=== PATIENT | male | born 1945 | race Hispanic/Latino ===

== ENCOUNTER 2022-02-17 23:36 | Emergency (ER) | payer OTHER ==
--- OUTSIDE RECORDS SUMMARY | 2022-02-17 23:51 | XMS REPORT | Continuity of Care Document ---
:1945 Author Organization [facility] t Address [address] [place] [address] Dr. Pickard [address] [place] [id number] Care Team Providers Name Role Phone Unknown, Physician Primary Care Physician Unavailable SUNNY COLÓN Attending Clinician Unavailable DOROTA LIM Attending Clinician Unavailable Dorota Lim MD Attending Clinician Abeba Mcgarry MD Attending Clinician [phone] Vivian Betancourt MA Attending Clinician Unavailable Tricia Gunderson MA Attending Clinician Unavailable Dez Oliva MD Attending Clinician Yamilex Morocho RN Attending Clinician Unavailable Mony Perez RN Attending Clinician Unavailable Kenya Lieberman MA Attending Clinician Unavailable DANIELA ELKINS Attending Clinician Unavailable April Gomez LVN Attending Clinician Unavailable SUNNY COLÓN M.D. Attending Clinician Unavailable Faviola Attending Clinician Unavailable Gomez Hernandez Attending Clinician [phone] BILLIE CAMPBELL Attending Clinician Unavailable Sunny Colón Attending Clinician DOROTA LIM Admitting Clinician Unavailable ABEBA MCGARRY Admitting Clinician Unavailable Faviola Admitting Clinician Unavailable Jami Vera Admitting Clinician Payers Payer Name Policy Type Policy Number Effective Date Expiration Date S [facility] [place] A AND [id number] 2011 B 00:00:00 MEDICARE [place]: [id number] 2011 ROXIMITY 00:00:00 [employer] [id number] 2011 00:00:00 Problems Condition Condition Condition Status Onset Resolution Last Treating Co mments Source Name Details Category Date Date Treatment Clinician Date Carpal Carpal Disease Active 2020-06 Overview: Method i tunnel tunnel 0-[address] syndrome syndrome 00:00: g of this Hos jace of right of right 00 note l wrist wrist might be different from the original. Added automatic ally from request for surgery [id number] Vitiligo Vitiligo Disease Active Metho di 12-20 st 00:00: Hospita 00 l Heart Heart Disease Active Overview: Method i murmur murmur 10-[address] 00:00: g of this Hospita 00 note l might be different from the original. 10/[address] Felder mild AVS, mod to severe LAE, tr MR Recurrent Recurrent Disease Active Met [facility]odi [place] 08-04 st 00:00: Hospita 00 l Thrombocyt Thrombocyt Disease Active M ethodi openia openia 06-11 st 00:00: Hospita 00 l Anemia due Anemia due Disease Active Overview : Methodi to stage 3 to stage 3 06-[address] chronic chronic 00:00: g of this Hospi ta kidney kidney 00 note l disease disease might be different from the original. Dr Sunny Colón fax [phone] and appts [phone] Assessmen t & Plan: Formattin g of this note might be different from the original. Diabetic Diabetic Disease Active 2016-06 Overview: Tx thodi eye exam eye exam 08-[address] 00:00: g of this Hospita 00 note l might be different from the original. 05/2017 Dr Purnima Menjivar3/2 018 with DPR both eyes for 3 month fu11/2017 Dr Menjivar with macular edema abnormal exam04/[address] Menjivar5/[address] Menjivar with macular edema to keep blood sugar hgba1c <7%01/2019 / 2021 Dr Menjivar with OD injection ACUTE ACUTE Diagnosis Active 2017-04-08 Mem oria RENAL RENAL 03-01 21:56:00 l FAILURE FAILURE 00:00: [place] Active 00 03/01/2017 [facility] Encounter Encounter Disease Active Overview: [facility] Hospita 00 note l might be different from the original. 01/2017 Dr Purnima Menjivar8/2 019 has prolif retinopat hy Dr Purnima Menjivar6/2 020 did have fu DM retinopat hy for left eye avastin injection 09/[address] Menjivar6/[address] Menjivar has PDR both eyes left no macular edema for avastin injection 01/2021 did have fu and injection 08/2021 Dr Menjivar has PDR OU OD macular edema and no macular edema 12/2021 had fu PDR out for avastin injection s Dr Menjivar Anemia due Anemia due Disease Active Overview : Methodi to chronic to chronic 01-[address] kidney kidney 00:00: g of this Hospita disease disease 00 note l might be different from the original. Will see Dr Katie khoury Chronic Chronic Disease Active 2015-06 Overview: Meth solo kidney kidney 06-[address] disease, disease, 00:00: g of this Hos jace stage III stage III 00 note l (moderate) (moderate) might be different from the original. Dr Weir 06/2016 cr 2.505/[address] Matthew Colón is the new Doctor fax [phone] and phone is [phone] with [place] Physician Radha CERVANTES from [employer] ast Assessmen t & Plan: Formattin g of this note might be different from the original. Type 2 Type 2 Disease Active 2015-06 Methodi diabetes diabetes - st mellitus mellitus 00:00: Hospit a with renal with renal 00 l complicati complicati on on Aortic Aortic Disease Active Overview: Method i valve valve 01-[address] stenosis stenosis 00:00: g of this Hos jace 00 note l might be different from the original. 12/2014 was mild stenosis2 013 echo and nuclear stress (wnl) CXR10/201 7 severe LAE, mild and mild TR and severe pulmonary HTNPleura l eff 11/03/2020 echo LVH mild to mod, EF 60-65%, AV stenosis mild Dr Felder Hematuria Hematuria Disease Active 2010-06 Met hodi 2-14 st 00:00: Hospita 00 l Proteinuri Proteinuri Disease Active 2010-06 Overview : Methodi a a 07-[address] 00:00: g of this Hospita 00 note l might be different from the original. Overview: Proteinur ia-12/201 2-3000 mg. Vitamin D Vitamin D Disease Active 2010-06 Met hodi deficiency deficiency 07-10 00:00: Hospita 00 l Hypertrigl Hypertrigl Disease Active 2007-06 M ethodi yceridemia yceridemia 00:00: Hospita 00 l Hypertensi Hypertensi Disease Active 2007-06 M ethodi on on 00:00: Hospita 00 l Cerebrovas Cerebrovas Disease Active 2004-06 Overview : Methodi cular cular [address] accident accident 00:00: g of this Hos jace (CVA) (CVA) 00 note l might be different from the original. Overview: hemorrhag ic 2006 Acute Acute Problem Active [facility] renal renal Physici failure failure ans superimpos superimpos ed on ed on stage 3 stage 3 chronic chronic kidney kidney disease disease Malnutriti Malnutriti Problem Active U T on on Physici ans Obstructiv Obstructi Problem Resolve 2017-04-04 Memoria e sleep ve sleep d 00:34:24 l apnea apnea [place] syndrome syndrome (disorder) (disorder) Resolved Problem 04/04/2017 [facility] Diabetes Diabetes Problem Resolve 2017-04-04 Memoria mellitus mellitus d 00:34:24 l (disorder) (disorder) He rmann Resolved Problem 04/04/2017 [facility] Hyperlipid Hyperlipi Problem Resolve 2017-04-04 Memoria emia demia d 00:34:24 l (disorder) (disorder) He rmann Resolved Problem 04/04/2017 [facility] Allergies, Adverse Reactions, Alerts Allergy Allergy Status Severity Reaction(s) Onset Inactive Treating Comm ents Source Name Type Date Date Clinician Cefepime Propensi Active Other (See 2018-06 ATN/AIN M ethodi ty to Comments) adverse 00:00: Hospita reaction 00 l s to drug Matt Propensi Active 2016-06 angioedem Metho di Inhibito ty to 06-19 st rs adverse 00:00: Hospita reaction 00 l s to drug MATT Allergy Active [facility] Inhibito to drug Physici rs (finding ans ) MATT MATT Active Severe Memoria Inhibito Inhibito l rs<sup>1 rs<sup>1 Alli n </sup> </sup> cefepime cefepime Active Memori a <sup>2</ <sup>2</ l sup> sup> [place] Family History Family Member Diagnosis Comments Start Date Stop Date Source Natural father Diabetes [facility] Natural father Hypertension [facility] Natural father Stroke [facility] mother Diabetes [facility] mother Hypertension [facility] mother Stroke [facility] Social History Social Habit Start Date Stop Date Quantity Comments Source Exposure to Not sure [facility] SARS-CoV-2 (event) History SDOH [facility] History SDOH [facility] Drinks History SDOH [facility] Alcohol Binge Medical [facility] ter Alcohol intake 2021-12-12 2021-12-12 Current drinker of [facility]ist 00:00:00 00:00:00 alcohol (finding) Hospita l Alcohol Comment 2021-12-12 2021-12-[address] 00:00:00 00:00:00 glasses of wine Hospital 1-2 x per month Tobacco use and 2021-03-29 2021-03-29 Smokeless tobacco [facility] exposure 00:00:00 00:00:00 non-user Hospital Sex Assigned At [address] [facility] 00:[facility]00 [facility]00 [facility] Smoking Status Start Date Stop Date Source Tobacco smoking consumption unknown [facility] Medications Ordered Filled Start Stop Current Ordering Indication Dosage Frequency Signature Comments Components Source Medication Medication Date Date Medication? Clinician (SIG) Name Name potassium Yes TAKE ONE Meth solo chloride 9-[address] (K-DUR) 10 00:00: MOUTH Hospit a MEQ CR 00 DAILY l tablet carvediloL Yes TAKE THREE M ethodi (COREG) 8-[address] 12.5 MG 00:00: MOUTH Hospita tablet 00 TWICE A l DAY WITH A MEAL BUMETanide Yes TAKE TWO Met hodi (BUMEX) 1 8-[address] MG tablet 00:00: MOUTH Hospita 00 EVERY l MORNING AND 1 TABLET IN EVENING allopurinoL Yes 300mg QD Take 1 Met hodi (ZYLOPRIM) 8-[address] 300 MG 00:00: (300 mg Hospita tablet 00 total) by l mouth daily. allopurinoL 2021- No TAKE ONE M ethodi (ZYLOPRIM) - 08-[address] 300 MG 00:00: 00:00 MOUTH Hospita tablet 00 :00 DAILY l hydrALAZINE Yes TAKE ONE Me thodi (APRESOLINE 7-[address] ) 25 MG 00:00: MOUTH Hospita tablet 00 THREE l TIMES A DAY GUAIFENESIN Yes Take by Met hodi /DEXTROMETH 7-[address] ORPHAN 10:22: Hospita (CORICIDIN 18 l HBP ORAL) cholecalcif Yes 2000U QD Take 2,000 Methodi jacobo, 7-[address] vitamin D3, 10:22: mouth Hospi ta (VITAMIN 18 daily. l D3) 1,000 unit tablet pseudoepHED Yes 1{tbl} Q12H Take 1 Me thodi rine-guaife 7- tablet by st nesin 10:22: mouth Hospita (MUCINEX D) 18 every 12 l 60-600 mg (twelve) per 12 hr hours as tablet needed for allergies. glimepiride Yes [id number] TAKE ONE Methodi (AMARYL) 1 -[address] MG tablet 00:00: MOUTH Hospita 00 DAILY l BEFORE BREAKFAST BUMETanide 2021- No TAKE TWO Me thodi (BUMEX) 1 6-27 08- TABLETS BY st MG tablet 00:00: 00:00 MOUTH Hospit a 00 :00 EVERY l MORNING AND ONE TABLET IN THE EVENING clotrimazol Yes [id number] APPLY TO Methodi e-betametha -[address] sone 00:00: AREA(S) Hospita (LOTRISONE) 00 TWO TIMES l 1-0.05 % A DAY cream carvediloL 2021- No TAKE THREE Methodi (COREG) 4-29 08-[address] 12.5 MG 00:00: 00:00 MOUTH Hospita tablet 00 :00 TWICE A l DAY WITH A MEAL BUMETanide 2021- No TAKE TWO Me thodi (BUMEX) 1 -29 06-[address] MG tablet 00:00: 00:00 MOUTH Hospit a 00 :00 EVERY l MORNING AND TAKE ONE TABLET BY MOUTH EVERY EVENING Accu-Chek Yes [id number] USE ONE M ethodi Softclix 4-[address] Lancets 00:00: TEST DAILY Hosp molina lancets 00 l hydrALAZINE 2021- No 25mg Q.[id number] Take 1 Methodi (APRESOLINE 4- 07-10 [id number] tablet (25 st ) 25 MG 00:00: 00:00 3D mg total) Hosp molina tablet 00 :00 by mouth 3 l (three) times a day. Accu-Chek Yes [id number] USE ONE M ethodi Alison Plus 3-[address] test strp 00:00: TEST DAILY Ho spita strip test 00 l strips potassium 2021- No 10meq QD Take 1 Meth solo chloride 3- 09-02 tablet (10 st (K-DUR) 10 00:00: 00:00 mEq total) Hospita MEQ CR 00 :00 by mouth l tablet daily. BUMETanide 2021- No TAKE TWO Me thodi (BUMEX) 1 08-05-[address] MG tablet 00:00: 00:00 MOUTH Hospit a 00 :00 EVERY l MORNING AND TAKE ONE TABLET BY MOUTH EVERY EVENING Accu-Chek 2021- No [id number] USE ONE Methodi Softclix 2-01 10-[address] Lancets 00:00: 00:00 TEST DAILY Hos jace lancets 00 :00 l hydrALAZINE 2021- No TAKE ONE M ethodi (APRESOLINE 1- 04-[address] ) 25 MG 00:00: 00:00 MOUTH Hospita tablet 00 :00 THREE l TIMES A DAY carvediloL 2020-06- No TAKE 3 Meth solo (COREG) 2-28 04-[address] 12.5 MG 00:00: 00:00 MOUTH TWO Hosp molina tablet 00 :00 TIMES A l DAY WITH A MEAL BUMETanide 2020-06 No TAKE TWO Me thodi (BUMEX) 1 2-28 02-[address] MG tablet 00:00: 00:00 MOUTH Hospit a 00 :00 EVERY l MORNING AND TAKE ONE TABLET BY MOUTH EVERY EVENING acetaminoph 2020-06 [place] [id number] 1{tbl} Q4H Take 1-2 Methodi en-codeine 2-10 12-[address] (TYLENOL 00:00: 05:59 mouth Hospita WITH 00 :00 every 4 l CODEINE #3) (four) 300-30 mg hours as per tablet needed for moderate pain for up to 3 days .acute pain. NIFEdipine 2020-06 No 30mg QD Take 1 Meth solo ER 07-10 tablet (30 st (PROCARDIA- 00:00: 05:59 mg total) Hospita XL) 30 MG 00 :00 by mouth l 24 hr daily. tablet clotrimazol 2020-06 No [id number] APPLY TO Methodi e-betametha 07-[address] sone 00:00: 00:00 AREA(S) Hospita (LOTRISONE) 00 :00 TWO TIMES l 1-0.05 % A DAY cream tamsulosin 2020-06 Yes TAKE ONE Met hodi (FLOMAX) 0-[address] 0.4 mg 00:00: MOUTH Hospita capsule 00 DAILY l BUMETanide 2020-06- No TAKE TWO Me thodi (BUMEX) 1 0-29 12-[address] MG tablet 00:00: 00:00 MOUTH Hospit a 00 :00 EVERY l MORNING AND 1 TABLET IN EVENING doxycycline 2020-06 Yes 100mg Q.5D Take 100 U T (Vibramycin 0-28 mg by Health ) 100 MG 13:39: mouth 2 capsule 10 (two) times a day. Take with at least 8 ounces (large glass) of water, do not lie down for 30 minutes after glimepiride 2020-06 Yes 1mg Take 1 mg U T (Amaryl) 1 0-28 by mouth 1 Hea lth MG tablet 13:39: (one) time 10 each day before breakfast. hydrALAZINE 2020-06 Yes 25mg Q.[id number] Take 25 mg UT (Apresoline 0-28 [id number] by mouth 3 Health ) 25 MG 13:39: 3D (three) tablet 10 times a day. NIFEdipine 2020-06 Yes 30mg Take 30 mg U T CC (Adalat 0-28 by mouth 1 Hea lth CC) 30 MG 13:39: (one) time 24 hr 10 each day tablet before breakfast. Do not crush, chew, or split. predniSONE 2020-06 Yes 10mg QD Take 10 mg U T (Deltasone) 0-28 by mouth 1 He alth 10 MG 13:39: (one) time tablet 10 each day. atorvastati 2020-06 Yes 20mg QD Take 20 mg UT n (Lipitor) 0-28 by mouth 1 He alth 20 MG 13:39: (one) time tablet 10 each day. bumetanide 2020-06 Yes 1mg Q.5D Take 1 mg UT (Bumex) 0.5 0-28 by mouth 2 He alth MG tablet 13:39: (two) 10 times a day. carvedilol 2020-06 Yes 37mg Take 37 mg U T (Coreg) 0-28 by mouth 2 Health 12.5 MG 13:39: (two) tablet 10 times a day with meals. ergocalcife 2020-06 Yes [id number] Take UT rol 0-28 50,000 Health (Vitamin 13:39: Units by D-2) 1.25 10 mouth 1 MG ([id number] (one) time UT) capsule per week. allopurinol 2020-06 Yes 300mg QD Take 300 U T (Zyloprim) 0-28 mg by Health 300 MG 13:39: mouth 1 tablet 08 (one) time each day. doxycycline 2020-06- No [id number] 100mg Q.5D Take 1 Methodi (VIBRAMYCIN 0-26 11-[address] ) 100 MG 00:00: 04:59 (100 mg Hospi ta capsule 00 :00 total) by l mouth 2 (two) times a day for 7 days. predniSONE 2020-06- No [id number] 10mg QD Take 1 Methodi (DELTASONE) 0-26 11-03 tablet (10 s t 10 mg 00:00: 04:59 mg total) Hospit a tablet 00 :00 by mouth l daily for 7 days. NIFEdipine 2020-06 No 30mg QD Take 1 Meth solo ER 0 12- tablet (30 st (PROCARDIA- 00:00: 00:00 mg total) Hospita XL) 30 MG 00 :00 by mouth l 24 hr daily. tablet glimepiride 2021- No [id number] TAKE ONE Methodi (AMARYL) 1 01-11- TABLET BY st MG tablet 00:00: 00:00 MOUTH Hospit a 00 :00 DAILY l BEFORE BREAKFAST carvediloL 2020- No TAKE THREE Methodi (COREG) 01-11- TABLETS BY st 12.5 MG 00:00: 00:00 MOUTH Hospita tablet 00 :00 TWICE A l DAY WITH MEAL allopurinoL No 300mg QD Take 1 Me thodi (Zyloprim) 01-[address] 300 MG 00:00: 00:00 (300 mg Hospita tablet 00 :00 total) by l mouth daily. clotrimazol 2020- No [id number] APPLY TO Methodi e-betametha 01-[address] sone 00:00: 00:00 AREA(S) Hospita (LOTRISONE) 00 :00 TWO TIMES l 1-0.05 % A DAY cream BUMETanide 2020- No TAKE TWO Me thodi (BUMEX) 1 12-10 10-[address] MG tablet 00:00: 00:00 MOUTH Hospit a 00 :00 EVERY l MORNING AND TAKE ONE TABLET BY MOUTH EVERY EVENING NIFEdipine No 60mg QD Take 1 Meth solo XL 3-16 - tablet (60 st (PROCARDIA 00:00: 00:00 mg total) H ospita XL) 60 MG 00 :00 by mouth l 24 hr daily. tablet Accu-Chek 2021- No USE ONE Meth solo Alison Plus 07-[address] test strp 00:00: 00:00 TEST DAILY H ospita strip test 00 :00 l strips Accu-Chek 2021- No [id number] TESTING Methodi Softclix 2- DAILY st Lancets 00:00: 00:00 Hospita lancets 00 :00 l atorvastati 2019-06 Yes 20mg QD Take 1 Meth solo n (Lipitor) 2-16 tablet (20 st 20 mg 00:00: mg total) Hospita tablet 00 by mouth l daily. Default OP ins hydrALAZINE 2019-06- No TAKE ONE M ethodi (APRESOLINE 07-[address] ) 25 MG 00:00: 00:00 MOUTH Hospita tablet 00 :00 THREE l TIMES A DAY tamsulosin 2019-06- No TAKE ONE Me thodi (FLOMAX) 07-[address] 0.4 mg 00:00: 00:00 MOUTH Hospita capsule 00 :00 DAILY l predniSONE 2016-06 Yes See Memoria 5 mg oral 0-25 Instructio l tablet 15:20: ns, Take 3 Damari nn 00 tablets by mouth daily for three days (04/03-), then 2 tablet by mouth for five days (04/06-) and then 1 tablet by mouth for five days (04/11-), # 24 tab, 0 Refill(s) predniSONE 2016-06 Yes See Memoria 5 mg oral 0-25 Instructio l tablet 15:20: ns, Take 3 Damari nn 00 tablets by mouth daily for three days (04/03-), then 2 tablet by mouth for five days (04/06-) and then 1 tablet by mouth for five days (04/11-), # 24 tab, 0 Refill(s) aspirin 81 2016-06 Yes 81 mg = 1 Me moria mg tablet, 0-25 tab, PO, l enteric 15:15: Daily, # Alli n coated 00 30 tab, 3 Refill(s) aspirin 81 2016-06 Yes 81 mg = 1 Me moria mg tablet, 0-25 tab, PO, l enteric 15:15: Daily, # Alli n coated 00 30 tab, 3 Refill(s) NIFEdipine 2016-06 Yes 90 mg = 1 Me moria 90 mg oral 0-25 tab, PO, l tablet, 14:50: Daily, # Alli n extended 00 30 tab, 0 release Refill(s) QUEtiapine 2016-06 Yes 25 mg = 1 Me moria 25 mg oral 0-25 tab, PO, l tablet 14:50: Bedtime, # Damari nn 00 30 tab, 0 Refill(s) bumetanide 2016-06 Yes See Memoria 1 mg oral 0-25 Instructio l tablet 14:50: ns, Take 2 Damari nn 00 tablets (2 mg) by mouth in the morning and 1 tablet (1 mg) by mouth in the evening, # 90 tab, 0 Refill(s) atorvastati 2016-06 Yes 40 mg = 1 M emoria n 40 mg 0-25 tab, PO, l oral tablet 14:50: Bedtime, # [place] 00 30 tab, 0 Refill(s) Ranitidine 2016-06 Yes 150 mg = Mem oria 15 MG/ML 0-25 10 mL, PO, l Oral 14:50: Bedtime, # [place] Solution 00 300 mL, 0 Refill(s) Hydralazine 2016-06 Yes 25 mg = 1 M emoria Hydrochlori 0-25 tab, PO, l de 25 MG 14:50: TID, # 90 Herm shira Oral Tablet 00 tab, 0 Refill(s) carvedilol 2016-06 Yes 37.5 mg = Me moria 12.5 mg 0-25 3 tab, PO, l oral tablet 14:50: Q12H, # Her medrano 00 180 tab, 0 Refill(s) cholecalcif 2016-06 Yes 2,000 Memor ia jacobo 1000 0-25 IntlUnit = l intl units 14:50: 2 tab, PO, H ermann oral tablet 00 Daily, # 60 tab, 0 Refill(s) tamsulosin 2016-06 Yes 0.4 mg = 1 M emoria 0.4 mg oral 0-25 cap, PO, l capsule 14:50: After [place] 00 Dinner, # 30 cap, 0 Refill(s) NIFEdipine 2016-06 Yes 90 mg = 1 Me moria 90 mg oral 0-25 tab, PO, l tablet, 14:50: Daily, # Alli n extended 00 30 tab, 0 release Refill(s) QUEtiapine 2016-06 Yes 25 mg = 1 Me moria 25 mg oral 0-25 tab, PO, l tablet 14:50: Bedtime, # Damari nn 00 30 tab, 0 Refill(s) bumetanide 2016-06 Yes See Memoria 1 mg oral 0-25 Instructio l tablet 14:50: ns, Take 2 Damari nn 00 tablets (2 mg) by mouth in the morning and 1 tablet (1 mg) by mouth in the evening, # 90 tab, 0 Refill(s) atorvastati 2016-06 Yes 40 mg = 1 M emoria n 40 mg 0-25 tab, PO, l oral tablet 14:50: Bedtime, # [place] 00 30 tab, 0 Refill(s) Ranitidine 2016-06 Yes 150 mg = Mem oria 15 MG/ML 0-25 10 mL, PO, l Oral 14:50: Bedtime, # [place] Solution 00 300 mL, 0 Refill(s) Hydralazine 2016-06 Yes 25 mg = 1 M emoria Hydrochlori 0-25 tab, PO, l de 25 MG 14:50: TID, # 90 Herm shira Oral Tablet 00 tab, 0 Refill(s) carvedilol 2016-06 Yes 37.5 mg = Me moria 12.5 mg 0-25 3 tab, PO, l oral tablet 14:50: Q12H, # Her medrano 00 180 tab, 0 Refill(s) cholecalcif 2016-06 Yes 2,000 Memor ia jacobo 1000 0-25 IntlUnit = l intl units 14:50: 2 tab, PO, H ermann oral tablet 00 Daily, # 60 tab, 0 Refill(s) tamsulosin 2016-06 Yes 0.4 mg = 1 M emoria 0.4 mg oral 0-25 cap, PO, l capsule 14:50: After Dinner, # 30 cap, 0 Refill(s) heparin 2016-06 No Notes: Memoria 0-25 porcine l 05:00: heparin heparin 2016-06 No Notes: Memoria 0-25 porcine l 05:00: heparin Bumex 2016-06 No Notes: Memoria 0-24 (Same As: l 22:00: Bumex) Lovenox 2016-06 No 40 mg, Memoria 0-24 Route: l 22:00: SUB-Q, Drug form: INJ, [id number], Dosing Weight 102.455, kg, Start date: 04/01/17 17:00:00 CDT, Duration: 30 day, Stop date: 04/30/17 17:00:00 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 Expires in days from ____Date Insulin 2016-06 No 60 units) Vince yasmany Lispro 0-24 WASTE: F/P l 18:51: - Black; E - Municipal Trash Bin Stable for 28 days at room temperatur e. Expires in days from ____Date Bumetanide 2016-06 No Notes: Memor ia 0-24 (Same As: l 16:49: Bumex) Bumetanide 2016-06 No Notes: Memor ia 0-24 (Same As: l 16:49: Bumex) Prednisone 2016-06 No Notes: Memor ia 0-24 Take with l 14:00: food. Prednisone 2016-06 No Notes: Memor ia 0-24 Take with l 14:00: food. Insulin 2016-06 No 60 units) Vince yasmany Lispro 0-24 WASTE: F/P l 12:30: - Black; E - Municipal Trash Bin Stable for 28 days at room temperatur e. Expires in days from ____Date Insulin 2016-06 No 60 units) Vince yasmany Lispro 0-24 WASTE: F/P l 12:30: - Black; E [place] 00 - Municipal Trash Bin Stable for 28 days at room temperatur e. Expires in days from ____Date Insulin 2016-06 No 60 units) Vince yasmany regular 0-22 WASTE: F/P l 15:07: - Black; E [place] 00 - Municipal Trash Bin Stable for 28 days at room temperatur e Expires in days from ____Date Insulin 2016-06 No 60 units) Vince yasmany regular 0-22 WASTE: F/P l 15:07: - Black; E [place] 00 - Municipal Trash Bin Stable for 28 days at room temperatur e Expires in days from ____Date Prednisone 2016-06 No Notes: Memor ia 0-21 Take with l 14:00: food. [place] 00 Prednisone 2016-06 No Notes: Memor ia 0-21 Take with l 14:00: food. [place] 00 Coreg 2016-06 No Notes: Memoria 0-19 Give with l 15:30: food. [place] 00 (Same As: Coreg) Coreg 2016-06 No Notes: Memoria 0-19 Give with l 15:30: food. [place] 00 (Same As: Coreg) insulin 2016-06 No Notes: Memoria glargine 0-19 Same as: l 15:00: Lantus) Do [place] 00 not hold insulin without contacting prescriber WASTE: F/P - Black; E - Municipal Trash Bin Insulin 2016-06 No Notes: Memoria Glargine 0-19 Same as: l 100 UNT/ML 15:00: Lantus) Do H ermann Injectable 00 not hold Solution insulin [Lantus] without contacting prescriber WASTE: F/P - Black; E - Municipal Trash Bin insulin 2016-06 No Notes: Memoria glargine 0-19 Same as: l 15:00: Lantus) Do [place] 00 not hold insulin without contacting prescriber WASTE: F/P - Black; E - Municipal Trash Bin Insulin 2016-06 No Notes: Memoria Glargine 0-19 Same as: l 100 UNT/ML 15:00: Lantus) Do H ermann Injectable 00 not hold Solution insulin [Lantus] without contacting prescriber WASTE: F/P - Black; E - Municipal Trash Bin Prednisone 2016-06 No Notes: Memor ia 0-19 Take with l 14:00: food. [place] 00 Prednisone 2016-06 No Notes: Memor ia 0-19 Take with l 14:00: food. Insulin 2016-06 No 5 unit, Memoria regular 0-19 Route: l 02:05: SUB-Q, [place] 00 ONCE, Dosing Weight 102.455, kg, Start date: 03/26/17 21:05:00 CDT, Stop date: 03/26/17 21:05:00 CDT Insulin 2016-06 No 5 unit, Memoria regular 0-19 Route: l 02:05: SUB-Q, [place] 00 ONCE, Dosing Weight 102.455, kg, Start date: 03/26/17 21:05:00 CDT, Stop date: 03/26/17 21:05:00 CDT Calmoseptin 2016-06 No 1 appl, Mem oria e 0-18 Route: l 14:00: TOP, [place] 00 Daily, Start date: 03/26/17 9:00:00 CDT, Duration: 30 day, Stop date: 04/24/17 9:00:00 MELTER CLERK Calmoseptin 2016-06 No 1 appl, Mem oria e 0-18 Route: l 14:00: TOP, [place] 00 Daily, Start date: 03/26/17 9:00:00 CDT, Duration: 30 day, Stop date: 04/24/17 9:00:00 MELTER CLERK Lidocaine 2016-06 No Notes: Memori a Hydrochlori 0-17 (Same as: l de 10 MG/ML 20:50: Xylocaine) [place] Injectable 00 Solution Lidocaine 2016-06 No Notes: Memori a Hydrochlori 0-17 (Same as: l de 10 MG/ML 20:50: Xylocaine) [place] Injectable 00 Solution hydrALAZINE 2016-06 No Notes: Vince yasmany 0-17 (Same as: l 17:00: Apresoline [place] 00 ) May interfere w/enteral feedings Take With Food. hydrALAZINE 2016-06 No Notes: Vince yasmany 0-17 (Same as: l 17:00: Apresoline [place] 00 ) May interfere w/enteral feedings Take With Food. Hydralazine 2016-06 No 20 mg, Vinec yasmany 0-17 Route: PO, l 16:23: Drug form: [place] 00 TAB, Q6H, Dosing Weight 102.455, kg, Priority: NOW, Start date: 03/25/17 11:23:00 CDT, Duration: 30 day, Stop date: 04/24/17 6:00:00 MELTER CLERK Hydralazine 2016-06 No 20 mg, Vince yasmany 0-17 Route: PO, l 16:23: Drug form: [place] 00 TAB, Q6H, Dosing Weight 102.455, kg, Priority: NOW, Start date: 03/25/17 11:23:00 CDT, Duration: 30 day, Stop date: 04/24/17 6:00:00 MELTER CLERK Hydralazine 2016-06 No Notes: Vince yasmany 0-17 (Same as: l 11:32: Apresoline [place] 00 ) Push over 5 minutes Hydralazine 2016-06 No Notes: Vince yasmany 0-17 (Same as: l 11:32: Apresoline [place] 00 ) Push over 5 minutes Calmoseptin 2016-06 No Notes: Vince yasmany e 0-14 (Same as: l 15:42: Calmosepti [place] ne) Calmoseptin 2016-06 No Notes: Vince yasmany e 0-14 (Same as: l 15:42: Calmosepti [place] 00 ne) Prednisone 2016-06 No Notes: Memor ia 0-14 (Same as: l 14:07: PredniSONE [place] 00 ) Take with food. Prednisone 2016-06 No Notes: Memor ia 0-14 (Same as: l 14:07: PredniSONE [place] ) Take with food. Ranitidine 2016-06 No Notes: Memor ia 0-14 (Same l 02:00: as:Zantac) [place] 00 Take before or with meals Ranitidine 2016-06 No Notes: Memor ia 0-14 (Same l 02:00: as:Zantac) [place] 00 Take before or with meals Fentanyl 2016-06 No 50 Memoria 0-13 microgram, l 17:14: Route: IV, [place] 00 ONCE, Dosing Weight 102.455, kg, Start date: 03/21/17 12:14:00 CDT, Stop date: 03/21/17 12:14:00 CDT Fentanyl 2017- No 50 Memoria 0-13 microgram, l 17:14: Route: IV, [place] 00 ONCE, Dosing Weight 102.455, kg, Start date: 03/21/17 12:14:00 CDT, Stop date: 03/21/17 12:14:00 CDT Midazolam 2017- No 1 mg, Memoria 0-13 Route: IV, l 17:13: ONCE, Dosing Weight 102.455, kg, Start date: 03/21/17 12:13:00 CDT, Stop date: 03/21/17 12:13:00 CDT Midazolam 2017- No 1 mg, Memoria 0-13 Route: IV, l 17:13: ONCE, Dosing Weight 102.455, kg, Start date: 03/21/17 12:13:00 CDT, Stop date: 03/21/17 12:13:00 CDT Midazolam 2017-1 No 0.5 mg, Memor ia 0-13 Route: IV, l 16:30: ONCE, Dosing Weight 102.455, kg, Start date: 03/21/17 11:30:00 CDT, Stop date: 03/21/17 11:30:00 CDT Fentanyl 2017- No 25 [facility]oria 0-13 microgram, l 16:30: Route: IV, ONCE, Dosing Weight 102.455, kg, Start date: 03/21/17 11:30:00 CDT, Stop date: 03/21/17 11:30:00 CDT Midazolam 2017-1 No 0.5 mg, Memor ia 0-13 Route: IV, l 16:30: ONCE, Dosing Weight 102.455, kg, Start date: 03/21/17 11:30:00 CDT, Stop date: 03/21/17 11:30:00 CDT Fentanyl 2017-1 No 25 Memoria 0-13 microgram, l 16:30: Route: IV, ONCE, Dosing Weight 102.455, kg, Start date: 03/21/17 11:30:00 CDT, Stop date: 03/21/17 11:30:00 CDT Prednisone 2016-06 No 80 mg, Memor ia 0-13 Route: PO, l 14:00: Daily, Dosing Weight 102.455, kg, Start date: 03/21/17 9:00:00 CDT, Duration: 30 day, Stop date: 04/19/17 9:00:00 MELTER CLERK Insulin 2016-06 No Notes: [facility] Glargine 0-13 Same as: l 100 UNT/ML 14:00: Lantus) Do H ermann Injectable 00 not hold Solution insulin [Lantus] without contacting prescriber WASTE: F/P - Black; E - Municipal Trash Bin Prednisone 2016-06 No 80 mg, Memor ia 0-13 Route: PO, l 14:00: Daily, Dosing Weight 102.455, kg, Start date: 03/21/17 9:00:00 CDT, Duration: 30 day, Stop date: 04/19/17 9:00:00 MELTER CLERK Insulin 2016-06 No Notes: [facility] Glargine 0-13 Same as: l 100 UNT/ML 14:00: Lantus) Do H [place] Injectable 00 not hold Solution insulin [Lantus] without contacting prescriber WASTE: F/P - Black; E - Municipal Trash Bin remove 2016-06 No Notes: Memoria patch 0-13 Remove l 02:00: patch 12 [place] 00 hours after applicatio n each day. remove 2016-06 No Notes: Memoria patch 0-13 Remove l 02:00: patch 12 [place] 00 hours after applicatio n each day. Prednisone 2016-06 No Notes: Memor ia 0-12 Take with l 22:05: food. [place] 00 Prednisone 2016-06 No Notes: Memor ia 0-12 Take with l 22:05: food. Colchicine 2016-06 No 0.6 mg, 1 Me moria 0-12 tab, l 14:00: Route: PO, Drug form: TAB, Daily, Dosing Weight 102.455, kg, Start date: 03/20/17 9:00:00 CDT, Duration: 30 day, Stop date: 04/18/17 9:00:00 MELTER CLERK Prednisone 2016-06 No Notes: Memor ia 0-12 Take with l 14:00: food. Lidocaine 2016-06 No Notes: Memori a 0.05 MG/MG 0-12 Apply only l Transdermal 14:00: once for He rmann Patch 00 up to 12 hours in a 24-hour period (12 hours on and 12 hours off). (Same as: Lidoderm) "Remove old patch before applicatio n of new patch" Colchicine 2016-06 No 0.6 mg, 1 Me moria 0-12 tab, l 14:00: Route: PO, Drug form: TAB, Daily, Dosing Weight 102.455, kg, Start date: 03/20/17 9:00:00 CDT, Duration: 30 day, Stop date: 04/18/17 9:00:00 MELTER CLERK Prednisone 2016-06 No Notes: Memor ia 0-12 Take with l 14:00: food. Lidocaine 2016-06 No Notes: Memori a 0.05 MG/MG 0-12 Apply only l Transdermal 14:00: once for He rmann Patch 00 up to 12 hours in a 24-hour period (12 hours on and 12 hours off). (Same as: Lidoderm) "Remove old patch before applicatio n of new patch" acetaminoph 2016-06 No Notes: Vince yasmany en-hydrocod 0-11 (Same as: l one 20:00: Schlater [place] 00 325/5) Do not exceed 4gm/day of acetaminop hen. acetaminoph 2016-06 No Notes: Vince yasmany en-hydrocod 0-11 (Same as: l one 20:00: Schlater [place] 00 325/5) Do not exceed 4gm/day of acetaminop hen. Morphine 2016-06 No 4 mg, Memoria 0-11 Route: l 19:27: IVP, ONCE, Dosing Weight 102.455, kg, Start date: 03/19/17 14:27:00 CDT, Stop date: 03/19/17 14:27:00 CDT Morphine 2016-06 No 4 mg, Memoria 0-11 Route: l 19:27: IVP, ONCE, Dosing Weight 102.455, kg, Start date: 03/19/17 14:27:00 CDT, Stop date: 03/19/17 14:27:00 CDT albumin 2016-06 No Notes: Lot Vince yasmany human 25% 0-11 #: l intravenous 17:00: [place] solution 00 ___ Mfg: (Same as: Plasbumin- 25) "blood product derivative " WASTE: F/P - Red; E -Red MEDICATION WASTE Product Size: 25 gm Product Wasted: ___ gm Bumetanide 2016-06 No Notes: Memor ia 0-11 (Same As: l 17:00: Bumex) [place] 00 albumin 2016-06 No Notes: Lot Vince jade human 25% 0-11 #: l intravenous 17:00: [place] solution 00 ___ Mfg: (Same as: Plasbumin- 25) "blood product derivative " WASTE: F/P - Red; E -Red MEDICATION WASTE Product Size: 25 gm Product Wasted: ___ gm Bumetanide 2016-06 No Notes: Memor ia 0-11 (Same As: l 17:00: Bumex) [place] 00 Aquaphor 2016-06 No 1 appl, Memori a 0-11 Route: l 14:37: TOP, TID, [place] 00 Drug form: OINT, PRN as needed for dry skin, Start date: 03/19/17 9:37:00 CDT, Duration: 30 day, Stop date: 04/18/17 9:36:00 MELTER CLERK Aquaphor 2016-06 No 1 appl, Memori a 0-11 Route: l 14:37: TOP, TID, [place] 00 Drug form: OINT, PRN as needed for dry skin, Start date: 03/19/17 9:37:00 CDT, Duration: 30 day, Stop date: 04/18/17 9:36:00 MELTER CLERK cefepime 2016-06 No Notes: [facility]oria 0-11 (Same As: l 05:00: Maxipime) [place] 00 MEDICATION WASTE Product Size: 1000 mg Product Wasted: ___ mg cefepime 2016-06 No Notes: [facility] 0-11 (Same As: l 05:00: Maxipime) MEDICATION WASTE Product Size: 1000 mg Product Wasted: ___ mg Flomax 2016-06 No Notes: [facility] 0-10 (Same As: l 22:00: Flomax) "Do Not Crush" Flomax 2016-06 No Notes: [facility]oria 0-10 (Same As: l 22:00: Flomax) "Do Not Crush" potassium 2016-06 No 40 mEq, 2 Mem oria chloride 20 0-10 tab, l mEq oral 11:10: Route: PO, Her medrano tablet, 00 Drug form: extended ERTAB, release ONCE, Dosing Weight 102.455, kg, Start date: 03/18/17 6:10:00 CDT, Stop date: 03/18/17 6:10:00 CDT potassium 2016- No 40 mEq, 2 Mem oria chloride 20 0-10 tab, l mEq oral 11:10: Route: PO, Her medrano tablet, 00 Drug form: extended ERTAB, release ONCE, Dosing Weight 102.455, kg, Start date: 03/18/17 6:10:00 CDT, Stop date: 03/18/17 6:10:00 CDT Bumex 2016-06 No Notes: [facility] 0-10 (Same As: l 01:00: Bumex) Bumex 2016-06 No Notes: [facility] 0-10 (Same As: l 01:00: Bumex) Colchicine 2016-06 No 0.6 mg, Vince yasmany 0-09 Route: PO, l 22:56: Drug form: [place] 00 TAB, ONCE, Dosing Weight 102.455, kg, Start date: 03/17/17 17:56:00 CDT, Stop date: 03/17/17 17:56:00 CDT Colchicine 2016-06 No 0.6 mg, Vince yasmany 0-09 Route: PO, l 22:56: Drug form: [place] 00 TAB, ONCE, Dosing Weight 102.455, kg, Start date: 03/17/17 17:56:00 CDT, Stop date: 03/17/17 17:56:00 CDT Colchicine 2016-06 No 1.2 mg, Vince yasmany 0-09 Route: PO, l 21:56: Drug form: [place] 00 TAB, ONCE, Dosing Weight 102.455, kg, Start date: 03/17/17 16:56:00 CDT, Stop date: 03/17/17 16:56:00 CDT Colchicine 2016-06 No 1.2 mg, Vince yasmany 0-09 Route: PO, l 21:56: Drug form: [place] 00 TAB, ONCE, Dosing Weight 102.455, kg, Start date: 03/17/17 16:56:00 CDT, Stop date: 03/17/17 16:56:00 CDT potassium 2016-06 No Notes: Memori a phosphate 0-09 (Same as: l 155 MG / 16:30: Phos-NaK) Herm shira Sodium 00 Each 1.5 Phosphate, gm pkt has Dibasic 852 250mg MG / Sodium phosphorou Phosphate, s. Mix Monobasic w/2.5oz 130 MG Oral water and Tablet stir. [K-Phos Neutral] potassium 2016-06 No Notes: Memori a phosphate 0-09 (Same as: l 155 MG / 16:30: Phos-NaK) Herm shira Sodium 00 Each 1.5 Phosphate, gm pkt has Dibasic 852 250mg MG / Sodium phosphorou Phosphate, s. Mix Monobasic w/2.5oz 130 MG Oral water and Tablet stir. [K-Phos Neutral] potassium 2016-06 No 15 mmol, Vince yasmany phosphate 0-09 Route: l 15:10: IVPB, [place] 00 ONCE, Dosing Weight 102.455, kg, Start date: 03/17/17 10:10:00 CDT, Stop date: 03/17/17 10:10:00 CDT potassium 2016-06 No 15 mmol, Vince yasmany phosphate 0-09 Route: l 15:10: IVPB, [place] 00 ONCE, Dosing Weight 102.455, kg, Start date: 03/17/17 10:10:00 CDT, Stop date: 03/17/17 10:10:00 CDT Magnesium 2016-06 No Notes: Memori a Oxide 0-09 (Same as: l 14:00: Mag-Ox [place] 00 400) Magnesium oxide 677ma=317n g elemental magnesium Dose=____m g magnesium oxide (___mg elemental magnesium) Magnesium 2016-06 No Notes: Memori a Oxide 0-09 (Same as: l 14:00: Mag-Ox [place] 00 400) Magnesium oxide 870zs=705h g elemental magnesium Dose=____m g magnesium oxide (___mg elemental magnesium) potassium 2016-06 No Notes: Memori a chloride 20 0-09 (Same as: l mEq oral 13:00: K-Dur 20) Herm shira tablet, 00 "Do Not extended Crush" release With food and full glass of water potassium 2016-06 No Notes: Memori a chloride 20 0-09 (Same as: l mEq oral 13:00: K-Dur 20) Herm shira tablet, 00 "Do Not extended Crush" release With food and full glass of water Potassium 2016-06 No Notes: Memori a Chloride 0-09 (Same as: l 1.33 MEQ/ML 10:59: Potassium H ermann Oral 00 Chloride) Solution Potassium 2016-06 No Notes: Memori a Chloride 0-09 (Same as: l 1.33 MEQ/ML 10:59: Potassium H ermann Oral 00 Chloride) Solution Bumex 2016-06 No Notes: [facility] 0-08 (Same As: l 21:00: Bumex) [place] 00 Bumex 2016-06 No Notes: [facility] 0-08 (Same As: l 21:00: Bumex) [place] 00 Potassium 2016-06 No Notes: Memori a Chloride 0-08 (Same as: l 14:50: KCL) [place] 00 Infuse no faster than 10 mEq/hr if given peripheral ly. Potassium 2016-06 No Notes: Memori a Chloride 0-08 (Same as: l 14:50: KCL) [place] 00 Infuse no faster than 10 mEq/hr if given peripheral ly. Magnesium 2016-06 No Notes: Memori a Sulfate 0-08 WASTE: F/P l 14:48: - Sink; E - Municipal Trash Bin Magnesium 2016-06 No Notes: Memori a Sulfate 0-08 WASTE: F/P l 14:48: - Sink; E - Municipal Trash Bin magnesium 2016-06 No 1 gm, 100 Mem oria sulfate 0-07 mL, Route: l 19:00: IVPB, Drug form: INJ, ONCE, Start date: 03/15/17 14:00:00 CDT, Stop date: 03/15/17 14:00:00 CDT magnesium 2016-06 No 1 gm, 100 Mem oria sulfate 0-07 mL, Route: l 19:00: IVPB, Drug [place] 00 form: INJ, ONCE, Start date: 03/15/17 14:00:00 CDT, Stop date: 03/15/17 14:00:00 CDT Magnesium 2016-06 No 1 gm, Memoria Sulfate 0-07 Route: l 16:48: IVPB, Drug [place] 00 form: INJ, ONCE, Dosing Weight 102.455, kg, Start date: 03/15/17 11:48:00 CDT, Duration: 2 hr, Stop date: 03/15/17 11:48:00 CDT Magnesium 2016-06 No 1 gm, Memoria Sulfate 0-07 Route: l 16:48: IVPB, Drug [place] 00 form: INJ, ONCE, Dosing Weight 102.455, kg, Start date: 03/15/17 11:48:00 CDT, Duration: 2 hr, Stop date: 03/15/17 11:48:00 CDT Potassium 2016-06 No Notes: Memori a Chloride 0-07 (Same as: l 16:44: K-Dur 20) [place] 00 "Do Not Crush" With food and full glass of water Potassium 2016-06 No Notes: Memori a Chloride 0-07 (Same as: l 16:44: K-Dur 20) [place] 00 "Do Not Crush" With food and full glass of water Potassium 2016-06 No Notes: Memori a Chloride 0-06 (Same as: l 14:00: K-Dur 20) [place] 00 "Do Not Crush" With food and full glass of water potassium 2016-06 No Notes: Memori a phosphate-s 0-06 (Same as: l odium 14:00: Phos-NaK) [place] phosphate 00 Each 1.5 250 mg-280 gm pkt has mg-160 mg 250mg oral powder phosphorou for s. Mix reconstitut w/2.5oz ion water and stir. Magnesium 2016-06 No Notes: Memori a Oxide 0-06 (Same as: l 14:00: Mag-Ox [place] 00 400) Magnesium oxide 123eq=442w g elemental magnesium Dose=____m g magnesium oxide (___mg elemental magnesium) Potassium 2016-06 No Notes: Memori a Chloride 0-06 (Same as: l 14:00: K-Dur 20) [place] 00 "Do Not Crush" With food and full glass of water potassium 2016-06 No Notes: Memori a phosphate-s 0-06 (Same as: l odium 14:00: Phos-NaK) [place] phosphate 00 Each 1.5 250 mg-280 gm pkt has mg-160 mg 250mg oral powder phosphorou for s. Mix reconstitut w/2.5oz ion water and stir. Magnesium 2016-06 No Notes: Memori a Oxide 0-06 (Same as: l 14:00: Mag-Ox [place] 00 400) Magnesium oxide 963vu=591b g elemental magnesium Dose=____m g magnesium oxide (___mg elemental magnesium) NIFEdipine 2016-06 No Notes: Memor ia 90 mg oral 0-05 (Same as: l tablet, 14:00: Adalat [place] extended 00 CC,Procard release ia XL) "Do Not Crush" "Avoid grapefruit and grapefruit juice" Calcium 2016-06 No Notes: Memoria Carbonate 0-05 (Same As: l 14:00: Tums) [place] 00 Calcium Carbonate 500 mg = 200 mg elemental calcium Dose = mg calcium carbonate ( mg elemental calcium) NIFEdipine 2016-06 No Notes: Memor ia 90 mg oral 0-05 (Same as: l tablet, 14:00: Adalat [place] extended 00 CC,Procard release ia XL) "Do Not Crush" "Avoid grapefruit and grapefruit juice" Calcium 2016-06 No Notes: [facility] Carbonate 0-05 (Same As: l 14:00: Tums) [place] 00 Calcium Carbonate 500 mg = 200 mg elemental calcium Dose = mg calcium carbonate ( mg elemental calcium) potassium 2016-06 No Notes: Memori a phosphate-s 0-05 (Same as: l odium 13:00: Phos-NaK) [place] phosphate 00 Each 1.5 250 mg-280 gm pkt has mg-160 mg 250mg oral powder phosphorou for s. Mix reconstitut w/2.5oz ion water and stir. Magnesium 2016-06 No Notes: Memori a Oxide 0-05 (Same as: l 13:00: Mag-Ox [place] 00 400) Magnesium oxide 113wm=959f g elemental magnesium Dose=____m g magnesium oxide (___mg elemental magnesium) potassium 2016-06 No Notes: Memori a phosphate-s 0-05 (Same as: l odium 13:00: Phos-NaK) [place] phosphate 00 Each 1.5 250 mg-280 gm pkt has mg-160 mg 250mg oral powder phosphorou for s. Mix reconstitut w/2.5oz ion water and stir. Magnesium 2016-06 No Notes: Memori a Oxide 0-05 (Same as: l 13:00: Mag-Ox [place] 00 400) Magnesium oxide 887eq=848g g elemental magnesium Dose=____m g magnesium oxide (___mg elemental magnesium) Acetazolami 2016-06 No Notes: Vince yasmany de 0-05 (Same as: l 12:31: Diamox) [place] Acetazolami 2016-06 No Notes: Vince yasmany de 0-05 (Same as: l 12:31: Diamox) [place] potassium 2016-06 No Notes: Memori a chloride 20 0-05 (Same as: l mEq oral 12:17: K-Dur 20) Herm shira tablet, 00 "Do Not extended Crush" release With food and full glass of water potassium 2016-06 No Notes: Memori a chloride 20 0-05 (Same as: l mEq oral 12:17: K-Dur 20) Herm shira tablet, 00 "Do Not extended Crush" release With food and full glass of water Seroquel 2016-06 No Notes: Memoria 0-05 (Same as: l 02:00: SEROquel) [place] Seroquel 2016-06 No Notes: Memoria 0-05 (Same as: l 02:00: SEROquel) [place] 00 potassium 2016-06 No Notes: Memori a phosphate-s 0-04 (Same as: l odium 22:00: Phos-NaK) [place] phosphate 00 Each 1.5 250 mg-280 gm pkt has mg-160 mg 250mg oral powder phosphorou for s. Mix reconstitut w/2.5oz ion water and stir. potassium 2016-06 No Notes: Memori a phosphate-s 0-04 (Same as: l odium 22:00: Phos-NaK) [place] phosphate 00 Each 1.5 250 mg-280 gm pkt has mg-160 mg 250mg oral powder phosphorou for s. Mix reconstitut w/2.5oz ion water and stir. NIFEdipine 2016-06 No Notes: Memor ia 30 mg oral 0-04 (Same as: l tablet, 16:08: Adalat CC, Herm shira extended 00 Procardia release XL) Give on empty stomach. Take 1 hour before or 2 hours after meal; "Avoid grapefruit and grapefruit juice". Do not crush NIFEdipine 2016-06 No Notes: Memor ia 30 mg oral 0-04 (Same as: l tablet, 16:08: Adalat CC, Herm shira extended 00 Procardia release XL) Give on empty stomach. Take 1 hour before or 2 hours after meal; "Avoid grapefruit and grapefruit juice". Do not crush Acetazolami 2016-06 No Notes: Vince yasmany de 0-04 (Same as: l 15:40: Diamox) Acetazolami 2016-06 No Notes: Vince yasmany de 0-04 (Same as: l 15:40: Diamox) Magnesium 2016-06 No Notes: Memori a Oxide 0-04 (Same as: l 14:00: Mag-Ox [place] 00 400) Magnesium oxide 348qw=238h g elemental magnesium Dose=____m g magnesium oxide (___mg elemental magnesium) potassium 2016-06 No Notes: Memori a phosphate-s 0-04 (Same as: l odium 14:00: Phos-NaK) [place] phosphate 00 Each 1.5 250 mg-280 gm pkt has mg-160 mg 250mg oral powder phosphorou for s. Mix reconstitut w/2.5oz ion water and stir. Magnesium 2016-06 No Notes: Memori a Oxide 0-04 (Same as: l 14:00: Mag-Ox [place] 400) Magnesium oxide 033nw=445m g elemental magnesium Dose=____m g magnesium oxide (___mg elemental magnesium) potassium 2016-06 No Notes: Memori a phosphate-s 0-04 (Same as: l odium 14:00: Phos-NaK) [place] phosphate 00 Each 1.5 250 mg-280 gm pkt has mg-160 mg 250mg oral powder phosphorou for s. Mix reconstitut w/2.5oz ion water and stir. Coreg 2016-06 No Notes: Memoria 0-04 Give with l 02:00: food. [place] 00 (Same As: Coreg) Melatonin 3 2016-06 No Notes: Vince yasmany MG Extended 0-04 (Same as: l Release 02:00: Melatonin) Herm shira Tablet 00 Coreg 2016-06 No Notes: Memoria 0-04 Give with l 02:00: food. [place] 00 (Same As: Coreg) Melatonin 3 2016-06 No Notes: Vince yasmany MG Extended 0-04 (Same as: l Release 02:00: Melatonin) Herm shira Tablet 00 Magnesium 2016-06 No Notes: Memori a Oxide 0-03 (Same as: l 22:00: Mag-Ox [place] 00 400) Magnesium oxide 676zq=468w g elemental magnesium Dose=____m g magnesium oxide (___mg elemental magnesium) potassium 2016-06 No Notes: Memori a chloride 20 0-03 (Same as: l mEq oral 22:00: K-Dur 20) Herm shira tablet, 00 "Do Not extended Crush" release With food and full glass of water Magnesium 2016-06 No Notes: Memori a Oxide 0-03 (Same as: l 22:00: Mag-Ox [place] 00 400) Magnesium oxide 405tr=085i g elemental magnesium Dose=____m g magnesium oxide (___mg elemental magnesium) potassium 2016-06 No Notes: Memori a chloride 20 0-03 (Same as: l mEq oral 22:00: K-Dur 20) Herm shira tablet, 00 "Do Not extended Crush" release With food and full glass of water Calcium 2016-06 No Notes: Memoria Carbonate 0-03 (Same As: l 20:00: Tums) [place] 00 Calcium Carbonate 500 mg = 200 mg elemental calcium Dose = mg calcium carbonate ( mg elemental calcium) Calcium 2016-06 No Notes: Memoria Carbonate 0-03 (Same As: l 20:00: Tums) [place] 00 Calcium Carbonate 500 mg = 200 mg elemental calcium Dose = mg calcium carbonate ( mg elemental calcium) Insulin 2016-06 No 60 units) Vince yasmany regular 0-03 WASTE: F/P l 19:55: - Black; E - Municipal Trash Bin Stable for 28 days at room temperatur e Expires in days from ____Date Dextrose 2016-06 No 25 gm, 50 Vince yasmany 50% Syringe 0-03 mL, Route: l 19:55: IVP, Drug Form: INJ, Dosing Weight 121.409, kg, PRN, PRN Blood Glucose Results, Start date: 03/11/17 14:55:00 CDT, Duration: 30 day, Stop date: 04/10/17 14:54:00 CDT Glucagon 2016-06 No 1 mg, Memoria 0-03 Route: IM, l 19:55: Drug form: [place] 00 PDR/INJ, PRN, Dosing Weight 121.409, kg, PRN Blood Glucose Results, Start date: 03/11/17 14:55:00 CDT, Duration: 30 day, Stop date: 04/10/17 14:54:00 CDT Insulin 2016-06 No 60 units) Vince yasmany regular 0-03 WASTE: F/P l 19:55: - Black; E - [employer] Trash Bin Stable for 28 days at room temperatur e Expires in days from ____Date Dextrose 2016-06 No 25 gm, 50 Vince yasmany 50% Syringe 0-03 mL, Route: l 19:55: IVP, Drug Form: INJ, Dosing Weight 121.409, kg, PRN, PRN Blood Glucose Results, Start date: 03/11/17 14:55:00 CDT, Duration: 30 day, Stop date: 04/10/17 14:54:00 CDT Glucagon 2016-06 No 1 mg, Memoria 0-03 Route: IM, l 19:55: Drug form: [place] 00 PDR/INJ, PRN, Dosing Weight 121.409, kg, PRN Blood Glucose Results, Start date: 03/11/17 14:55:00 CDT, Duration: 30 day, Stop date: 04/10/17 14:54:00 CDT Vancomycin 2016-06 No 2001 mg: Me moria 0-03 infuse l 16:00: over 2.5 [place] 00 hours MEDICATION WASTE Product Size: 1000 mg Product Wasted: ___ mg Vancomycin 2017- No 2001 mg: Me moria 0-03 infuse l 16:00: over 2.5 [place] 00 hours MEDICATION WASTE Product Size: 1000 mg Product Wasted: ___ mg Magnesium 2016-06 No Notes: Memori a Oxide 0-03 (Same as: l 14:00: Mag-Ox [place] 00 400) Magnesium oxide 267js=338d g elemental magnesium Dose=____m g magnesium oxide (___mg elemental magnesium) Magnesium 2016-06 No Notes: Memori a Oxide 0-03 (Same as: l 14:00: Mag-Ox [place] 00 400) Magnesium oxide 645pq=009d g elemental magnesium Dose=____m g magnesium oxide (___mg elemental magnesium) Protonix 2016-06 No Notes: Memoria 0-03 Tablet l 12:30: should not [place] 00 be chewed or crushed. (Same as: Protonix) Protonix 2016-06 No Notes: Memoria 0-03 Tablet l 12:30: should not [place] 00 be chewed or crushed. (Same as: Protonix) potassium 2016-06 No Notes: Memori a chloride 20 0-03 (Same as: l mEq oral 12:29: K-Dur 20) Herm shira tablet, 00 "Do Not extended Crush" release With food and full glass of water potassium 2016-06 No Notes: Memori a chloride 20 0-03 (Same as: l mEq oral 12:29: K-Dur 20) Herm shira tablet, 00 "Do Not extended Crush" release With food and full glass of water Nitroglycer 2016-06 No Notes: Vince yasmany in 0-02 (Same l 22:16: as:Tridil) [place] 00 Final conc = 0.4 mg/ml. Premix bottle. Nitroglycer 2016-06 No Notes: Vince yasmany in 0-02 (Same l 22:16: as:Tridil) [place] 00 Final conc = 0.4 mg/ml. Premix bottle. Hydralazine 2016-06 No Notes: Vince yasmany 0-02 (Same as: l 17:52: Apresoline [place] 00 ) Push over 5 minutes Hydralazine 2016-06 No Notes: Vince yasmany 0-02 (Same as: l 17:52: Apresoline [place] 00 ) Push over 5 minutes Vancomycin 2016-06 No 2000 mg: Me moria 0-02 infuse l 16:01: over 2.5 [place] 00 hours MEDICATION WASTE Product Size: 1000 mg Product Wasted: ___ mg Vancomycin 2016-06 No 2000 mg: Me moria 0-02 infuse l 16:01: over 2.5 [place] 00 hours MEDICATION WASTE Product Size: 1000 mg Product Wasted: ___ mg Vancomycin 2016-06 No 1.75 gm, Mem oria 0-02 Route: l 16:00: IVPB, Drug [place] 00 form: INJ, [id number], Dosing Weight 121.409, kg, Start date: 03/10/17 11:00:00 CDT, Duration: 10 day, Stop date: 03/19/17 11:00:00 CDT, ABX Indication : Pneumonia cefepime 2016-06 No Notes: Memoria 0-02 (Same As: l 16:00: Maxipime) Casey 00 MEDICATION WASTE Product Size: 1000 mg Product Wasted: _0__ mg Vancomycin 2016-06 No 1.75 gm, Mem oria 0-02 Route: l 16:00: IVPB, Drug form: INJ, [id number], Dosing Weight 121.409, kg, Start date: 03/10/17 11:00:00 CDT, Duration: 10 day, Stop date: 03/19/17 11:00:00 CDT, ABX Indication : Pneumonia cefepime 2016-06 No Notes: Memoria 0-02 (Same As: l 16:00: Maxipime) [place] MEDICATION WASTE Product Size: 1000 mg Product Wasted: _0__ mg metoprolol 2016-06 No Notes: Memor ia tartrate 0-02 (Same as: l 15:46: Lopressor) metoprolol 2016-06 No Notes: Memor ia tartrate 0-02 (Same as: l 15:46: Lopressor) Miralax 2016-06 No 17 gm, Memoria 0-02 Route: PO, l 14:00: Daily, [place] Dosing Weight 121.409, kg, Start date: 03/10/17 9:00:00 CDT, Duration: 30 day, Stop date: 04/08/17 9:00:00 CDT Docusate 2016-06 No Notes: [facility] Sodium 50 0-02 (Same as l MG / 14:00: Senokot-S) [place] sennosides, 00 Equiv. to CORRECTION 8.6 MG Alee-Colac Oral Tablet e. Miralax 2016-06 No 17 gm, Memoria 0-02 Route: PO, l 14:00: Daily, [place] 00 Dosing Weight 121.409, kg, Start date: 03/10/17 9:00:00 CDT, Duration: 30 day, Stop date: 04/08/17 9:00:00 CDT Docusate 2016-06 No Notes: [facility] Sodium 50 0-02 (Same as l MG / 14:00: Senokot-S) [place] sennosides, 00 Equiv. to CORRECTION 8.6 MG Alee-Colac Oral Tablet e. Bisacodyl 2016-06 No Notes: Memori a 0-02 (Same As: l 12:37: Dulcolax, [place] 00 Bisco-Lax) Bisacodyl 2016-06 No Notes: Memori a 0-02 (Same As: l 12:37: Dulcolax, [place] 00 Bisco-Lax) bumetanide 2016-06 No Notes: Memor ia 10 mg + 0-02 (Same As: l sodium 12:17: Bumex) [place] chloride 00 0.9% INJ 60 mL bumetanide 2016-06 No Notes: Memor ia 10 mg + 0-02 (Same As: l sodium 12:17: Bumex) [place] chloride 00 0.9% INJ 60 mL Lasix 2016-06 No Notes: [facility] 0-01 (Same as: l 22:00: Lasix) [place] 00 MEDICATION WASTE Product Size: 40 mg Product Wasted: ___ mg Lasix 2016-06 No Notes: [facility] 0-01 (Same as: l 22:00: Lasix) [place] 00 MEDICATION WASTE Product Size: 40 mg Product Wasted: ___ mg bumetanide 2016-06 No Notes: Memor ia 10 mg + 0-01 (Same As: l sodium 21:09: Bumex) [place] chloride 00 0.9% INJ 60 mL Bumex 2016-06 No Notes: [facility] 0-01 (Same As: l 21:09: Bumex) [place] 00 bumetanide 2016-06 No Notes: Memor ia 10 mg + 0-01 (Same As: l sodium 21:09: Bumex) [place] chloride 00 0.9% INJ 60 mL Bumex 2016-06 No Notes: [facility] 0-01 (Same As: l 21:09: Bumex) [place] 00 Labetalol 2016-06 No 20 mg, 4 [place] yasmany 0-01 mL, Route: l 19:05: IVP, Drug [place] 00 form: INJ, ONCE, Dosing Weight 121.409, kg, Start date: 03/09/17 14:05:00 CDT, Stop date: 03/09/17 14:05:00 CDT Labetalol 2016-06 No 20 mg, 4 Vince yasmany 0-01 mL, Route: l 19:05: IVP, Drug [place] 00 form: INJ, ONCE, Dosing Weight 121.409, kg, Start date: 03/09/17 14:05:00 CDT, Stop date: 03/09/17 14:05:00 CDT Lasix 2016-06 No Notes: [facility] 0-01 (Same as: l 18:26: Lasix) [place] 00 MEDICATION WASTE Product Size: 40 mg Product Wasted: ___ mg Lasix 2016-06 No Notes: [facility] 0-01 (Same as: l 18:26: Lasix) [place] 00 MEDICATION WASTE Product Size: 40 mg Product Wasted: ___ mg Hydralazine 2016-06 No Notes: Vince yasmany 0-01 (Same as: l 18:18: Apresoline [place] 00 ) Push over 5 minutes Hydralazine 2016-06 No Notes: Vince yasmany 0-01 (Same as: l 18:18: Apresoline [place] 00 ) Push over 5 minutes Hydralazine 2016-06 No Notes: Vince yasmany 0-01 (Same as: l 15:56: Apresoline ) Push over 5 minutes Hydralazine 2016-06 No Notes: Vince yasmany 0-01 (Same as: l 15:56: Apresoline ) Push over 5 minutes Lasix 2016-06 No Notes: [facility] 0-01 (Same as: l 13:56: Lasix) [place] Lasix 2016-06 No Notes: [facility] 0-01 (Same as: l 13:56: Lasix) [place] Procardia 2016-06 No Notes: Memori a XL 0-01 (Same as: l 13:55: Adalat CC, [place] 00 Procardia XL) Give on empty stomach. Take 1 hour before or 2 hours after meal; "Avoid grapefruit and grapefruit juice". Do not crush Procardia 2016-06 No Notes: Memori a XL 0-01 (Same as: l 13:55: Adalat CC, [place] 00 Procardia XL) Give on empty stomach. Take 1 hour before or 2 hours after meal; "Avoid grapefruit and grapefruit juice". Do not crush Insulin 2016-06 No 60 units) Vince yasmany regular 0-01 WASTE: F/P l 00:23: - Black; E - [facility] Trash Bin Stable for 28 days at room temperatur e Expires in days from ____Date Dextrose 2016-06 No 12.5 gm, Memor ia 50% Syringe 0-01 25 mL, l 00:23: Route: IVP, Drug Form: INJ, Dosing Weight 121.409, kg, PRN, PRN Blood Glucose Results, Start date: 03/08/17 19:23:00 CDT, Duration: 30 day, Stop date: 04/07/17 19:22:00 CDT Glucagon 2016-06 No 1 mg, [facility] 0-01 Route: IM, l 00:23: Drug form: PDR/INJ, PRN, Dosing Weight 121.409, kg, PRN Blood Glucose Results, Start date: 03/08/17 19:23:00 CDT, Duration: 30 day, Stop date: 04/07/17 19:22:00 CDT Insulin 2016-06 No 60 units) Vince yasmany regular 0- WASTE: F/P l 00:23: - Black; E [place] [facility] Trash Bin Stable for 28 days at room temperatur e Expires in days from ____Date Dextrose 2016-06 No 12.5 gm, Memor ia 50% Syringe 0-01 25 mL, l 00:23: Route: [place] 00 IVP, Drug Form: INJ, Dosing Weight 121.409, kg, PRN, PRN Blood Glucose Results, Start date: 03/08/17 19:23:00 CDT, Duration: 30 day, Stop date: 04/07/17 19:22:00 CDT Glucagon 2016-06 No 1 mg, [facility]oria 0 Route: IM, l 00:23: Drug form: [place] PDR/INJ, PRN, Dosing Weight 121.409, kg, PRN Blood Glucose Results, Start date: 03/08/17 19:23:00 CDT, Duration: 30 day, Stop date: 04/07/17 19:22:00 CDT Lasix No Notes: [facility] 03-08 (Same as: l 22:00: Lasix) [place] 00 MEDICATION WASTE Product Size: 40 mg Product Wasted: ___ mg Lasix No Notes: [facility] 03-08 (Same as: l 22:00: Lasix) [place] 00 MEDICATION WASTE Product Size: 40 mg Product Wasted: ___ mg Hydralazine No Notes: Vince yasmany 03-08 (Same as: l 19:36: Apresoline ) Push over 5 minutes Hydralazine No Notes: Vince yasmany 03-08 (Same as: l 19:36: Apresoline ) Push over 5 minutes Lasix No Notes: [facility] 03-08 (Same as: l 18:09: Lasix) [place] 00 MEDICATION WASTE Product Size: 40 mg Product Wasted: ___ mg Lasix No Notes: [facility] 03-08 (Same as: l 18:09: Lasix) [place] 00 MEDICATION WASTE Product Size: 40 mg Product Wasted: ___ mg Albuterol No Notes: Memori a 0.833 MG/ML 03-08 (Same as: l 15:57: Duoneb) [place] Ipratropium 00 Pyatt 0.167 MG/ML Inhalant Solution [DuoNeb] Albuterol No Notes: Memori a 0.833 MG/ML 03-08 (Same as: l / 15:57: Duoneb) [place] Ipratropium 00 Pyatt 0.167 MG/ML Inhalant Solution [DuoNeb] Protonix No Notes: For Mem oria 30 IV push l 14:47: reconstitu [place] 00 te with 10 ml 0.9% sodium chloride and push over 2 minutes. (Same as: Protonix) Protonix No Notes: For Mem oria 9-30 IV push l 14:47: reconstitu [place] 00 te with 10 ml 0.9% sodium chloride and push over 2 minutes. (Same as: Protonix) Lasix No Notes: [facility] 03-08 (Same as: l 14:34: Lasix) [place] 00 MEDICATION WASTE Product Size: 40 mg Product Wasted: ___ mg Lasix No Notes: [facility] 03-08 (Same as: l 14:34: Lasix) [place] 00 MEDICATION WASTE Product Size: 40 mg Product Wasted: ___ mg Sodium 2016-0 No 1 gm, [facility] Chloride 03-08 Route: PO, l 1000 MG 14:00: Drug form: Herm shira Oral Tablet 00 TAB, Daily, Dosing Weight 121.409, kg, Start date: 03/08/17 9:00:00 CDT, Duration: 30 day, Stop date: 04/06/17 9:00:00 CDT Sodium 2016-0 No 1 gm, [facility] Chloride 03-08 Route: PO, l 1000 MG 14:00: Drug form: Herm shira Oral Tablet 00 TAB, Daily, Dosing Weight 121.409, kg, Start date: 03/08/17 9:00:00 CDT, Duration: 30 day, Stop date: 04/06/17 9:00:00 CDT Hydralazine No Notes: Vince yasmany Hydrochlori 9-30 (Same as: l de 10 MG 13:34: Apresoline Her medrano Oral Tablet 00 ) May interfere w/enteral feedings. Take With Food Hydralazine No Notes: Vince yasmany Hydrochlori 9-30 (Same as: l de 10 MG 13:34: Apresoline Her medrano Oral Tablet 00 ) May interfere w/enteral feedings. Take With Food Hydralazine No Notes: Vince yasmany 9-29 (Same as: l 23:56: Apresoline [place] ) Push over 5 minutes Hydralazine No Notes: Vince yasmany 9-29 (Same as: l 23:56: Apresoline [place] 00 ) Push over 5 minutes Lasix No Notes: [facility] 9- (Same as: l 23:29: Lasix) Lasix No Notes: [facility] 9- (Same as: l 23:29: Lasix) Sodium No 2 gm, 2 [facility] Chloride - tab, l 1000 MG 22:00: Route: PO, Herm shira Oral Tablet 00 Drug form: TAB, BID, Dosing Weight 121.409, kg, Start date: 03/07/17 17:00:00 CDT, Duration: 30 day, Stop date: 04/06/17 9:00:00 CDT Sodium No 2 gm, 2 [facility] Chloride - tab, l 1000 MG 22:00: Route: PO, Herm shira Oral Tablet 00 Drug form: TAB, BID, Dosing Weight 121.409, kg, Start date: 03/07/17 17:00:00 CDT, Duration: 30 day, Stop date: 04/06/17 9:00:00 CDT Tylenol No Notes: Do Memor ia 03-07 not exceed l 18:31: 4 gm/day. (Same as: Tylenol) Tylenol No Notes: Do Memor ia 03-07 not exceed l 18:31: 4 gm/day. (Same as: Tylenol) Bisacodyl No Notes: Memori a 03-07 (Same As: l 18:30: Dulcolax, [place] 00 Correctol) (Do Not Crush) "Do Not Crush" Bisacodyl 2016-0 No Notes: Memori a 03-07 (Same As: l 18:30: Dulcolax, [place] 00 Correctol) (Do Not Crush) "Do Not Crush" Insulin 0 No 60 units) Vince yasmany Lispro 03-06 WASTE: F/P l 18:11: - Black; E - [facility] Trash Bin Stable for 28 days at room temperatur e. Expires in days from ____Date Dextrose No 12.5 gm, Memor ia 50% Syringe 03-06 25 mL, l 18:11: Route: [place] 00 IVP, Drug Form: INJ, Dosing Weight 121.409, kg, PRN, PRN Blood Glucose Results, Start date: 03/06/17 13:11:00 CDT, Duration: 30 day, Stop date: 04/05/17 13:10:00 CDT Glucagon 2016-0 No 1 mg, Mem[facility] 03-06 Route: IM, l 18:11: Drug form: [place] 00 PDR/INJ, PRN, Dosing Weight 121.409, kg, PRN Blood Glucose Results, Start date: 03/06/17 13:11:00 CDT, Duration: 30 day, Stop date: 04/05/17 13:10:00 CDT Insulin 2016-0 No 60 units) Vince yasmany Lispro 03-06 WASTE: F/P l 18:11: - Black; E - [facility] Trash Bin Stable for 28 days at room temperatur e. Expires in days from ____Date Dextrose No 12.5 gm, Memor ia 50% Syringe 03-06 25 mL, l 18:11: Route: [place] 00 IVP, Drug Form: INJ, Dosing Weight 121.409, kg, PRN, PRN Blood Glucose Results, Start date: 03/06/17 13:11:00 CDT, Duration: 30 day, Stop date: 04/05/17 13:10:00 CDT Glucagon 2016-0 No 1 mg, Memoria 03-06 Route: IM, l 18:11: Drug form: [place] 00 PDR/INJ, PRN, Dosing Weight 121.409, kg, PRN Blood Glucose Results, Start date: 03/06/17 13:11:00 CDT, Duration: 30 day, Stop date: 04/05/17 13:10:00 CDT atorvastati No Notes: Vince yasmany n 03-06 (Same as: l 02:00: Lipitor) atorvastati No Notes: Vince yasmany n 03-06 (Same as: l 02:00: Lipitor) influenza No Notes: Memori a virus 03-05 (Same as: l vaccine, 23:00: Fluzone Alli n inactivated 00 Quadrivale nt, Fluarix Quadrivale nt) For 3 years of age and older (0.5 mL IM) influenza No Notes: Memori a virus 03-05 (Same as: l vaccine, 23:00: Fluzone Alli n inactivated 00 Quadrivale nt, Fluarix Quadrivale nt) For 3 years of age and older (0.5 mL IM) sodium No 1,000 mL, Memori a chloride 03-05 Rate: 50 l 0.9% 1000 21:53: ml/hr, Alli n ml INJ 00 Infuse 1,000 mL over: 20 hr, Route: IV, Dosing Weight 121.409 kg, Total Volume: 1,000, Start date: 03/05/17 16:53:00 CDT, Duration: 3 day, Stop date: 03/08/17 16:52:00 CDT sodium No 1,000 mL, Memori a chloride 03-05 Rate: 50 l 0.9% 1000 21:53: ml/hr, Alli n ml INJ 00 Infuse 1,000 mL over: 20 hr, Route: IV, Dosing Weight 121.409 kg, Total Volume: 1,000, Start date: 03/05/17 16:53:00 CDT, Duration: 3 day, Stop date: 03/08/17 16:52:00 CDT Albuterol No Notes: Memori a 0.833 MG/ML 03-05 (Same as: l / 20:00: Duoneb) [place] Ipratropium 00 Pyatt 0.167 MG/ML Inhalant Solution [DuoNeb] Albuterol No Notes: Memori a 0.833 MG/ML - (Same as: l / 20:00: Duoneb) [place] Ipratropium 00 Pyatt 0.167 MG/ML Inhalant Solution [DuoNeb] Prednisone No Notes: Memor ia 03-05 Take with l 16:41: food. [place] Prednisone No Notes: Memor ia - Take with l 16:41: food. [place] Albuterol No Notes: Memori a 0.833 MG/ML 03-05 (Same as: l / 15:41: Duoneb) [place] Ipratropium 00 Pyatt 0.167 MG/ML Inhalant Solution [DuoNeb] Albuterol No Notes: Memori a 0.833 MG/ML 03-05 (Same as: l / 15:41: Duoneb) [place] Ipratropium 00 Pyatt 0.167 MG/ML Inhalant Solution [DuoNeb] Lactated No 1,000 mL, Vince yasmany Ringers - Rate: 50 l 1,000 mL 03:14: ml/hr, [place] 00 Infuse over: 20 hr, Route: IV, Dosing Weight 121.409 kg, Total Volume: 1,000, Start date: 03/04/17 22:14:00 CDT, Duration: 30 day, Stop date: 04/03/17 22:13:00 CDT Lactated No 1,000 mL, Vince yasmany Ringers 03-05 Rate: 50 l 1,000 mL 03:14: ml/hr, [place] 00 Infuse over: 20 hr, Route: IV, Dosing Weight 121.409 kg, Total Volume: 1,000, Start date: 03/04/17 22:14:00 CDT, Duration: 30 day, Stop date: 04/03/17 22:13:00 CDT sevelamer No Notes: Memori a 03-04 Same as: l 17:00: Renvela [place] sevelamer No Notes: Memori a 03-04 Same as: l 17:00: Renvela [place] 00 NIFEdipine No 30 mg, Memor ia 30 mg oral 03-04 Route: PO, l tablet, 14:00: Drug form: Herm shira extended 00 ERTAB, release Daily, Dosing Weight 121.4, kg, Start date: 03/04/17 9:00:00 CDT, Duration: 30 day, Stop date: 04/02/17 9:00:00 CDT Miralax No Notes: Memoria 9-26 Dissolve l 14:00: in 8 oz of [place] 00 water or juice. (Same as: Miralax) sennosides, No Notes: Vince yasmany CORRECTION 26 (Same as: l 14:00: Senokot) influenza No Notes: Memori a virus -26 (Same as: l vaccine, 14:00: Fluzone Alli n inactivated 00 Quadrivale nt, Fluarix Quadrivale nt) For 3 years of age and older (0.5 mL IM) NIFEdipine No 30 mg, Memor ia 30 mg oral 03-04 Route: PO, l tablet, 14:00: Drug form: Herm shira extended 00 ERTAB, release Daily, Dosing Weight 121.4, kg, Start date: 03/04/17 9:00:00 CDT, Duration: 30 day, Stop date: 04/02/17 9:00:00 CDT Miralax No Notes: Memoria 9-26 Dissolve l 14:00: in 8 oz of [place] 00 water or juice. (Same as: Miralax) sennosides, No Notes: Vince yasmany CORRECTION -26 (Same as: l 14:00: Senokot) influenza No Notes: Memori a virus 9-26 (Same as: l vaccine, 14:00: Fluzone Alli n inactivated 00 Quadrivale nt, Fluarix Quadrivale nt) For 3 years of age and older (0.5 mL IM) NIFEdipine No Notes: Memor ia 30 mg oral 03-03 (Same as: l tablet, 23:10: Adalat CC, Herm shira extended 00 Procardia release XL) Give on empty stomach. Take 1 hour before or 2 hours after meal; "Avoid grapefruit and grapefruit juice". Do not crush NIFEdipine No Notes: Memor ia 30 mg oral 9-25 (Same as: l tablet, 23:10: Adalat CC, Herm shira extended 00 Procardia release XL) Give on empty stomach. Take 1 hour before or 2 hours after meal; "Avoid grapefruit and grapefruit juice". Do not crush heparin No Notes: Memoria 9-25 porcine l 21:00: heparin heparin No Notes: Memoria 9-25 porcine l 21:00: heparin NIFEdipine No Notes: Memor ia 30 mg oral 9-25 (Same as: l tablet, 20:15: Adalat CC, Herm shira extended 00 Procardia release XL) Give on empty stomach. Take 1 hour before or 2 hours after meal; "Avoid grapefruit and grapefruit juice". Do not crush NIFEdipine No Notes: Memor ia 30 mg oral 9-25 (Same as: l tablet, 20:15: Adalat CC, Herm shira extended 00 Procardia release XL) Give on empty stomach. Take 1 hour before or 2 hours after meal; "Avoid grapefruit and grapefruit juice". Do not crush Bicitra 2016-0 No 15 mL, Memoria oral 25 Route: PO, l solution 18:00: Drug Form: Her marcela EDWARD, Dosing Weight 121.4, kg, TID, Start date: 03/03/17 13:00:00 CDT, Duration: 7 day, Stop date: 03/10/17 9:00:00 CDT Bicitra 2016-0 No 15 mL, Memoria oral 25 Route: PO, l solution 18:00: Drug Form: Her marcela EDWARD, Dosing Weight 121.4, kg, TID, Start date: 03/03/17 13:00:00 CDT, Duration: 7 day, Stop date: 03/10/17 9:00:00 CDT Lactated 2016-0 No 1,000 mL, Vince yasmany Ringers 03-03 Rate: 50 l 1,000 mL 15:29: ml/hr, Infuse over: 20 hr, Route: IV, Dosing Weight 121.4 kg, Total Volume: 1,000, Start date: 03/03/17 10:29:00 CDT, Duration: 30 day, Stop date: 04/02/17 10:28:00 CDT Lactated 2016- No 1,000 mL, Vince yasmany Ringers 03-03 Rate: 50 l 1,000 mL 15:29: ml/hr, [place] 00 Infuse over: 20 hr, Route: IV, Dosing Weight 121.4 kg, Total Volume: 1,000, Start date: 03/03/17 10:29:00 CDT, Duration: 30 day, Stop date: 04/02/17 10:28:00 CDT dextrose No 1,000 mL, Vince yasmany 10% in 03-02 Rate: 40 l water 1,000 21:55: ml/hr, Herm shira mL 00 Infuse over: 25 hr, Route: IV, Dosing Weight 121.4 kg, Total Volume: 1,000, Start date: 03/02/17 16:55:00 CDT, Duration: 30 day, Stop date: 04/01/17 16:54:00 CDT dextrose No 1,000 mL, Vince yasmany 10% in 03-02 Rate: 40 l water 1,000 21:55: ml/hr, Herm shira mL 00 Infuse over: 25 hr, Route: IV, Dosing Weight 121.4 kg, Total Volume: 1,000, Start date: 03/02/17 16:55:00 CDT, Duration: 30 day, Stop date: 04/01/17 16:54:00 CDT methylPREDN No Notes: Vince yasmany ISolone 03-02 (Same l SODium 21:43: as:Solu-ME Damari nn SUCCinate 00 DROL, A-Methapre d) methylPREDN No Notes: Vince yasmany ISolone 03-02 (Same l SODium 21:43: as:Solu-ME Damari nn SUCCinate 00 DROL, A-Methapre d) Insulin No 60 units) Vince yasmany regular 03-02 WASTE: F/P l 20:28: - Black; E [place] 00 - [facility] Trash Bin Stable for 28 days at room temperatur e Expires in days from ____Date Glucagon 2017-0 No 1 mg, Memoria 03-02 Route: IM, l 20:28: Drug form: [place] 00 PDR/INJ, PRN, Dosing Weight 121.4, kg, PRN Blood Glucose Results, Start date: 03/02/17 15:28:00 CDT, Duration: 30 day, Stop date: 04/01/17 15:27:00 CDT Dextrose 2016-0 No 12.5 gm, Memor ia 50% Syringe 03-02 25 mL, l 20:28: Route: [place] 00 IVP, Drug Form: INJ, Dosing Weight 121.4, kg, PRN, PRN Blood Glucose Results, Start date: 03/02/17 15:28:00 CDT, Duration: 30 day, Stop date: 04/01/17 15:27:00 CDT Insulin 2016-0 No 60 units) Vince yasmany regular 03-02 WASTE: F/P l 20:28: - Black; E - [facility] Trash Bin Stable for 28 days at room temperatur e Expires in days from ____Date Glucagon 2016-0 No 1 mg, Memoria 03-02 Route: IM, l 20:28: Drug form: [place] 00 PDR/INJ, PRN, Dosing Weight 121.4, kg, PRN Blood Glucose Results, Start date: 03/02/17 15:28:00 CDT, Duration: 30 day, Stop date: 04/01/17 15:27:00 CDT Dextrose 2016-0 No 12.5 gm, Memor ia 50% Syringe 03-02 25 mL, l 20:28: Route: [place] IVP, Drug Form: INJ, Dosing Weight 121.4, kg, PRN, PRN Blood Glucose Results, Start date: 03/02/17 15:28:00 CDT, Duration: 30 day, Stop date: 04/01/17 15:27:00 CDT Vancomycin 2017-0 No 2000 mg: Me moria 03-02 infuse l 19:00: over 2.5 [place] 00 hours Vancomycin 2017-0 No 2000 mg: Me moria 03-02 infuse l 19:00: over 2.5 [place] 00 hours Rocaltrol 2016-0 No Notes: Memori a 9-24 (Same As: l 16:00: Rocaltrol) [place] Vitamin D3 No Notes: Memor ia 03-02 Same as : l 16:00: Vitamin D3 [place] 00 Rocaltrol No Notes: Memori a 24 (Same As: l 16:00: Rocaltrol) [place] Vitamin D3 No Notes: Memor ia 03-02 Same as : l 16:00: Vitamin D3 [place] Docusate No Notes: Memoria 24 (Same as: l 14:00: Colace) [place] POLYETHYLEN No Notes: Vince yasmany E GLYCOL 03-02 Dissolve l 3350 14:00: in 8 oz of [place] 00 water or juice. (Same as: Miralax) Cholecalcif No Notes: Vince yamsany jacobo 2000 03-02 (Same as: l UNT Oral 14:00: Vitamin Alli n Tablet 00 D3) Calcitriol No Notes: Memor ia 03-02 (Same As: l 14:00: Rocaltrol) [place] Docusate No Notes: Memoria 24 (Same as: l 14:00: Colace) [place] POLYETHYLEN No Notes: Vince yasmany E GLYCOL 03-02 Dissolve l 3350 14:00: in 8 oz of [place] 00 water or juice. (Same as: Miralax) Cholecalcif No Notes: Vince yasmany jacobo 2000 03-02 (Same as: l UNT Oral 14:00: Vitamin Alli n Tablet 00 D3) Calcitriol No Notes: Memor ia 03-02 (Same As: l 14:00: Rocaltrol) [place] 00 D5W 1,000 No 1,000 mL, Mem oria mL 03-02 Rate: l 11:33: 1,000 [place] 00 ml/hr, Infuse over: 1 hr, Route: IV, Dosing Weight 121 kg, Total Volume: 1,000, Start date: 03/02/17 6:33:00 CDT, Duration: 1 doses or times, Stop date: 03/02/17 7:32:00 CDT D5W 1,000 No 1,000 mL, Mem oria mL 03-02 Rate: l 11:33: 1,000 [place] 00 ml/hr, Infuse over: 1 hr, Route: IV, Dosing Weight 121 kg, Total Volume: 1,000, Start date: 03/02/17 6:33:00 CDT, Duration: 1 doses or times, Stop date: 03/02/17 7:32:00 CDT Insulin 2017-0 No 60 units) Vince yasmany regular 03-02 WASTE: F/P l 10:48: - Black; E [place] [employer] Trash Bin Stable for 28 days at room temperatur e Expires in days from ____Date Glucagon 2017-0 No 1 mg, Memoria 03-02 Route: IM, l 10:48: Drug form: [place] 00 PDR/INJ, PRN, Dosing Weight 121, kg, PRN Blood Glucose Results, Start date: 03/02/17 5:48:00 CDT, Duration: 30 day, Stop date: 04/01/17 5:47:00 CDT Dextrose 2017-0 No 25 gm, 50 Vince yasmany 50% Syringe 9-24 mL, Route: l 10:48: IVP, Drug Form: INJ, Dosing Weight 121, kg, PRN, PRN Blood Glucose Results, Start date: 03/02/17 5:48:00 CDT, Duration: 30 day, Stop date: 04/01/17 5:47:00 CDT Insulin 2017-0 No 60 units) Vince yasmany regular 03-02 WASTE: F/P l 10:48: - Black; E [place] [employer] Trash Bin Stable for 28 days at room temperatur e Expires in days from ____Date Glucagon 2017-0 No 1 mg, Memoria 03-02 Route: IM, l 10:48: Drug form: [place] 00 PDR/INJ, PRN, Dosing Weight 121, kg, PRN Blood Glucose Results, Start date: 03/02/17 5:48:00 CDT, Duration: 30 day, Stop date: 04/01/17 5:47:00 CDT Dextrose 2017-0 No 25 gm, 50 Vince yasmany 50% Syringe 9-24 mL, Route: l 10:48: IVP, Drug Form: INJ, Dosing Weight 121, kg, PRN, PRN Blood Glucose Results, Start date: 03/02/17 5:48:00 CDT, Duration: 30 day, Stop date: 04/01/17 5:47:00 CDT Norepinephr 2016- No Notes: Not Memoria ine 9-24 for direct l 08:00: administra [place] 00 tion - DILUTE. Protect from light. (Same as:Levophe d). Administer by either central venous catheter or peripheral ly-inserte d central catheter (PICC) line. Norepinephr No Notes: Not Memoria ine 9-24 for direct l 08:00: administra [place] 00 tion - DILUTE. Protect from light. (Same as:Levophe d). Administer by either central venous catheter or peripheral ly-inserte d central catheter (PICC) line. D5W 1,000 No 1,000 mL, Mem oria mL 03-02 Rate: 300 l 06:14: ml/hr, [place] 00 Infuse over: 3.3 hr, Route: IV, Dosing Weight 121 kg, Total Volume: 1,000, Start date: 03/02/17 1:14:00 CDT, Stop date: 03/04/17 1:13:00 CDT D5W 1,000 No 1,000 mL, Mem oria mL 03-02 Rate: 300 l 06:14: ml/hr, [place] 00 Infuse over: 3.3 hr, Route: IV, Dosing Weight 121 kg, Total Volume: 1,000, Start date: 03/02/17 1:14:00 CDT, Stop date: 03/04/17 1:13:00 CDT desmopressi No Notes: Vince yasmany n 03-02 (Same As: l 05:43: DDAVP) [place] 00 MEDICATION WASTE Product Size: 4 microgram Product Wasted: ___ microgram desmopressi No Notes: Vince yasmany n 03-02 (Same As: l 05:43: DDAVP) [place] 00 MEDICATION WASTE Product Size: 4 microgram Product Wasted: ___ microgram Calcium No Notes: Memoria Gluconate 03-02 WASTE: F/P l 05:35: - Sink; E [place] 00 - [facility] Trash Bin Calcium No Notes: [facility] Gluconate 03-02 WASTE: F/P l 05:35: - Sink; E [place] - [facility] Trash Bin D5W 1,000 No 1,000 mL, Mem oria mL 24 Rate: l 05:34: 1,000 [place] 00 ml/hr, Infuse over: 1 hr, Route: IV, Dosing Weight 121 kg, Total Volume: 1,000, Start date: 03/02/17 0:34:00 CDT, Duration: 1 doses or times, Stop date: 03/02/17 1:33:00 CDT D5W 1,000 No 1,000 mL, Mem oria mL 24 Rate: l 05:34: 1,000 [place] 00 ml/hr, Infuse over: 1 hr, Route: IV, Dosing Weight 121 kg, Total Volume: 1,000, Start date: 03/02/17 0:34:00 CDT, Duration: 1 doses or times, Stop date: 03/02/17 1:33:00 CDT ocular No Notes: Memoria lubricant 03-02 (Same as: l 05:00: Lacri-Lube [place] 00 , Duratears Naturale, Artificial Tears, and Tears Again ) ocular No Notes: Memoria lubricant -24 (Same as: l 05:00: Lacri-Lube [place] 00 , Duratears Naturale, Artificial Tears, and Tears Again ) chlorhexidi No Notes: Vince yasmany ne 03-02 (Same As: l gluconate 02:00: Peridex) Herm shira 1.2 MG/ML 00 Mouthwash Simvastatin No Notes: Vince yasmany 24 (Same as: l 02:00: Zocor) [place] 00 Saline No Notes: Memoria Flush 0.9% 03-02 (Same as: l 02:00: BD [place] 00 Posiflush) chlorhexidi No Notes: Vince yasmany ne 03-02 (Same As: l gluconate 02:00: Peridex) Herm shira 1.2 MG/ML 00 Mouthwash Simvastatin No Notes: Vince yasmany 03-02 (Same as: l 02:00: Zocor) Casey Saline No Notes: Memoria Flush 0.9% 03-02 (Same as: l 02:00: BD [place] Posiflush) Famotidine No Notes: Memor ia 03-02 (Same as: l 00:00: Pepcid) [place] 00 Can be dilute in 5-10cc NS IVP: Slow IV push over at least 2 minutes. Rocephin No Notes: Memoria 03-02 (Same As: l 00:00: Rocephin). [place] 00 Use with 100 mL NS and infuse over 30 min MEDICATION WASTE Product Size: 1000 mg Product Wasted: 0 mg Famotidine No Notes: Memor ia 03-02 (Same as: l 00:00: Pepcid) [place] 00 Can be dilute in 5-10cc NS IVP: Slow IV push over at least 2 minutes. Rocephin No Notes: Memoria 03-02 (Same As: l 00:00: Rocephin). [place] 00 Use with 100 mL NS and infuse over 30 min MEDICATION WASTE Product Size: 1000 mg Product Wasted: 0 mg Glucagon No 1 mg, Memoria 03-01 Route: IV, l 23:57: Drug form: [place] 00 PDR/INJ, ONCE, Dosing Weight 121, kg, Start date: 03/01/17 18:57:00 CDT, Stop date: 03/01/17 18:57:00 CDT Glucagon 0 No 1 mg, Memoria 03-01 Route: IV, l 23:57: Drug form: [place] 00 PDR/INJ, ONCE, Dosing Weight 121, kg, Start date: 03/01/17 18:57:00 CDT, Stop date: 03/01/17 18:57:00 CDT Vancomycin 0 No 2000 mg: Me moria 03-01 infuse l 23:54: over 2.5 [place] 00 hours MEDICATION WASTE Product Size: 1000 mg Product Wasted: ___ mg Vancomycin 2016-0 No 2001 mg: Me moria 9-23 infuse l 23:54: over 2.5 [place] 00 hours MEDICATION WASTE Product Size: 1000 mg Product Wasted: ___ mg Calcium 2016- No 1,000 mL, Mem[facility] ia Chloride 9-23 1,000 l 0.0014 23:50: ml/hr, [place] MEQ/ML / 00 Infuse Potassium Over: 1 Chloride hr, Route: 0.004 IV, 1,000, MEQ/ML / Drug form: Sodium INJ, ONCE, Chloride Priority: 0.103 STAT, MEQ/ML / Dosing Sodium Weight 121 Lactate kg, Start 0.028 date: MEQ/ML 03/01/17 Injectable 18:50:00 Solution CDT, Duration: 1 doses or times, Stop date: 03/01/17 18:50:00 CDT Calcium No 1,000 mL, [facility] Chloride 9-23 1,000 l 0.0014 23:50: ml/hr, [place] MEQ/ML / 00 Infuse Potassium Over: 1 Chloride hr, Route: 0.004 IV, 1,000, MEQ/ML / Drug form: Sodium INJ, ONCE, Chloride Priority: 0.103 STAT, MEQ/ML / Dosing Sodium Weight 121 Lactate kg, Start 0.028 date: MEQ/ML 03/01/17 Injectable 18:50:00 Solution CDT, Duration: 1 doses or times, Stop date: 03/01/17 18:50:00 CDT Fentanyl No Notes: [facility] 9-23 (Same as: l 23:44: Sublimaze) [place] 00 Preservati ve free. Fentanyl No Notes: [facility] 9-23 (Same as: l 23:44: Sublimaze) [place] 00 Preservati ve free. Fentanyl No 1,000 [facility] 9-23 microgram, l 23:43: 20 mL, [place] 00 Rate: Titrate, Start Dose: 50 microgram/ hr, Titration: 25 microgram/ hour every 15 minutes, Goal(s): RASS -1, Max Dose: 300 microgram/ hr, Route: IV, Dosing Weight 121 kg, Total Volume: 20, Start date: 03/01/17 18:43:00 CDT, Dura... Fentanyl No 1,000 [facility] 9-23 microgram, l 23:43: 20 mL, [place] 00 Rate: Titrate, Start Dose: 50 microgram/ hr, Titration: 25 microgram/ hour every 15 minutes, Goal(s): RASS -1, Max Dose: 300 microgram/ hr, Route: IV, Dosing Weight 121 kg, Total Volume: 20, Start date: 03/01/17 18:43:00 CDT, Dura... NS (Bolus) No 1,000 mL, Me moria IV 03-01 1,000 l 23:36: ml/hr, [place] 00 Infuse Over: 1 hr, Route: IV, ONCE, Priority: STAT, Dosing Weight 121 kg, Start date: 03/01/17 18:36:00 CDT, Duration: 1 doses or times, Stop date: 03/01/17 18:36:00 CDT NS (Bolus) No 1,000 mL, Me moria IV 03-01 1,000 l 23:36: ml/hr, [place] 00 Infuse Over: 1 hr, Route: IV, ONCE, Priority: STAT, Dosing Weight 121 kg, Start date: 03/01/17 18:36:00 CDT, Duration: 1 doses or times, Stop date: 03/01/17 18:36:00 CDT chlorhexidi No Notes: Vince yasmany ne 03-01 (Same As: l gluconate 23:22: Peridex) [facility] shira 1.2 MG/ML 00 Mouthwash chlorhexidi No Notes: Vince yasmany ne 03-01 (Same As: l gluconate 23:22: Peridex) [facility] shira 1.2 MG/ML 00 Mouthwash Fentanyl No Notes: [facility] - (Same as: l 23:09: Sublimaze) [place] 00 Preservati ve free. Fentanyl No Notes: [facility] 9-23 (Same as: l 23:09: Sublimaze) [place] 00 Preservati ve free. NS (Bolus) No 1,000 mL, Me moria IV 923 1,000 l 23:06: ml/hr, [place] 00 Infuse Over: 1 hr, Route: IV, 1,000, Drug form: INJ, ONCE, Priority: STAT, Dosing Weight 121 kg, Start date: 03/01/17 18:06:00 CDT, Duration: 1 doses or times, Stop date: 03/01/17 18:06:00 CDT Ketamine No Notes: [facility] 03-01 Total l 23:06: Concentrat [place] 00 ion = 1mg/ml Total Volume = 100ml Infusion Rate= Begin Infusion at an initial rate of 0.1mg/kg/h r to a Maximum Rate of 0.25mg/kg/ hr Please place a Med Request 2 hours before the next dose is needed. NS (Bolus) No 1,000 mL, Me moria IV 03-01 1,000 l 23:06: ml/hr, Infuse Over: 1 hr, Route: IV, 1,000, Drug form: INJ, ONCE, Priority: STAT, Dosing Weight 121 kg, Start date: 03/01/17 18:06:00 CDT, Duration: 1 doses or times, Stop date: 03/01/17 18:06:00 CDT Ketamine No Notes: [facility] 03-01 Total l 23:06: Concentrat [place] 00 ion = 1mg/ml Total Volume = 100ml Infusion Rate= Begin Infusion at an initial rate of 0.1mg/kg/h r to a Maximum Rate of 0.25mg/kg/ hr Please place a Med Request 2 hours before the next dose is needed. sodium No Notes: [facility] bicarbonate 03-01 (sodium l 8.4% 22:21: bicarb [place] 00 8.4% (1 mEq/ml) 50 ml syringe) sodium No Notes: [facility] bicarbonate 03-01 (sodium l 8.4% 22:21: bicarb [place] 00 8.4% (1 mEq/ml) 50 ml syringe) Versed No Notes: [facility] 03-01 (Same as: l 22:20: Versed) [place] 00 MEDICATION WASTE Product Size: 2 mg Product Wasted: ___ mg Versed No Notes: [facility] 03-01 (Same as: l 22:20: Versed) [place] 00 MEDICATION WASTE Product Size: 2 mg Product Wasted: ___ mg Fentanyl No Notes: [facility] 03-01 (Same as: l 22:19: Sublimaze) [place] Preservati ve free. Fentanyl No Notes: [facility] 9-23 (Same as: l 22:19: Sublimaze) [place] Preservati ve free. Etomidate 2017 No 67 kg, Memor ia 9-23 Start l 22:17: date: 03/01/17 17:17:00 CDT, Stop date: 03/01/17 17:17:00 CDT, Pediatric Dosing; for intubation Atropine No 1 mg, 10 Memor ia 9-23 mL, Route: l 22:17: IVP, Drug form: INJ, ONCE, Dosing Weight 121, kg, Start date: 03/01/17 17:17:00 CDT, Stop date: 03/01/17 17:17:00 CDT Etomidate No 67 kg, [facility] ia 9-23 Start l 22:17: date: 03/01/17 17:17:00 CDT, Stop date: 03/01/17 17:17:00 CDT, Pediatric Dosing; for intubation Atropine No 1 mg, 10 [facility] ia 9-23 mL, Route: l 22:17: IVP, Drug form: INJ, ONCE, Dosing Weight 121, kg, Start date: 03/01/17 17:17:00 CDT, Stop date: 03/01/17 17:17:00 CDT Famotidine No Notes: [facility] - (Same as: l 21:44: Pepcid) [place] 00 Can be dilute in 5-10cc NS IVP: Slow IV push over at least 2 minutes. Benadryl No Notes: [facility] - (Same as: l 21:44: Benadryl) [place] 00 Famotidine 0 No Notes: [facility] ia -23 (Same as: l 21:44: Pepcid) [place] 00 Can be dilute in 5-10cc NS IVP: Slow IV push over at least 2 minutes. Benadryl No Notes: [facility] - (Same as: l 21:44: Benadryl) [place] 00 Amlodipine 0 No 1 cap, PO, M emoria 2.5 MG / 03-01 Daily, # l Benazepril 21:24: 30 cap, 0 He rmann hydrochlori 00 Refill(s) de 10 MG Oral Capsule minoxidil No 10 mg = 1 Mem oria 10 mg oral 03-01 tab, PO, l tablet 21:24: BID, # 60 Alli n 00 tab, 0 Refill(s) Hydralazine No 50 mg = 1 M emoria Hydrochlori 03-01 tab, PO, l de 50 MG 21:24: TID, # 90 Herm shira Oral Tablet 00 tab, 3 Refill(s) Furosemide No 40 mg = 1 Me moria 40 MG Oral 03-01 tab, PO, l Tablet 21:24: Daily, # [place] 00 30 tab, 0 Refill(s) doxazosin 4 No 4 mg = 1 Me moria mg oral 03-01 tab, PO, l tablet 21:24: Daily, # [place] 00 30 tab, 0 Refill(s) Triamcinolo No 1 appl, Mem oria ne 03-01 TOP, BID, l Acetonide 1 21:24: PRN Apply H ermann MG/ML 00 to Topical affected Cream area(s), # 60 gm, 0 Refill(s) Acetaminoph No 1 tab, PO, Memoria en 325 MG / 03-01 Q4H, PRN l Chlorphenir 21:24: for Alli n amine 00 allergy Maleate 2 symptoms, MG Oral # 12 tab, Tablet 0 [Coricidin Refill(s) HBP Cold & Flu] simvastatin No 5 mg = 1 Me moria 5 mg oral 03-01 tab, PO, l tablet 21:24: Bedtime, # Damari nn 00 30 tab, 0 Refill(s) cholecalcif No 2,000 Memor ia jacobo 2000 03-01 IntlUnit = l intl units 21:24: 1 cap, PO, H ermann oral 00 Daily, 0 capsule Refill(s) repaglinide Yes 0.5 mg = 1 [facility] 0.5 mg oral 03-01 tab, PO, l tablet 21:24: TID-Before Damari nn 00 Meals, # 270 tab, 5 Refill(s) calcitriol No 0.25 [facility] 0.25 mcg 03-01 microgram l oral 21:24: = 1 cap, [place] capsule 00 PO, Daily, # 30 cap, 0 Refill(s) Atenolol 50 No 50 mg = 1 M emoria MG Oral 03-01 tab, PO, l Tablet 21:24: BID, 0 [place] 00 Refill(s) pantoprazol No 40 mg, PO, Memoria e 03-01 Daily, # l 21:24: 30 tab, 0 [place] 00 Refill(s) Amlodipine No 1 cap, PO, M emoria 2.5 MG / 03-01 Daily, # l Benazepril 21:24: 30 cap, 0 He rmann hydrochlori 00 Refill(s) de 10 MG Oral Capsule minoxidil No 10 mg = 1 Mem oria 10 mg oral 03-01 tab, PO, l tablet 21:24: BID, # 60 Alli n 00 tab, 0 Refill(s) Hydralazine No 50 mg = 1 M emoria Hydrochlori 03-01 tab, PO, l de 50 MG 21:24: TID, # 90 Herm shira Oral Tablet 00 tab, 3 Refill(s) Furosemide No 40 mg = 1 Me moria 40 MG Oral 03-01 tab, PO, l Tablet 21:24: Daily, # [place] 00 30 tab, 0 Refill(s) doxazosin 4 No 4 mg = 1 Me moria mg oral 23 tab, PO, l tablet 21:24: Daily, # [place] 00 30 tab, 0 Refill(s) Triamcinolo No 1 appl, Mem oria ne 03-01 TOP, BID, l Acetonide 1 21:24: PRN Apply H ermann MG/ML 00 to Topical affected Cream area(s), # 60 gm, 0 Refill(s) Acetaminoph No 1 tab, PO, Memoria en 325 MG / 03-01 Q4H, PRN l Chlorphenir 21:24: for Alli n amine 00 allergy Maleate 2 symptoms, MG Oral # 12 tab, Tablet 0 [Coricidin Refill(s) HBP Cold & Flu] simvastatin No 5 mg = 1 Me moria 5 mg oral 23 tab, PO, l tablet 21:24: Bedtime, # Damari nn 00 30 tab, 0 Refill(s) cholecalcif No 2,000 Memor ia jacobo 2000 23 IntlUnit = l intl units 21:24: 1 cap, PO, H ermann oral 00 Daily, 0 capsule Refill(s) repaglinide Yes 0.5 mg = 1 [facility] 0.5 mg oral 23 tab, PO, l tablet 21:24: TID-Before Damari nn 00 Meals, # 270 tab, 5 Refill(s) calcitriol No 0.25 [facility] 0.25 mcg 9-23 microgram l oral 21:24: = 1 cap, [place] capsule 00 PO, Daily, # 30 cap, 0 Refill(s) Atenolol 50 No 50 mg = 1 M emoria MG Oral 03-01 tab, PO, l Tablet 21:24: BID, 0 [place] 00 Refill(s) pantoprazol No 40 mg, PO, Memoria e 03-01 Daily, # l 21:24: 30 tab, 0 [place] 00 Refill(s) Saline No Notes: [facility] Flush 0.9% -23 (Same as: l 20:30: BD [place] 00 Posiflush) Saline No Notes: [facility] Flush 0.9% 9-23 (Same as: l 20:30: BD [place] 00 Posiflush) atenolol Yes 50mg Q.5D Take [address] [facility] (TENORMIN) 8-13 by mouth 2 David es 50 MG 22:37: (two) Medical tablet 35 times Center daily. calcitriol Yes .25ug QD Take 0.[address] [facility] (ROCALTROL) 8-13 mcg [facility] 0.25 MCG 22:37: mouth Medical capsule 35 daily. Center cholecalcif Yes 1000U QD Take 1,[address] [facility] jacobo, 8-13 Units by [facility] vitamin D3, 22:37: mouth Medic al 1,000 unit 35 daily. Center capsule cyanocobala Yes 1000ug Inject [facility] min 8-13 1,000 mcg [facility] (VITAMIN 22:37: intramuscu Med ical B-12) 1,000 35 larly Center mcg/mL every 30 injection (thirty) days. doxazosin 2015-0 Yes 4mg QD Take [address] [facility] (CARDURA) 4 8-13 by mouth Luke s MG tablet 22:37: nightly. [facility] 35 [place] furosemide 2016-0 Yes 40mg Q.5D Take [address] (LASIX) 40 8-13 by mouth 2 David es MG tablet 22:37: (two) Medical 35 times Center daily. glipiZIDE 2015-0 Yes 10mg QD Take [address] (GLUCOTROL 8-13 by mouth [facility] XL) 10 MG 22:37: daily. Medica l 24 hr 35 Center tablet hydrALAZINE 2015-0 Yes 50mg Q.5D Take [address] [facility] (APRESOLINE 8-13 by mouth 2 Anuja kes ) 50 MG 22:37: (two) Medical tablet 35 times Center daily. minoxidil 2015-0 Yes 10mg QD Take [address] [facility] [address] (LONITEN) 8-13 by mouth [facility] 10 MG 22:37: daily. Medical tablet 35 Center pantoprazol 0 Yes 40mg QD Take [address] [facility] e 8-13 by mouth [facility] (PROTONIX) 22:37: daily. Medic al 40 MG 35 Center tablet simvastatin 0 Yes 5mg QD Take [address] (ZOCOR) 5 8-13 by mouth [facility] MG tablet 22:37: nightly. [facility] 35 [place] triamcinolo 2016-0 Yes Q.5D Apply [facility] topically [facility] (KENALOG) 22:37: 2 (two) Medic al 0.1 % 35 times Center topical daily to cream affected area. . valsartan 2015-0 Yes 320mg QD Take [address] [facility] [address] (DIOVAN) 8-13 mg by [facility] 320 MG 22:37: mouth Medical tablet 35 daily. [facility] Atorvastati Atorvastati Yes STRAPPER OPERATOR TAKE 1 UT n Calcium n Calcium TABLET AT [facility] 40 MG Oral 40 MG Oral BEDTIME. ans Tablet Tablet Bumetanide Bumetanide Yes STRAPPER OPERATOR Take2 UT 1 MG Oral 1 MG Oral tablets PO [facility] Tablet Tablet Q AM and 1 ans tablet PO Q PM Carvedilol Carvedilol Yes STRAPPER OPERATOR Take 3 U T 12.5 MG 12.5 MG tabs PO Phys[facility] i Oral Tablet Oral Tablet BiD with ans meals Vitamin D-3 Vitamin D-3 Yes STRAPPER OPERATOR 1 tab po UT 25 MCG 25 MCG qd [facility] (1000 UT) (1000 UT) ans Oral Oral Capsule Capsule hydrALAZINE hydrALAZINE Yes STRAPPER OPERATOR Q0.3333D TAKE 1 UT HCl - 25 MG HCl - 25 MG TABLET 3 [facility] Oral Tablet Oral Tablet TIMES ans DAILY. NIFEdipine NIFEdipine Yes STRAPPER OPERATOR 1 QD TAKE 1 U T ER 90 MG ER 90 MG TABLET Phys[facility] ci Oral Tablet Oral Tablet DAILY. ans Extended Extended Release 24 Release 24 Hour Hour Tamsulosin Tamsulosin Yes STRAPPER OPERATOR 1 QD TAKE 1 U T HCl - 0.4 HCl - 0.4 CAPSULE Ph [facility] MG Oral MG Oral DAILY ans Capsule Capsule Glimepiride Glimepiride Yes STRAPPER OPERATOR QD TAKE 1 UT 2 MG Oral 2 MG Oral TABLET Phy [facility]ici Tablet Tablet DAILY ans DIRECTED. Cholesterol Cholesterol Yes STRAPPER OPERATOR U T Formula Formula [facility] TABS TABS ans Immunizations Ordered Immunization Filled Immunization Date Status Commen ts Source Name Name Pneumococcal 2021-12-12 Completed [facility] 20-valent Conjugate 00:00:00 [facility] melania Vaccine Zoster Vaccine 2021-10-10 Completed [facility] Recombinant 00:00:00 [facility] MODERNA COVID-19 MRNA 2021-05-09 Completed [facility] VACCINATION 00:00:00 [facility] FLUZONE HIGH-DOSE PF 2021-03-27 Completed Meth odist 00:00:00 [facility] PFIZER COVID-19 MRNA 2020-07-10 Completed [facility] VACCINATION 00:00:00 [facility] PFIZER COVID-19 MRNA 2020-06-17 Completed [facility] VACCINATION 00:00:00 Hospital FLUZONE HIGH-DOSE PF 2020-04-17 Completed [facility] 00:00:00 Hospital FLUZONE HIGH-DOSE PF 2019-05-12 Completed [facility] 00:00:00 Hospital FLUZONE HIGH-DOSE PF 2018-03-24 Completed [facility] 00:00:00 Hospital Td 2017-09-23 Completed [facility] 00:00:00 [facility] Influenza (IM) 2017-03-26 Completed [facility] Preservative Free 00:00:00 Hospita l influenza virus 2017-03-06 Completed [facility] vaccine, inactivated 16:45:00 [facility] influenza virus 2017-03-06 Completed [facility] vaccine, inactivated 16:45:00 [facility] shira FLUZONE HIGH-DOSE PF 2016-04-22 Completed [facility] 00:00:00 Hospital Pneumococcal 2016-04-22 Completed [facility] Conjugate 13-Valent 00:00:00 Hospi melania FLUZONE HIGH-DOSE PF 2015-03-14 Completed [facility] 00:00:00 Hospital FLUZONE HIGH-DOSE PF 2014-03-29 Completed [facility] 00:00:00 Hospital FLUZONE HIGH-DOSE PF 2012-04-08 Completed [facility] 00:00:00 Hospital Zoster 2011-05-08 Completed [facility] 00:00:[facility] FLUZONE HIGH-DOSE PF 2011-03-29 Completed Meth odist 00:00:00 [facility] FLUZONE QUAD 2009-03-17 Completed [facility] 00:00:00 [facility] FLUZONE QUAD 2008-03-31 Completed [facility] 00:00:00 [facility] Pneumococcal 2008-03-31 Completed [facility] Polysaccharide 00:00:00 [facility] TD (ADULT), 5 LF 2003-07-19 Completed [facility] TETANUS TOXOID, 00:00:00 Hospital PRESERVATIVE FREE, ABSORBED Vital Signs Vital Name Observation Time Observation Value Comments Source Systolic blood 2021-04-05 129 mm[Hg] [facility] pressure 18:24:00 Diastolic blood 2021-04-05 68 mm[Hg] [facility] pressure 18:24:00 Heart rate 2021-04-05 73 /min [facility] 18:24:00 Body temperature 2021-04-05 36.33 [facility] 18:24:00 Body height 2021-04-05 172.7 cm [facility] 18:24:00 Body weight 2021-04-05 107.956 kg [facility] 18:24:00 BMI 2021-04-05 36.19 kg/m2 [facility] 18:24:00 Systolic blood 2021-12-12 124 mm[Hg] [facility] pressure 15:46:00 [facility] Diastolic blood 2021-12-12 64 mm[Hg] [facility] pressure 15:46:00 [facility] Heart rate 2021-12-12 75 /min [facility] 15:21:00 [facility] Body height 2021-12-12 172.7 cm [facility] 15:21:00 Hospital Body weight 2021-12-12 106.505 kg [facility] 15:21:00 [facility] BMI 2021-12-12 35.70 kg/m2 [facility] 15:21:00 Hospital Oxygen saturation 2021-12-12 96 /min [facility] in Arterial blood 15:21:00 Hospital by Pulse oximetry Body temperature 2021-08-07 36.56 [facility] 20:26:00 Hospital Respiratory rate 2021-05-18 20 /min [facility] 14:15:00 Hospital Systolic blood 2020-10-05 131 mm[Hg] Location: [facility]; [facility] pressure 14:11:00 Position: Sitting Diastolic blood 2020-10-05 66 mm[Hg] Location: [facility]; [facility] pressure 14:11:00 Position: Sitting Body height 2020-10-05 68 [in_us] [facility] 14:11:00 Weight 2020-10-05 226 [lb_av] [facility] 14:11:00 Body mass index 2020-10-05 34.36 kg/m2 [facility] (BMI) [Ratio] 14:11:00 Body temperature 2020-10-05 97.3 [degF] Method: [facility] 14:11:00 Temporal Heart Rate 2020-10-05 69 /min Location: R [facility] 14:11:00 Brachial Artery; BP Systolic 2017-05-22 156 mm[Hg] Location: [facility]; [facility] 13:32:00 Position: Sitting BP Diastolic 2017-05-22 71 mm[Hg] Location: [facility]; [facility] 13:32:00 Position: Sitting Weight 2017-05-22 190 [lb_av] [facility] 13:32:00 Body Mass Index 2017-05-22 28.89 kg/m2 [facility] Calculated 13:32:00 Temperature 2017-05-22 97.9 [degF] Method: Oral [facility] 13:32:00 Heart Rate 2017-05-22 66 /min Location: R [facility] 13:32:00 Brachial Artery; BP Systolic 2017-04-10 104 mm[Hg] Location: R[facility]; [facility] 13:44:00 Position: Sitting BP Diastolic 2017-04-10 51 mm[Hg] Location: R[facility]; [facility] 13:44:00 Position: Sitting Height 2017-04-10 68 [in_us] [facility] 13:44:00 Weight 2017-04-10 191.125 [lb_av] [facility] 13:44:00 Body Mass Index 2017-04-10 29.06 kg/m2 [facility] Calculated 13:44:00 Temperature 2017-04-10 98.3 [degF] Method: Oral [facility] 13:44:00 Heart Rate 2017-04-10 65 /min Location: R [facility] 13:44:00 Brachial Artery; Respiration Rate 2017-04-10 16 /min [facility] 13:44:00 Heart Rate 2017-04-02 [facility]i n 19:30:00 Systolic (mm Hg) 2017-04-02 [facility] 19:30:00 Diastolic (mm Hg) 2017-04-02 [facility] ermann 19:30:00 Heart Rate 2017-04-02 [facility]i n 17:00:00 Systolic (mm Hg) 2017-04-02 [facility] 17:00:00 Diastolic (mm Hg) 2017-04-02 [facility] 17:00:00 Systolic (mm Hg) 2017-04-02 [facility] 16:45:00 Diastolic (mm Hg) 2017-04-02 [facility] 16:45:00 Heart Rate 2017-04-02 [facility] Alli n 16:45:00 Respitory Rate 2017-04-02 [facility] shira 16:45:00 Temperature Oral 2017-04-02 98.7 F [facility] (F) 16:45:00 Respitory Rate 2017-04-02 [facility] shira 13:30:00 Temperature Oral 2017-04-02 97.9 F [facility] (F) 13:30:00 Temperature Oral 2017-04-02 97.9 F [facility] (F) 09:51:00 Respitory Rate 2017-04-02 [facility] shira 09:51:00 Weight 2017-03-11 [facility] n 23:00:00 BMI Calculated 2017-03-04 [facility] shira 19:27:00 Weight 2017-03-04 [facility] 19:27:00 Height 2017-03-04 172.72 cm [facility] 19:27:00 Height 2017-03-03 172.72 cm [facility] 12:49:00 Height 2017-03-03 172.72 cm [facility] 09:33:00 Weight 2017-03-02 [facility] 14:12:00 BMI Calculated 2017-03-01 [facility] 22:08:00 Procedures Procedure Date / Time Performing Clinician Source Performed URIC ACID LEVEL 2021-12-12 15:57:00 Dorota Lim [facility] URINALYSIS SCREEN AND 2021-12-12 15:57:00 Dorota Lim [facility] MICROSCOPY, WITH REFLEX TO CULTURE COMPREHENSIVE METABOLIC 2021-12-12 15:57:00 Dorota Lim [facility] PANEL HEMOGLOBIN A1C 2021-12-12 15:57:00 Dorota Lim [facility] LIPID PANEL 2021-12-12 15:57:00 Dorota Lim [facility] C-PEPTIDE 2021-12-12 15:57:00 Dorota Lim [facility] CBC WITH PLATELET AND 2021-12-12 15:57:00 Dorota Lim [facility] DIFFERENTIAL THYROID STIMULATING 2021-12-12 15:57:00 Dorota Lim [facility] HORMONE T4, FREE 2021-12-12 15:57:00 Dorota Lim [facility] MICROALBUMIN / CREATININE 2021-12-12 15:57:00 Dorota Lim [facility] URINE RATIO BASIC METABOLIC PANEL 2021-08-24 18:29:00 Dorota Lim [facility] HEMOGLOBIN A1C 2021-08-07 21:01:00 Dorota Lim [facility] BASIC METABOLIC PANEL 2021-08-07 21:01:00 Dorota Lim [facility] MICROALBUMIN / CREATININE 2021-08-07 21:01:00 MekhiDorota cortes [facility] URINE RATIO SURGICAL PATHOLOGY 2021-05-18 14:15[facility] P[facility] GLUCOSE 2021-05-18 14:12:00 Abeba Mcgarry spital Soni RELEASE, CARPAL TUNNEL 2021-05-18 13:14[facility] 2021-05-18 11:58:00 Abeba Mcgarry Ho spital Soni HEMOGLOBIN A1C 2021-05-09 21:55:00 Dorota Lim [facility] CBC WITH PLATELET AND 2021-05-09 21:55:00 Dorota Lim [facility] DIFFERENTIAL COMPREHENSIVE METABOLIC 2021-05-09 21:55:00 MekhiDorota cortes [facility] PANEL URIC ACID LEVEL 2021-05-09 21:55:00 Dorota Lim [facility] XR HAND 3+ VW RIGHT 2021-04-03 22:28:46 Dorota Lim [facility] XR KNEE 4+ VW LEFT 2021-04-03 22:28:28 Dorota Lim [facility] US DUPLEX VENOUS LOWER 2021-03-27 21:16:50 Dorota Lim [facility] EXTREMITY RIGHT COMPREHENSIVE METABOLIC 2021-03-27 19:10:00 MekhiDorota cortes [facility] PANEL URINALYSIS, COMPLETE, 2021-03-27 19:10:00 Dorota Lim [facility] WITH REFLEX TO CULTURE B NATRIURETIC PEPTIDE 2021-03-27 19:10:00 MekhiDorota cortes [facility] CBC WITH PLATELET AND 2021-03-27 19:10:00 MekhiDorota cortes [facility] DIFFERENTIAL [QLH] RENAL FUNCTION 2017-05-21 00:00:00 [facility] PANEL W/EGFR [QLH] CBC (INCLUDES 2017-05-21 00:00:00 [facility] DIFF/PLT) [QLH] RENAL FUNCTION 2017-04-23 00:00:00 [facility] PANEL W/EGFR [QLH] CBC (INCLUDES 2017-04-23 00:00:00 [facility] DIFF/PLT) Plan of Care Planned Activity Planned Date Details Comments Source Future Scheduled 2022-02-08 HEPATITIS B VACCINES Met [facility] Test 07:28:13 (1 of 3 - 3-dose series) [code = HEPATITIS B VACCINES (1 of 3 - 3-dose series)] Future Scheduled 2022-02-08 COVID-19 VACCINE (4 - [facility] Test 07:28:13 Booster for Pfizer series) [code = COVID-19 VACCINE (4 - Booster for Pfizer series)] Future Scheduled 2022-02-08 [facility] 07:28:13 [code = DIABETIC FOOT EXAM] Future Scheduled 2022-02-08 [facility]INE [facility] 07:28:13 [code = INFLUENZA VACCINE] Future Scheduled 2022-02-08 DIABETES: RETINAL EYE [facility] Test 07:28:13 EXAM [code = DIABETES: RETINAL EYE EXAM] Future Scheduled 2022-02-08 COLONOSCOPY SCREENING [facility] Test 07:28:13 [code = COLONOSCOPY SCREENING] Encounters Start End Encounter Admission Attending Care Care Encounter Source Date/Time Date/Time Type Type Clinicians Facility Department ID 2021-04-05 Outpatient [facility] [id number] [place] 14:05:03 Health 2020-10-14 Outpatient [facility] [id number] [place] 04:28:45 [facility] 2018-08-04 Inpatient Heraclio LIM [facility] [id number] [facility] 11:22:00 DOROTA [facility] 2022-02-07 2022-02-07 Refill Mekhi, 1.2.840.1 [id number] [facility] 00:00:00 00:00:[id number] 3.430.2.7 Hospit a .[id number] l .8 2022-01-31 2022-01-31 Refill Mekhi, 1.2.840.1 [id number] [facility] 00:00:00 00:00:[id number] 3.430.2.7 Hospit a .3.185137 l .8 2022-01-01 2022-01-01 Refill Mekhi, 1.2.840.1 [id number] [facility] 00:00:00 00:00:[id number] 3.430.2.7 Hospit a .3.139102 l .8 2021-12-15 2021-12-15 Refill Mekhi, 1.2.840.1 [id number] 0257 Methodi 00:00:00 00:00:[address] B. 3.430.2.7 Hospit a .3.533995 l .8 2021-12-12 2021-12-12 Office Mekhi, 1.2.840.1 [id number] 1403 Methodi 10:00:00 11:06:05 Visit Dorota 00220.1.[address] B. 3.430.2.7 Hospit a .3.025164 l .8 2021-12-12 2021-12-12 Travel 1.2.840.1 1.2.442.771 0314 [id number] Methodi 00:00:00 00:00:[address] 3.430.2.7 0.2.7.3.698 Ho spita .3.310883 084.8 l .8 2021-12-12 2021-12-12 [facility] [id number] 150 Novelty 00:00:00 00:00:00 [place] [address] 2021-12-02 2021-12-02 Refill Mekhi, 1.2.840.1 [id number] 3984 Methodi 00:00:00 00:00:[address] B. 3.430.2.7 Hospit a .3.252889 l .8 2021-10-03 2021-10-03 Refill Mekhi, 1.2.840.1 [id number] 4682 Methodi 00:00:00 00:00:[address] B. 3.430.2.7 Hospit a .3.284313 l .8 2021-08-29 2021-08-29 Refill Mekhi, 1.2.840.1 [id number] 2185 Methodi 00:00:00 00:00:[address] B. 3.430.2.7 Hospit a .3.987971 l .8 2021-08-10 2021-08-10 Orders Mekhi, 1.2.840.1 [id number] 6384 Methodi 00:00:00 00:00:00 Only Dorota 85848.1.[address] B. 3.430.2.7 Hospit a .3.623755 l .8 2021-08-07 2021-08-07 Office Mekhi, 1.2.840.1 [id number] 8469 Methodi 14:15:00 15:09:06 Visit Dorota 53951.1.[address] B. 3.430.2.7 Hospit a .3.395507 l .8 2021-08-07 2021-08-07 Travel 1.2.840.1 1.2.106.794 2026 260194 Methodi 00:00:00 00:00:[address] 3.430.2.7 0.2.7.3.698 Ho spita .3.666063 084.8 l .8 2021-08-07 2021-08-07 Outpatient MEKHI, [facility] [id number] Novelty 00:00:00 00:00:00 DOROTA [address] 2021-08-04 2021-08-04 Refill Mekhi, 1.2.840.1 [id number] 3205 Methodi 00:00:00 00:00:[address] B. 3.430.2.7 Hospit a .3.206751 l .8 2021-08-02 2021-08-02 Refill Mekhi, 1.2.840.1 [id number] 0363 Methodi 00:00:00 00:00:[address] B. 3.430.2.7 Hospit a .3.727134 l .8 2021-07-10 2021-07-10 Office Zeferino, 1.2.840.1 [id number] 2100 773396 Methodi 14:15:00 14:41:36 Visit Abeba 96695.1.[address] Soni 3.430.2.7 Hospit a .3.786790 l .8 2021-07-10 2021-07-10 Outpatient ZEFERINO, [facility] 28067 91976 Novelty 00:00:00 00:00:[address] ABEBA [address] 2021-06-22 2021-06-22 Telephone Serafin, 1.2.840.1 [id number] 21 [id number] Methodi 00:00:00 00:00:[address] 3.430.2.7 Hospit a .3.439890 l .8 2021-06-10 2021-06-10 Orders Mekhi, 1.2.840.1 [id number] 038740 8653 Methodi 00:00:00 00:00:00 Only Dorota 32191.1.[address] B. 3.430.2.7 Hospit a .3.364032 l .8 2021-06-07 2021-06-07 Refill Mekhi, 1.2.840.1 [id number] 952482 0610 Methodi 00:00:00 00:00:[address] B. 3.430.2.7 Hospit a .3.467834 l .8 2021-06-05 2021-06-05 Refill Mekhi, 1.2.840.1 [id number] [id number] 6888 Methodi 00:00:00 00:00:[address] B. 3.430.2.7 Hospit a .3.715166 l .8 2021-06-04 2021-06-04 Refill Mekhi, 1.2.840.1 [id number] 5715 Methodi 00:00:00 00:00:[address] B. 3.430.2.7 Hospit a .3.494190 l .8 2021-05-29 2021-05-29 Office Zeferino, 1.2.840.1 [id number] 2100 502617 Methodi 11:15:00 11:28:21 Visit Abeba 11822.1.[address] Soni 3.430.2.7 Hospit a .3.200704 l .8 2021-05-29 2021-05-29 Outpatient [facility] [id number] Novelty 00:00:00 00:00:00 ABEBA [address] 2021-05-23 2021-05-23 Telephone Neptali, 1.2.840.1 [id number] 2100 142650 Methodi 00:00:00 00:00:[address] 3.430.2.7 Hospit a .3.399106 l .8 2021-05-18 2021-05-18 [facility], 1.2.840.1 [id number] 176 [id number] Methodi 05:43:00 09:24:00 Encounter Abeba 11342.1.[address] Soni 3.430.2.7 Hospit a .3.356638 l .8 2021-05-18 2021-05-18 Surgery [facility], 1.2.840.1 [id number] 2100 [id number] Methodi 07:15:00 08:25:[address] Soni 3.430.2.7 Hospit a .3.521403 l .8 2021-05-18 2021-05-18 Anesthesia Brann, 1.2.840.1 [id number] 839 [id number] Methodi 07:14:00 07:55:00 Event Dez 63241.1.[address] Billie 3.430.2.7 Hospit a .3.949175 l .8 2021-05-18 2021-05-18 Travel 1.2.840.1 1.2.183.367 4243 535070 Methodi 00:00:00 00:00:[address] 3.430.2.7 0.2.7.3.698 Ho spita .3.236624 084.8 l .8 2021-05-18 2021-05-18 Outpatient [facility] 021 89769 40551 Novelty 00:00:00 00:00:00 ABEBA [address] 2021-05-17 2021-05-17 Telephone Zeferino, 1.2.840.1 [id number] 21 [id number] Methodi 00:00:00 00:00:[address] Soni 3.430.2.7 Hospit a .3.398322 l .8 2021-05-12 2021-05-12 Telephone Mekhi, 1.2.840.1 [id number] 2100 546285 Methodi 00:00:00 00:00:[address] B. 3.430.2.7 Hospit a .3.209639 l .8 2021-05-09 2021-05-09 Office Mekhi, 1.2.840.1 [id number] 775282 4089 Methodi 15:00:00 15:57:43 Visit Dorota 09862.1.[address] B. 3.430.2.7 Hospit a .3.682795 l .8 2021-05-09 2021-05-09 Travel 1.2.840.1 1.2.555.535 6703 447314 Methodi 00:00:00 00:00:[address] 3.430.2.7 0.2.7.3.698 Ho spita .3.737561 084.8 l .8 2021-05-09 2021-05-09 Outpatient MEKHI, [facility] [id number] 851 Novelty 00:00:00 00:00:00 DOROTA [address] 2021-05-07 2021-05-07 Orders Mekhi, 1.2.840.1 [id number] 7140 Methodi 00:00:00 00:00:00 Only Dorota 83825.1.[address] B. 3.430.2.7 Hospit a .3.530858 l .8 2021-04-06 2021-04-06 Refill Mekhi, 1.2.840.1 [id number] 2748 Methodi 00:00:00 00:00:[address] B. 3.430.2.7 Hospit a .3.934962 l .8 2021-04-05 2021-04-05 Office Sunny Colón 1.2.840.114 11 [id number] [place] 13:11:10 14:05:32 Visit RYLAND 350.1.13.58 H [facility] MEDICAL 9.2.7.2.686 [facility] [id number] 7 2021-04-04 2021-04-04 Telephone Yamilex [place] 1.2.840.1 14 [id number] [place] 00:00:00 00:00:00 Yamilex [place] 350.1.13.58 Health MEDICAL 9.2.7.2.686 CENTER [id number] 0 2021-04-04 2021-04-04 Telephone Mony Perez [place] 1.2.840.1 14 [id number] [place] 00:00:00 00:00:00 Mony Perez 350.1.13.58 Health MEDICAL 9.2.7.2.686 [place] [id number] 0 2021-04-03 2021-04-03 [facility], 1.2.840.1 [id number] 84423 16831 Methodi 16:49:00 23:59:00 Encounter Dorota 47537.1.[address] B. 3.430.2.7 Hospit a .3.644419 l .8 2021-04-03 2021-04-03 [facility] 1.2.840.1 [id number] 59124 00650 Methodi 16:45:00 16:48:00 Encounter Dorota 92032.1.[address] B. 3.430.2.7 Hospit a .3.862743 l .8 2021-04-03 2021-04-03 [facility], 1.2.840.1 [id number] 046234 6453 Methodi 15:30:00 15:54:02 Visit Dorota 75275.1.[address] B. 3.430.2.7 Hospit a .3.318641 l .8 2021-04-03 2021-04-03 Travel 1.2.840.1 1.2.059.706 2231 391658 Methodi 00:00:00 00:00:[address] 3.430.2.7 0.2.7.3.698 Ho spita .3.141909 084.8 l .8 2021-04-03 2021-04-03 Outpatient [facility], [facility] [id number] Novelty 00:00:00 00:00:00 DOROTA [address] 2021-04-03 2021-04-03 Outpatient MEKHI, [facility] [id number] Novelty 00:00:00 00:00:00 DOROTA [address] 2021-04-03 2021-04-03 Outpatient [facility], [facility] [id number] 575 Novelty 00:00:00 00:00:00 DOROTA [address] 2021-04-02 2021-04-02 Telephone Kenya Lieberman 1.2.840.1 [id number] Methodi 00:00:00 00:00:[address] 3.430.2.7 Hospit a .3.344553 l .8 2021-04-02 2021-04-02 Orders Serafin 1.2.840.1 [id number] 2099 224522 Methodi 00:00:00 00:00:00 Only Vivian 39060.1.[address] 3.430.2.7 Hospit a .3.848852 l .8 2021-04-02 2021-04-02 Telephone Mekhi 1.2.840.1 [id number] 2099 950562 Methodi 00:00:00 00:00:[address] B. 3.430.2.7 Hospit a .3.909127 l .8 2021-03-29 2021-03-29 Office Zeferino 1.2.840.1 [id number] 2099 458590 Methodi 15:00:00 15:15:00 Visit Abeba 19599.1.[address] Soni 3.430.2.7 Hospit a .3.602701 l .8 2021-03-29 2021-03-29 Orders [facility], 1.2.840.1 [id number] 3929 Methodi 00:00:00 00:00:00 Only Dorota 02774.1.[address] B. 3.430.2.7 Hospit a .3.812233 l .8 2021-03-29 2021-03-29 Outpatient [facility] [id number] Novelty 00:00:00 00:00:[address] 2021-03-27 2021-03-27 [facility], 1.2.840.1 [id number] 90440 20702 Methodi 15:00:00 23:59:00 Encounter Dorota 34426.1.[address] B. 3.430.2.7 Hospit a .3.108957 l .8 2021-03-27 2021-03-27 Office [facility], 1.2.840.1 [id number] 6252 Methodi 13:00:00 14:14:47 Visit Dorota 77185.1.[address] B. 3.430.2.7 Hospit a .3.421784 l .8 2021-03-27 2021-03-27 Travel 1.2.840.1 1.2.739.615 1416 546969 Methodi 00:00:00 00:00:[address] 3.430.2.7 0.2.7.3.698 Ho spita .3.202235 084.8 l .8 2021-03-27 2021-03-27 Outpatient [facility], [facility] [id number] 910 Novelty 00:00:00 00:00:00 DOROTA [address] 2021-03-27 2021-03-27 Outpatient [facility], [facility] [id number] 031 Novelty 00:00:00 00:00:00 DOROTA [address] 2021-01-10 2021-01-10 Outpatient [facility], [facility] [id number] 776 Novelty 00:00:00 00:00:00 DOROTA [address] 2021-01-10 2021-01-10 Outpatient MEKHI, [facility] [id number] Novelty 00:00:00 00:00:00 DOROTA Panda Meth solo st 2021-01-04 2021-01-04 Outpatient [facility] [id number] Novelty 00:00:00 00:00:[address] 2020-12-20 2020-12-20 Outpatient BRITTNI, [facility] [id number] [id number] Novelty 00:00:00 00:00:00 DANIELA 787 Method i 2020-12-20 2020-12-20 Outpatient BRITTNI, [facility] 84565 [id number] Novelty 00:00:00 00:00:[address]ANIELA [address] 2020-11-16 2020-11-16 Telephone DANNIE Gomez 1.2.605.841 7849 81312 00:00:00 00:00:00 April VELOZ 350.1.13.58 MEDICAL 9.2.7.2.686 BUILDING [id number] 5 2020-11-16 2020-11-16 Telephone April Gomez 1.2.840.11 4 [id number] [place] 00:00:00 00:00:00 April Gomez 350.1.13.58 Health MEDICAL 9.2.7.2.686 BUILDING [id number] 5 2020-10-05 2020-10-05 [facility] 91242 [place] 14:00:00 14:00:00 t; SUNNY COLÓN M.D. lty - P hysici Ryland MIMS M.D. 2020-09-20 2020-09-20 Outpatient Schiffman_Z [facility] 450 124-202 Novelty 08:03:00 08:03:00 10810 [facility] 2020-09-18 2020-09-18 Outpatient Schiffman_Z [facility] U 450 124-202 Novelty 11:38:00 11:38:00 89817 [facility] 2020-09-18 2020-09-18 Outpatient Mary, U [facility] 1890 7890-2 00:00:00 00:00:00 Gomez [id number] 958C30 2020-09-14 2020-09-14 Caraharesh DANNIE COLÓN UTP [id number] [place] 13:00:00 13:00:00 t; SUNNY COLÓN M.D. P hysici BRUCE, ans M.D. 2020-09-12 2020-09-12 Outpatient Schiffman_Z HMU HMU 450 124-202 Novelty 02:58:00 02:58:00 78358 [facility] 2020-09-12 2020-09-12 Outpatient Schiffman_Z HMU HMU 450 124-202 Novelty 02:58:00 02:58:00 78459 [facility] 2020-09-07 2020-09-07 Outpatient Schiffman_Z HMU HMU 450 124-202 Novelty 03:55:00 03:55:00 53172 [facility] 2020-09-07 2020-09-07 Outpatient Mary, U U 17e9 2002-07 00:00:00 00:00:00 Gomez [id number] 958C30 2020-09-07 2020-09-07 Outpatient Mary, U U 17e9 22be2 00:00:00 00:00:00 Gomez [id number] 958C30 2020-09-06 2020-09-06 Outpatient Schiffrenato_Z [facility] U 450 124-202 Novelty 09:44:00 09:44:00 88712 [facility] 2020-08-28 2020-08-28 Outpatient Schiffman_Z HMU U 450 124-202 Novelty 11:51:00 11:51:00 78646 [facility] 2020-08-10 2020-08-10 DANNIE Cortez UTP [id number] [place] 13:00:00 13:00:00 t; SUNNY COLÓN M.D. P damon Matamoros M.D. 2020-07-10 2020-07-10 Outpatient [facility] [id number] Novelty 00:00:00 00:00:[address] 2020-07-05 2020-07-05 Outpatient BRITTNI, [facility] [id number] Novelty 00:00:00 00:00:00 DANIELA [address] 2020-07-05 2020-07-05 Outpatient BRITTNI, [facility] [id number] Novelty 00:00:00 00:00:00 DANIELA [address] 2020-06-17 2020-06-17 Outpatient CAMPBELL, [facility] [id number] Novelty 00:00:00 00:00:00 BILLIE [address] 2020-05-11 2020-05-11 AppointDANNIE Allen [facility] [id number] [place] 13:30:00 13:30:00 t; SUNNY COLÓN M.D. P hysici BRUCE, ans M.D. 2019-11-11 2019-11-11 DANNIE Cortez [id number] [place] 13:30:00 13:30:00 t; SUNNY COLÓN M.D. P hysici BRUCE, ans M.D. 2019-11-11 2019-11-11 Outpatient MEKHI, [facility] [id number] Novelty 00:00:00 00:00:00 DOROTA 051 Meth solo 2019-08-13 2019-08-13 Outpatient MEKHI, [facility] [id number] Novelty 00:00:00 00:00:00 DOROTA 812 Meth solo 2019-05-20 2019-05-20 Appointmen DANNIE COLÓN [id number] [place] 14:00:00 14:00:00 t; SUNNY COLÓN M.D. P hysici BRUCE, ans M.D. 2017-05-22 2017-05-22 AppointDANNIE Allen [place] [id number] [place] 13:30:00 13:30:00 t; SUNNY COLÓN M.D. Multi P hysici BRUCE, Specialty ans M.D. 2017-04-10 2017-04-10 DANNIE Cortez [id number] [place] 13:30:00 13:30:00 t; SUNNY COLÓN M.D. P hysici BRUCE, ans M.D. 2017-03-01 2017-04-01 Inpatient [facility] [id number] [facility] 20:18:00 22:35:[address] 2017-03-01 2017-04-01 Inpatient [facility] [id number] [facility] 20:18:00 22:35:00 r Casey 67 l [facility] 2017-03-01 2017-04-01 Outpatient JustinSunny [facility] 457 [id number] 15:18:00 17:35:00 C 66 Results Test Description Test Time Test Comments Results Result Comments Source Comprehensive metabolic panel 2021-12-13 16:39:00 Test Item Value Reference Range Interpretation Comme nts Glucose (test code = 98 mg/dL 65-99 Fastin g reference 2345-7) interval BUN (test code = 3094-0) 53 mg/dL 7-25 H Creatinine (test code = 1.76 mg/dL 0.7-1.18 H For patients >49 years of 2160-0) age, the refere nce limitfor Creati nine is approximately 1 3% higher for peopleident ified as -Sandy n. EGFR Non-Afr. Stateless See_Comment L [Aut omated message] The (test code = 2775) system [facility] generated this result tra nsmitted reference range : > OR = 60 mL/min/1.73m 2. The reference range was not used to interpr et this result as normal/abnormal . EGFR See_Comment L [Auto mated message] The (test code = 2774) system [facility] generated this result tra nsmitted reference range : > OR = 60 mL/min/1.73m 2. The reference range was not used to interpr et this result as normal/abnormal . BUN/creatinine ratio See_Comment H [Autom ated message] The (test code = 3097-3) system which generated this result tra nsmitted reference range : 6 - 22 (calc). The ref erence range was not u sed to interpret this result as normal/abnormal . Sodium (test code = 140 mmol/L 860-949 4583-2) Potassium (test code = 4.3 mmol/L 3.5-5.3 2823-3) Chloride (test code = 101 mmol/L 98-110 5-0) CO2 (test code = 2027-) 31 mmol/L 20-32 Calcium (test code = 9.6 mg/dL 8.6-10.3 60788-8) Protein (test code = 7.3 g/dL 6.1-8.1 2885-2) Albumin, S (test code = 4.3 g/dL 3.6-5.1 1751-7) Globulin, total (test See_Comment [Auto mated message] The code = 25543-0) system which generated this result tra nsmitted reference range : 1.9 - 3.7 g/dL (calc) . The reference range was not used to interpr et this result as normal/abnormal . Albumin/globulin ratio See_Comment [Aut omated message] The (test code = 1759-0) system which generated this result tra nsmitted reference range : 1.0 - 2.5 (calc). The reference range was not u sed to interpret this result as normal/abnormal . Total bilirubin (test 0.7 mg/dL 0.2-1.2 code = 1974-2) Alkaline phosphatase 91 U/L 35-144 (test code = 6768-6) AST (test code = 1920-8) 22 U/L 10-35 ALT (test code = 1742-6) 19 U/L 9-46 RAC (test code = RAC) Performing Organization Information: Site ID: RGA Name: [facility] Address: [address] [place] [phone] Director: Billie Johnson Lab Interpretation (test Abnormal code = 11624-0) [facility] [id number] 16:39:00 Test Item Value Reference Range Interpretation Comments Cholesterol, total 101 mg/dL See_Comment [Automat ed (test code = 2093-3) message ] The system which generated this result transmitted reference range : <=200. The reference range was not used to interpret this result as normal/abnormal . HDL cholesterol 45 mg/dL See_Comment [Automated (test code = 2085-9) message ] The system which generated this result transmitted reference range : > OR = 40. The reference range was not used to interpret this result as normal/abnormal . Triglycerides (test 148 mg/dL See_Comment [Automa jeremías code = 2571-8) message] The system which generated this result transmitted reference range : <=150. The reference range was not used to interpret this result as normal/abnormal . LDL cholesterol mg/dL (calc) Reference ra nge: calculated (test <100 Desira ble code = 81955-7) range <100 m g/dL for primary prevention; <70 mg/dL for patients with C HD or diabetic patients with > or = 2 CHD risk factors. LDL-C is now calculated using the Andrea calculation, which is a validated novel method providin g better accuracy than the Friedewald equation in the estimation of LDL-C. Bright S S et al. NEGRO. 2013;310(19): 3828-4259 (http://educati on .3 day BlindsDiagnosti Jiahe .com/faq/FQL200 ) Cholesterol/HDL See_Comment [Automated ratio (test code = message] The 9830-1) system which generated this result transmitted reference range : <5.0 (calc). Th e reference range was not used to interpret this result as normal/abnormal . Non-HDL cholesterol See_Comment For yeyo ents with (test code = diabetes plus 1 59619-1) major ASCVD ris k factor, treatin g to a non-HDL-C goal of <100 mg/dL (LDL-C of <70 mg/dL) is considered a therapeutic option. [Automated message] The system which generated this result transmitted reference range : <130 mg/dL (calc). The reference range was not used to interpret this result as normal/abnormal . RAC (test code = Performing RAC) Organization Information: Site ID: RGA Name: [facility] Address: [address] [place] [phone] Director: Billie Johnson [facility] TylerHemoglobin [id number] 16:39:00 Test Item Value Reference Interpretation Comments Range Hemoglobin A1C (test See_Comment H For latasha eone without code = 4548-4) known diabete s, a hemoglobin A1cv alue of 6.5% or grea ter indicates that they may have diabet es and this should be confirmed with a follow-up test. For someone with kn own diabetes, a marvin ue <7% indicates t hat their diabetes is well controlled and a value greater than or equal t o 7% indicates suboptimal cont rol. A1c targets kenny uld be individualiz ed based on durati on of diabetes, ag e, comorbid conditions, and other considerations. Currently, no consensus exist s regarding use ofhemoglobin A1 c for diagnosis o f diabetes for children. [Automated mess age] The system [employer] generated this result transmit jeremías reference range : <5.7 % of total Hgb. The refere nce range was not u sed to interpret th is result as normal/abnormal . RAC (test code = Performing RAC) Organization Information: Site ID: JACOB Name: [facility] Address: [address] [place] [address] Director: Billie Johnson Lab Interpretation Abnormal (test code = 38166-3) [facility] TylerT4, [id number] 16:39:00 Test Item Value Reference Range Interpretation Comments T4, free (test code 1.4 ng/dL 0.8-1.8 = 3024-7) RAC (test code = Performing Organization RAC) Information: Site ID: YOVANNY Name: [facility] Address: [address] [place] [address] Director: Billie Johnson [facility] TylerThyroid stimulating [id number] 16:39:00 Test Item Value Reference Range Interpretation Comments TSH (test See_Comment [Automated mes jens] code = The system [employer] 3016-3) generated this result transmit jeremías reference range : 0.40 - 4.50 mIU /L. The reference r nhung was not used to interpret this result as normal/abnormal . RAC (test Performing code = RAC) Organization Information: Site ID: [facility] Name: [facility] Address: [address] [place] [phone] Director: Billie Johnson [facility] TylerUric acid [id number] 16:39:00 Test Item Value Reference Range Interpretation Comments Uric acid 4.3 mg/dL 4-8 Therapeutic tar get (test code = for gout patien ts: 3084-1) <6.0 mg/dL RAC (test Performing code = RAC) Organization Information: Site ID: [facility] Name: [facility] Address: [address] [place] [address] Director: Billie Johnson [facility] TylerCB with platelet and [id number] 16:39:00 Test Item Value Reference Range Interpretation Comments WBC (test code = See_Comment [Automated 6690-2) message] The system which generated this result transmitted reference range : 3.8 - 10.8 Thousand/uL. Th e reference range was not used to interpret this result as normal/abnormal . RBC (test code = See_Comment [Automated 789-8) message] The system which generated this result transmitted reference range : 4.20 - 5.80 Million/uL. The reference range was not used to interpret this result as normal/abnormal . HGB (test code = 14.9 g/dL 13.2-17.1 718-7) HCT (test code = 45.7 % 38.5-50 4544-3) MCV (test code = 100.2 fL 80-100 H 787-2) MCH (test code = 32.7 pg 27-33 785-6) MCHC (test code = 32.6 g/dL 32-36 786-4) RDW (test code = 13.3 % 11-15 788-0) Platelet count (test See_Comment L [Autom ated code = 777-3) message] The system which generated this result transmitted reference range : 140 - 400 Thousand/uL. Th e reference range was not used to interpret this result as normal/abnormal . MPV (test code = 13.0 fL 7.5-12.5 H 776-5) Neutrophils, See_Comment [Automated absolute (test code message] The = 751-8) system which generated this result transmitted reference range : 1,500 - 7,800 cells/uL. The reference range was not used to interpret this result as normal/abnormal . Lymphocytes, See_Comment L [Automated absolute (test code message] The = 731-0) system which generated this result transmitted reference range : 850 - 3,900 cells/uL. The reference range was not used to interpret this result as normal/abnormal . Monocytes, absolute See_Comment [Automa jeremías (test code = 742-7) message] The system which generated this result transmitted reference range : 200 - 950 cells/uL. The reference range was not used to interpret this result as normal/abnormal . Eosinophils, See_Comment [Automated absolute (test code message] The = 711-2) system which generated this result transmitted reference range : 15 - 500 cells/uL. The reference range was not used to interpret this result as normal/abnormal . Basophils, absolute See_Comment [Automa jeremías (test code = 704-7) message] The system which generated this result transmitted reference range : 0 - 200 cells/u L. The reference range was not used to interpr et this result as normal/abnormal . Neutrophils (test 74.5 % code = 770-8) Lymphocytes (test 13.0 % code = 736-9) Monocytes (test code 8.1 % = 5905-5) Eosinophils (test 3.9 % code = 713-8) Basophils + RC (test 0.5 % code = 706-2) RAC (test code = Performing RAC) Organization Information: Site ID: [facility] Address: [address] [place] [address] Director: Billie Johnson Lab Interpretation Abnormal (test code = 55335-8) [id number] 16:39:00 Test Item Value Reference Range Interpretation Comments C-peptide (test 2.26 ng/mL 0.8-3.85 code = 1986-9) RAC (test code = Performing Organization RAC) Information: Site ID: [facility] Address: [address] [place], [place] [id number] Director: Billie Johnson [facility] / creatinine urine [id number] 16:39:00 Test Item Value Reference Interpretation Comments Range Creatinine, urine 19 mg/dL 20-320 L (mg/dL) (test code = 2161-8) Microalbumin, urine 13.1 mg/dL See Note: Referenc e Range: (test code = Reference [place] 414[address]-0) established Microalbumin/creati See_Comment H The ADA defines nine ratio (test abnormaliti es in code = 9318-7) albuminexcret ion as follows: Albumi lauren Category Result (mcg/mg creatin ine) Normal to Mildl y increased <30Moderately increased 30-29 9 Severely increa sed > OR = 300 The AD A recommends that at least two of threespecimens collected withi n a 3-6 month perio d beabnormal befo re considering a patient to bewi thin a diagnostic category. [Auto mated message] The sy stem which generated this result transmit jeremías reference range : <30 mcg/mg creat. T he reference range was not used to interpret this result as normal/abnormal . RAC (test code = Performing RAC) Organization Information: Site ID: [id number] Name: [facility] Address: [address] [place] [phone] Director: Billie Johnson [facility] Interpretation Abnormal (test code = 65692-6) [facility], with reflex to culture 2021-12-13 16:39:00 Test Item Value Reference Range Interpretation Comments Color, UA (test code YELLOW YELLOW = 5778-6) Appearance (test CLOUDY CLEAR A code = 5767-9) Specific gravity, 1.001-1.035 urine (test code = 5811-5) pH, urine (test code 5-8 = 5803-2) Glucose, urine (test NEGATIVE NEGATIVE code = 51006-1) Bilirubin, UA (test NEGATIVE NEGATIVE code = 5770-3) Ketones, UA (test NEGATIVE NEGATIVE code = 2514-8) Occult blood, urine NEGATIVE NEGATIVE (test code = 5794-3) Protein, UA (test TRACE NEGATIVE A code = 79025-6) Nitrite, UA (test NEGATIVE NEGATIVE code = 5802-4) Leukocyte esterase, NEGATIVE NEGATIVE UA (test code = 5799-2) WBC, UA (test code = NONE SEEN See_Comment [Autom ated 5821-4) message] The system which generated this result transmitted reference range : < OR = 5 /HPF. The reference range was not used to interpr et this result as normal/abnormal . RBC, UA (test code = NONE SEEN See_Comment [Autom ated 71968-9) message] The system which generated this result transmitted reference range : < OR = 2 /HPF. The reference range was not used to interpr et this result as normal/abnormal . Squamous epithelial NONE SEEN See_Comment [Automa jeremías cells, UA (test code message ] The = 19864-8) system which generated this result transmitted reference range : < OR = 5 /HPF. The reference range was not used to interpr et this result as normal/abnormal . Bacteria, UA (test NONE SEEN NONE SEEN /HPF code = 5769-5) Hyaline casts, UA NONE SEEN NONE SEEN /LPF (test code = 5796-8) Note: (test code = This urin e was 8251-1) analyzed for th e presence of WBC , RBC, bacteria, casts, and othe r formed elements . Only those elements seen were reported. Reflex (test code = NO CULTU RE 630-4) INDICATED RAC (test code = Performing RAC) Organization Information: Site ID: RGA Name: [facility] Address: [address] [place] [phone] Director: Billie Johnson [facility] Interpretation Abnormal (test code = 70818-8) [facility] metabolic [id number] 10:11:00 Test Item Value Reference Interpretation Comments Range Glucose (test code 121 mg/dL 65-139 Non-fast ing = 2345-7) reference inter marvin BUN (test code = 48 mg/dL 7-25 H 3094-0) Creatinine (test 1.85 mg/dL 0.7-1.18 H For patient s >49 code = 2160-0) years of age, the reference limit for Creatinine is approximately 1 3% higher for peopleidentifie d as -Sandy n. EGFR Non-Afr. See_Comment L [Automated me ssage] Stateless (test code The syst em which = 2775) generated this result transmit jeermías reference range : > OR = 60 mL/min/1.73m2. The reference range was not used to interpret this result as normal/abnormal . EGFR See_Comment L [Automated mes jens] Stateless (test code The syst em which = 2774) generated this result transmit jeremías reference range : > OR = 60 mL/min/1.73m2. The reference range was not used to interpret this result as normal/abnormal . BUN/creatinine See_Comment H [Automated m essage] ratio (test code = The syste m which 3097-3) generated this result transmit jeremías reference range : 6 - 22 (calc). The reference range was not used to interpret this result as normal/abnormal . Sodium (test code = 139 mmol/L 737-300 6534-2) Potassium (test 3.8 mmol/L 3.5-5.3 code = 2823-3) Chloride (test code 101 mmol/L 98-110 = 2075-0) CO2 (test code = 29 mmol/L 20-32 2028-9) Calcium (test code 9.0 mg/dL 8.6-10.3 = 35366-2) JUSTINE (test code = FASTING:NO JUSTINE) FASTING: NO RAC (test code = Performing RAC) Organization Information: Site ID: JACOB [facility] Address: [address] [place] [phone] Director: Billie Johnson Lab Interpretation Abnormal (test code = 79235-8) [facility] [id number] 15:52:20 Test Item Value Reference Range Interpretation Comments Case number (test code = [id number]) Surgical pathology See link below for report (test code = PDF Lab Report 2255) Result status (test code This is Final Report = [id number]) for [id number] [facility] [id number] 14:13:53 Test Item Value Reference Range Interpretation Comments POC glucose (test code 124 mg/dL 65-99 H Opera tor Name: = 64160-5) Gibson donis ID: [id number] able: [facility] 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 Am. Nohemi. Cardiol. 2002; 40:976-982. [Au tomated message] The sy stem which generated this result transmit jeremías reference range : <=100. The reference r nhung was not used to int erpret this result as normal/abnormal . RAC (test Performing code = RAC) Organization Information: Site ID: JACOB [facility] Address: [address] [place] [phone] Director: [facility] Johnson [facility]IN[facility], COMPLETE, WITH REFLEX TO [id number] 21:30:00 Test Item Value Reference Range Interpretation Comments Color, UA (test code YELLOW YELLOW = 5778-6) Appearance (test CLEAR CLEAR code = 5767-9) Specific gravity, 1.001-1.035 urine (test code = 5811-5) pH, urine (test code 5-8 = 5803-2) Glucose, urine (test NEGATIVE NEGATIVE code = 76325-9) Bilirubin, UA (test NEGATIVE NEGATIVE code = 5770-3) Ketones, UA (test NEGATIVE NEGATIVE code = 2514-8) Occult blood, urine NEGATIVE NEGATIVE (test code = 5794-3) Protein, UA (test 1+ NEGATIVE A code = 61718-2) Nitrite, UA (test NEGATIVE NEGATIVE code = 5802-4) Leukocyte esterase, NEGATIVE NEGATIVE UA (test code = 5799-2) WBC, UA (test code = NONE SEEN See_Comment [Autom ated 5821-4) message] The system which generated this result transmitted reference range : < OR = 5 /HPF. The reference range was not used to interpr et this result as normal/abnormal . RBC, UA (test code = NONE SEEN See_Comment [Autom ated 05266-3) message] The system which generated this result transmitted reference range : < OR = 2 /HPF. The reference range was not used to interpr et this result as normal/abnormal . Squamous epithelial NONE SEEN See_Comment [Automa jeremías cells, UA (test code message ] The = 16601-7) system which generated this result transmitted reference range : < OR = 5 /HPF. The reference range was not used to interpr et this result as normal/abnormal . Bacteria, UA (test NONE SEEN NONE SEEN /HPF code = 5769-5) Hyaline casts, UA NONE SEEN NONE SEEN /LPF (test code = 5796-8) Reflex (test code = NO CULTU RE 630-4) INDICATED RAC (test code = Performing RAC) Organization Information: Site ID: RGA Name: [facility] Address: [address] [place] [phone] Director: Billie Johnson Lab Interpretation Abnormal (test code = 49717-7) [facility][] RENAL FUNCTION PANEL [id number] 10:10:00 Test Item Value Reference Range Interpretation Comments GLUCOSE; Normal 137 mg/dl 65-139 N Non-fasting reference (test code = interval 1547-9) UREA NITROGEN 43 mg/dl 7-25 (BUN) (test code = UREA NITROGEN (BUN)) CREATININE (test 1.58 mg/dl 0.70-1.18 For patient s >49 years code = CREATININE) of age, t he reference limitfor Creati nine is approximately 1 3% higher for peopleidentifie d as -Sandy n. eGFR NON-AFR. 42 See_Comment [Automated me ssage] TONGAN (test {ML/MIN/1.7} The system ich code = eGFR generated this result NON-AFR. TONGAN) transmitt ed reference range: > OR = 6 0. The reference range was not used to interpr et this result as normal/abnormal . eGFR 49 See_Comment [Automated mes jens] TONGAN (test {ML/MIN/1.7} The system ich code = eGFR generated this result ) transmitte d reference range: > OR = 6 0. The reference range was not used to interpr et this result as normal/abnormal . BUN/CREATININE 27 {CALC} 6-22 RATIO (test code = BUN/CREATININE RATIO) SODIUM (test code 139 mmol/L 135-146 N = SODIUM) POTASSIUM (test 3.7 mmol/L 3.5-5.3 N code = POTASSIUM) CHLORIDE (test 102 mmol/L 98-110 N code = CHLORIDE) CARBON DIOXIDE 29 mmol/L 20-32 N (test code = CARBON DIOXIDE) CALCIUM (test code 9.0 mg/dl 8.6-10.3 N = CALCIUM) PHOSPHATE ( 3.3 mg/dl 2.1-4.3 N PHOSPHORUS) (test code = PHOSPHATE ( PHOSPHORUS)) ALBUMIN (test code 3.9 g/dl 3.6-5.1 N = ALBUMIN) [facility]] PTH, INTACT (WITHOUT CALCIUM)2020-10-04 10:10:00 Test Item Value Reference Interpretation Comments Range PARATHYROID 102 pg/ml 14-64 Interpretive Gu gabrielle Intact PTH HORMONE, INTACT Calcium----- (test code = ---- ---Normal PARATHYROID Parathyroid Nor mal HORMONE, INTACT) NormalHypop arathyroidism Low or Low Normal LowHyperparathy roidism Primary Normal or High High Secondary High Normal or Low Tertiary High HighNon-Parathy roid Hypercalcemia L ow or Low Normal High REPORT COMMENT:FASTING:[facility]] RENAL FUNCTION PANEL W/EGFR 2017-05-21 12:02:00 Test Item Value Reference Range Interpretation Comments GLUCOSE; Above 231 mg/dl 65-99 Fasting refer ence High Threshold interval For someone (test code = without known d lilia, 1547-9) a glucosevalue >125 mg/dL indicates that they may havedi abetes and this should be confirmed with afollow-up test . UREA NITROGEN 49 mg/dl 7-25 (BUN) (test code = UREA NITROGEN (BUN)) CREATININE (test 1.53 mg/dl 0.70-1.18 For patient s >49 years code = CREATININE) of age, t he reference limitfor Creati nine is approximately 1 3% higher for peopleidentifie d as -Sandy n. eGFR NON- 45 > OR = 60 TONGAN (test {ML/MIN/1.7} code = eGFR NON-) eGFR 52 > OR = 60 TONGAN (test {ML/MIN/1.7} code = eGFR ) BUN/CREATININE 32 {CALC} 6-22 RATIO (test code = BUN/CREATININE RATIO) SODIUM (test code 133 mmol/L 135-146 = SODIUM) POTASSIUM (test 3.8 mmol/L 3.5-5.3 N code = POTASSIUM) CHLORIDE (test 98 mmol/L 98-110 N code = CHLORIDE) CARBON DIOXIDE 26 mmol/L 20-31 N (test code = CARBON DIOXIDE) CALCIUM (test code 9.0 mg/dl 8.6-10.3 N = CALCIUM) PHOSPHATE ( 3.0 mg/dl 2.1-4.3 N PHOSPHORUS) (test code = PHOSPHATE ( PHOSPHORUS)) ALBUMIN (test code 3.9 g/dl 3.6-5.1 N = ALBUMIN) [facility]] CBC (INCLUDES DIFF/PLT)2017-05-21 12:02:00 Test Item Value Reference Range Interpretation Comments WHITE BLOOD CELL COUNT 6.3 {Thousand/u} 3.8-10.8 N (test code = WHITE BLOOD CELL COUNT) RED BLOOD CELL COUNT (test 3.22 {Million/uL} 4.20-5.80 code = RED BLOOD CELL COUNT) HEMOGLOBIN; Below Low 10.0 g/dl 13.2-17.1 Threshold (test code = 42059-7) HEMATOCRIT; Below Low 30.5 % 38.5-50.0 Threshold (test code = 4544-3) MCV; Normal (test code = 94.7 fL 80.0-100.0 N 787-2) MCHC; Normal (test code = 32.8 g/dl 32.0-36.0 N 75126-6) RDW; Normal (test code = 14.4 % 11.0-15.0 N 788-0) PLATELET COUNT; Below Low 105 {Thousand/u} 140-400 Threshold (test code = 777-3) MPV; Normal (test code = 12.5 fL 7.5-12.5 N 48710-1) ABSOLUTE NEUTROPHILS (test 4523 {cells/uL} 4727-4927 N code = ABSOLUTE NEUTROPHILS) ABSOLUTE LYMPHOCYTES (test 932 {cells/uL} 850-3900 N code = ABSOLUTE LYMPHOCYTES) ABSOLUTE MONOCYTES (test 460 {cells/uL} 200-950 N code = ABSOLUTE MONOCYTES) ABSOLUTE EOSINOPHILS (test 353 {cells/uL} 15-500 N code = ABSOLUTE EOSINOPHILS) ABSOLUTE BASOPHILS (test 32 {cells/uL} 0-200 N code = ABSOLUTE BASOPHILS) NEUTROPHILS (test code = 71.8 % N NEUTROPHILS) LYMPHOCYTES (test code = 14.8 % N LYMPHOCYTES) MONOCYTES; Normal (test 7.3 % N code = 32476-5) EOSINOPHILS; Normal (test 5.6 % N code = 92737-0) BASOPHILS; Normal (test 0.5 % N code = 97109-3) [facility]] RENAL FUNCTION PANEL [id number] 10:29:00 Test Item Value Reference Range Interpretation Comments GLUCOSE; Above 212 mg/dl 65-99 Fasting refer ence High Threshold interval For someone (test code = without known d iabecelina, 1547-9) a glucosevalue >125 mg/dL indicates that they may havedi abetes and this should be confirmed with afollow-up test . UREA NITROGEN 60 mg/dl 7-25 (BUN) (test code = UREA NITROGEN (BUN)) CREATININE (test 1.77 mg/dl 0.70-1.18 For patient s >49 years code = CREATININE) of age, t he reference limitfor [facility] nine is approximately 1 3% higher for peopleidentifie d as -Sandy n. eGFR NON- 38 > OR = 60 TONGAN (test {ML/MIN/1.7} code = eGFR NON-) eGFR 44 > OR = 60 TONGAN (test {ML/MIN/1.7} code = eGFR ) BUN/CREATININE 34 {CALC} 6-22 RATIO (test code = BUN/CREATININE RATIO) SODIUM (test code 135 mmol/L 135-146 N = SODIUM) POTASSIUM (test 3.6 mmol/L 3.5-5.3 N code = POTASSIUM) CHLORIDE (test 102 mmol/L 98-110 N code = CHLORIDE) CARBON DIOXIDE 26 mmol/L 20-31 N (test code = CARBON DIOXIDE) CALCIUM (test code 8.6 mg/dl 8.6-10.3 N = CALCIUM) PHOSPHATE ( 2.9 mg/dl 2.1-4.3 N PHOSPHORUS) (test code = PHOSPHATE ( PHOSPHORUS)) ALBUMIN (test code 3.6 g/dl 3.6-5.1 N = ALBUMIN) [facility]] CBC (INCLUDES DIFF/PLT)2017-04-24 10:29:00 Test Item Value Reference Range Interpretation Comments WHITE BLOOD CELL COUNT 3.9 {Thousand/u} 3.8-10.8 N (test code = WHITE BLOOD CELL COUNT) RED BLOOD CELL COUNT (test 2.75 {Million/uL} 4.20-5.80 code = RED BLOOD CELL COUNT) HEMOGLOBIN; Below Low 8.3 g/dl 13.2-17.1 Threshold (test code = 87097-6) HEMATOCRIT; Below Low 25.3 % 38.5-50.0 Threshold (test code = 4544-3) MCV; Normal (test code = 92.0 fL 80.0-100.0 N 787-2) MCHC; Normal (test code = 32.8 g/dl 32.0-36.0 N 45953-6) RDW; Above High Threshold 16.8 % 11.0-15.0 (test code = 788-0) PLATELET COUNT; Below Low 105 {Thousand/u} 140-400 Threshold (test code = 777-3) MPV; Normal (test code = 11.9 fL 7.5-12.5 N 15993-5) ABSOLUTE NEUTROPHILS (test 2523 {cells/uL} 3714-8418 N code = ABSOLUTE NEUTROPHILS) ABSOLUTE LYMPHOCYTES (test 612 {cells/uL} 850-3900 code = ABSOLUTE LYMPHOCYTES) ABSOLUTE MONOCYTES (test 308 {cells/uL} 200-950 N code = ABSOLUTE MONOCYTES) ABSOLUTE EOSINOPHILS (test 425 {cells/uL} 15-500 N code = ABSOLUTE EOSINOPHILS) ABSOLUTE BASOPHILS (test 31 {cells/uL} 0-200 N code = ABSOLUTE BASOPHILS) NEUTROPHILS (test code = 64.7 % N NEUTROPHILS) LYMPHOCYTES (test code = 15.7 % N LYMPHOCYTES) MONOCYTES; Normal (test 7.9 % N code = 02138-3) EOSINOPHILS; Normal (test 10.9 % N code = 22022-5) BASOPHILS; Normal (test 0.8 % N code = 72118-9) [facility]] [id number] 10:01:00 Test Item Value Reference Range Interpretation Comments MAGNESIUM (test code = MAGNESIUM) 1.3 mg/dl 1.5-2.5 [facility]] RENAL FUNCTION PANEL [id number] 10:01:00 Test Item Value Reference Range Interpretation Comments GLUCOSE; Above 100 mg/dl 65-99 Fasting refer ence High Threshold interval For someone (test code = without known d lilia, 1547-9) a glucose value between 100 and 125 mg/ dL is consistent withprediabetes and should be confi rmed with afollow-up test. UREA NITROGEN 116 mg/dl 7-25 Verified by re peat (BUN) (test code = analysis. UREA NITROGEN (BUN)) CREATININE (test 3.33 mg/dl 0.70-1.18 For patient s >49 years code = CREATININE) of age, t he reference limitfor [facility] is approximately 1 3% higher for peopleidentifie d as -Sandy n. eGFR NON- 18 > OR = 60 TONGAN (test {ML/MIN/1.7} code = eGFR NON-) eGFR 20 > OR = 60 TONGAN (test {ML/MIN/1.7} code = eGFR ) BUN/CREATININE 35 {CALC} 6-22 RATIO (test code = BUN/CREATININE RATIO) SODIUM (test code 133 mmol/L 135-146 = SODIUM) POTASSIUM (test 3.6 mmol/L 3.5-5.3 N code = POTASSIUM) CHLORIDE (test 98 mmol/L 98-110 N code = CHLORIDE) CARBON DIOXIDE 21 mmol/L 20-31 N (test code = CARBON DIOXIDE) CALCIUM (test code 7.9 mg/dl 8.6-10.3 = CALCIUM) PHOSPHATE ( 5.2 mg/dl 2.1-4.3 PHOSPHORUS) (test code = PHOSPHATE ( PHOSPHORUS)) ALBUMIN (test code 3.7 g/dl 3.6-5.1 N = ALBUMIN) [facility]] CBC (INCLUDES DIFF/PLT)2017-04-09 10:01:00 Test Item Value Reference Range Interpretation Comments WHITE BLOOD CELL COUNT 6.4 {Thousand/u} 3.8-10.8 N (test code = WHITE BLOOD CELL COUNT) RED BLOOD CELL COUNT (test 3.02 {Million/uL} 4.20-5.80 code = RED BLOOD CELL COUNT) HEMOGLOBIN; Below Low 8.7 g/dl 13.2-17.1 Threshold (test code = 61903-5) HEMATOCRIT; Below Low 26.2 % 38.5-50.0 Threshold (test code = 4544-3) MCV; Normal (test code = 86.8 fL 80.0-100.0 N 787-2) MCHC; Normal (test code = 33.2 g/dl 32.0-36.0 N 68804-0) RDW; Above High Threshold 15.4 % 11.0-15.0 (test code = 788-0) PLATELET COUNT; Below Low 126 {Thousand/u} 140-400 Threshold (test code = 777-3) MPV; Normal (test code = 11.2 fL 7.5-12.5 N 99056-5) ABSOLUTE NEUTROPHILS (test 4762 {cells/uL} 4509-1850 N code = ABSOLUTE NEUTROPHILS) ABSOLUTE LYMPHOCYTES (test 826 {cells/uL} 850-3900 code = ABSOLUTE LYMPHOCYTES) ABSOLUTE MONOCYTES (test 480 {cells/uL} 200-950 N code = ABSOLUTE MONOCYTES) ABSOLUTE EOSINOPHILS (test 301 {cells/uL} 15-500 N code = ABSOLUTE EOSINOPHILS) ABSOLUTE BASOPHILS (test 32 {cells/uL} 0-200 N code = ABSOLUTE BASOPHILS) NEUTROPHILS (test code = 74.4 % N NEUTROPHILS) LYMPHOCYTES (test code = 12.9 % N LYMPHOCYTES) MONOCYTES; Normal (test 7.5 % N code = 49017-3) EOSINOPHILS; Normal (test 4.7 % N code = 26054-0) BASOPHILS; Normal (test 0.5 % N code = 90144-8) [facility]2017-10-25 10:27:00 Test Item Value Reference Range Interpretation Comments Magnesium Lvl (test code = Magnesium 1.7 1.8-2.4 Lvl) [facility]2017-10-25 10:27:00 Test Item Value Reference Range Interpretation Comments Phosphorus (test code = Phosphorus) 4.6 2.5-4.5 [facility]2017-10-25 10:27:00 Test Item Value Reference Range Interpretation Comments BUN (test code = BUN) 68 7-22 [facility]2017-10-25 10:27:00 Test Item Value Reference Range Interpretation Comments Glucose Lvl (test code = Glucose Lvl) 56 70-99 [facility]2017-10-25 10:27:00 Test Item Value Reference Range Interpretation Comments Creatinine Lvl (test code = Creatinine 4.06 0.50-1.40 Lvl) [facility]2017-10-25 10:27:00 Test Item Value Reference Range Interpretation Comments Calcium Lvl (test code = Calcium Lvl) 7.8 8.5-10.5 [facility]2017-10-25 10:27:00 Test Item Value Reference Range Interpretation Comments CO2 (test code = CO2) 22 24-32 [facility]2017-10-25 10:27:00 Test Item Value Reference Range Interpretation Comments AGAP (test code = AGAP) 15.8 10.0-20.0 [facility]2017-10-25 10:27:00 Test Item Value Reference Range Interpretation Comments Sodium Lvl (test code = Sodium Lvl) 132 135-145 [facility]2017-10-25 10:27:00 Test Item Value Reference Range Interpretation Comments Chloride Lvl (test code = Chloride Lvl) 98 95-109 [facility]2017-10-25 10:27:00 Test Item Value Reference Range Interpretation Comments Potassium Lvl (test code = Potassium 3.8 3.5-5.1 Lvl) [facility]2017-10-25 10:27:00 Test Item Value Reference Range Interpretation Comments eGFR (test code = eGFR) 14 [facility]CltxuszKPYYJPXINL9980-64-01 10:27:00 Test Item Value Reference Range Interpretation Comments WBC (test code = WBC) 8.5 3.7-10.4 [facility] TexasIobmlxsTVGRUGRBXB2413-27-11 10:27:00 Test Item Value Reference Range Interpretation Comments Hgb (test code = Hgb) 7.9 14.0-18.0 [facility] TexasKzdopegQGVPDOJRUD6139-27-27 10:27:00 Test Item Value Reference Range Interpretation Comments RBC (test code = RBC) 2.62 4.70-6.10 [facility] TexasQnpuzvpUBQERKRKIL4986-88-47 10:27:00 Test Item Value Reference Range Interpretation Comments Hct (test code = Hct) 22.5 42.0-54.0 [facility] TexasXauppgrSVHJKSKIAO1770-66-85 10:27:00 Test Item Value Reference Range Interpretation Comments MCH (test code = MCH) 30.2 pg 27.0-31.0 [facility] TexasPbsbxsvBPSNHOHVPX9445-04-67 10:27:00 Test Item Value Reference Range Interpretation Comments MCV (test code = MCV) 86.1 80.0-94.0 [facility] TexasSfiuwhnXVIJDOHVGO9648-13-47 10:27:00 Test Item Value Reference Range Interpretation Comments MCHC (test code = MCHC) 35.1 32.0-36.0 [facility] TexasSeuxyuoSVECURPGFN3661-23-82 10:27:00 Test Item Value Reference Range Interpretation Comments MPV (test code = MPV) 9.1 7.4-10.4 [facility] TexasCezjuymCTVWMEQAHE9724-22-13 10:27:00 Test Item Value Reference Range Interpretation Comments RDW (test code = RDW) 14.8 11.5-14.5 [facility] TexasUcrhqeiVHGIYDPZQX6581-56-04 10:27:00 Test Item Value Reference Range Interpretation Comments Platelet (test code = Platelet) 138 133-450 [facility] TexasHvrqmdgQEDCZYEHGI8220-92-56 10:27:00 Test Item Value Reference Range Interpretation Comments Eosinophils # (test code 0.1 See_Comment [A utomated message] The = Eosinophils #) system whic h generated this result tra nsmitted reference range : <=0.5. The reference r nhung was not used to int erpret this result as normal/abnormal . [facility] TexasTxpvknoCMVOJUSLLY1772-96-16 10:27:00 Test Item Value Reference Range Interpretation Comments Segs-Bands # (test code = Segs-Bands #) 6.6 1.5-8.1 [facility] TexasWfgdjfcMEJJJFRUEQ8535-21-80 10:27:00 Test Item Value Reference Range Interpretation Comments Basophils (test code = 0.5 See_Comment [Aut omated message] The Basophils) system which ge nerated this result tra nsmitted reference range : <=1.0. The reference r nhung was not used to int erpret this result as normal/abnormal . [facility] TexasIccflyrAVUKYPTTIY9551-56-58 10:27:00 Test Item Value Reference Range Interpretation Comments Eosinophils (test code = 0.8 See_Comment [A utomated message] The Eosinophils) system which ge nerated this result tra nsmitted reference range : <=4.0. The reference r nhung was not used to int erpret this result as normal/abnormal . [facility] TexasRhrcxqvSOQKVITLHI1015-80-65 10:27:00 Test Item Value Reference Range Interpretation Comments Monocytes # (test code 1.0 See_Comment [Aut omated message] The = Monocytes #) system which generated this result tra nsmitted reference range : <=0.8. The reference r nhung was not used to int erpret this result as normal/abnormal . [facility] TexasSxodxwhYOEYZRMHGJ5694-07-23 10:27:00 Test Item Value Reference Range Interpretation Comments Lymphocytes # (test code = Lymphocytes 0.8 1.0-5.5 #) [facility] TexasGnhubswOPYUXRDIXT1960-11-91 10:27:00 Test Item Value Reference Range Interpretation Comments Lymphocytes (test code = Lymphocytes) 9.4 20.0-40.0 [facility] TexasNwvvdfdFMGWQJGKZO1410-01-35 10:27:00 Test Item Value Reference Range Interpretation Comments Monocytes (test code = Monocytes) 11.7 2.0-12.0 [facility] TexasYxbecezRICFQENMYY2717-69-25 10:27:00 Test Item Value Reference Range Interpretation Comments Segs (test code = Segs) 77.6 45.0-75.0 [facility]2017-10-25 10:27:00 Test Item Value Reference Range Interpretation Comments Magnesium Lvl (test code = Magnesium 1.7 1.8-2.4 Lvl) [facility]2017-10-25 10:27:00 Test Item Value Reference Range Interpretation Comments Phosphorus (test code = Phosphorus) 4.6 2.5-4.5 [facility]2017-10-25 10:27:00 Test Item Value Reference Range Interpretation Comments BUN (test code = BUN) 68 7-22 [facility]2017-10-25 10:27:00 Test Item Value Reference Range Interpretation Comments Glucose Lvl (test code = Glucose Lvl) 56 70-99 [facility]2017-10-25 10:27:00 Test Item Value Reference Range Interpretation Comments Creatinine Lvl (test code = Creatinine 4.06 0.50-1.40 Lvl) [facility]2017-10-25 10:27:00 Test Item Value Reference Range Interpretation Comments Calcium Lvl (test code = Calcium Lvl) 7.8 8.5-10.5 [facility]2017-10-25 10:27:00 Test Item Value Reference Range Interpretation Comments CO2 (test code = CO2) 22 24-32 [facility]2017-10-25 10:27:00 Test Item Value Reference Range Interpretation Comments AGAP (test code = AGAP) 15.8 10.0-20.0 [facility]2017-10-25 10:27:00 Test Item Value Reference Range Interpretation Comments Sodium Lvl (test code = Sodium Lvl) 132 135-145 [facility]2017-10-25 10:27:00 Test Item Value Reference Range Interpretation Comments Chloride Lvl (test code = Chloride Lvl) 98 95-109 [facility]2017-10-25 10:27:00 Test Item Value Reference Range Interpretation Comments Potassium Lvl (test code = Potassium 3.8 3.5-5.1 Lvl) [facility]2017-10-25 10:27:00 Test Item Value Reference Range Interpretation Comments eGFR (test code = eGFR) 14 [facility] TexasUnintmyDHGMSOBPVI5507-20-70 10:27:00 Test Item Value Reference Range Interpretation Comments WBC (test code = WBC) 8.5 3.7-10.4 [facility] TexasKdbvewfBXSPPKWTKI3998-93-16 10:27:00 Test Item Value Reference Range Interpretation Comments Hgb (test code = Hgb) 7.9 14.0-18.0 [facility] TexasEobmexeGWGDAFZHAP4210-27-76 10:27:00 Test Item Value Reference Range Interpretation Comments RBC (test code = RBC) 2.62 4.70-6.10 [facility] TexasCkoluthSSXHYUSSXA4698-75-40 10:27:00 Test Item Value Reference Range Interpretation Comments Hct (test code = Hct) 22.5 42.0-54.0 [facility] TexasAkbjmwsXTEEEHWWHE9437-38-69 10:27:00 Test Item Value Reference Range Interpretation Comments MCH (test code = MCH) 30.2 pg 27.0-31.0 [facility] TexasPhwtqvoUIJGHZQBVC2166-10-20 10:27:00 Test Item Value Reference Range Interpretation Comments MCV (test code = MCV) 86.1 80.0-94.0 [facility] TexasDuhqgdjSLSULQTZIH9462-20-95 10:27:00 Test Item Value Reference Range Interpretation Comments MCHC (test code = MCHC) 35.1 32.0-36.0 [facility] TexasMwkjptuLAFNWHZMRP3906-30-46 10:27:00 Test Item Value Reference Range Interpretation Comments MPV (test code = MPV) 9.1 7.4-10.4 [facility] TexasVyqyjznMIFKENABMB6035-51-64 10:27:00 Test Item Value Reference Range Interpretation Comments RDW (test code = RDW) 14.8 11.5-14.5 [facility] TexasNfmdixuCAXJHAETDD1703-47-80 10:27:00 Test Item Value Reference Range Interpretation Comments Platelet (test code = Platelet) 138 133-450 [facility] TexasXbohipyHEUMENZNAB8794-90-88 10:27:00 Test Item Value Reference Range Interpretation Comments Eosinophils # (test code 0.1 See_Comment [A utomated message] The = Eosinophils #) system whic h generated this result tra nsmitted reference range : <=0.5. The reference r nhung was not used to int erpret this result as normal/abnormal . [facility] TexasUzhxuukJDMNRGMFAC4616-19-18 10:27:00 Test Item Value Reference Range Interpretation Comments Segs-Bands # (test code = Segs-Bands #) 6.6 1.5-8.1 [facility] TexasUuvexpvLYTJKHVPNC2729-56-92 10:27:00 Test Item Value Reference Range Interpretation Comments Basophils (test code = 0.5 See_Comment [Aut omated message] The Basophils) system which ge nerated this result tra nsmitted reference range : <=1.0. The reference r nhung was not used to int erpret this result as normal/abnormal . [facility] TexasVwnabktPIFONERWNZ7772-28-28 10:27:00 Test Item Value Reference Range Interpretation Comments Eosinophils (test code = 0.8 See_Comment [A utomated message] The Eosinophils) system which ge nerated this result tra nsmitted reference range : <=4.0. The reference r nhung was not used to int erpret this result as normal/abnormal . [facility] TexasOaqrgzjVJKUFDVIER3388-59-33 10:27:00 Test Item Value Reference Range Interpretation Comments Monocytes # (test code 1.0 See_Comment [Aut omated message] The = Monocytes #) system which generated this result tra nsmitted reference range : <=0.8. The reference r nhung was not used to int erpret this result as normal/abnormal . [facility] TexasRlygjumVFWBAPQUWT8722-95-32 10:27:00 Test Item Value Reference Range Interpretation Comments Lymphocytes # (test code = Lymphocytes 0.8 1.0-5.5 #) [facility] TexasXarogpyYOMQTXHXFD8671-83-28 10:27:00 Test Item Value Reference Range Interpretation Comments Lymphocytes (test code = Lymphocytes) 9.4 20.0-40.0 [facility] TexasCfwjusePNVRRDXDYK3668-36-15 10:27:00 Test Item Value Reference Range Interpretation Comments Monocytes (test code = Monocytes) 11.7 2.0-12.0 [facility] TexasSdcxelaZLYGTBWFZA0361-11-46 10:27:00 Test Item Value Reference Range Interpretation Comments Segs (test code = Segs) 77.6 45.0-75.0 [facility]2017-10-24 13:59:00 Test Item Value Reference Range Interpretation Comments Phosphorus (test code = Phosphorus) 4.0 2.5-4.5 [facility]2017-10-24 13:59:00 Test Item Value Reference Range Interpretation Comments Magnesium Lvl (test code = Magnesium 1.6 1.8-2.4 Lvl) [facility]2017-10-24 13:59:00 Test Item Value Reference Range Interpretation Comments eGFR (test code = eGFR) 16 [facility]2017-10-24 13:59:00 Test Item Value Reference Range Interpretation Comments Potassium Lvl (test code = Potassium 3.4 3.5-5.1 Lvl) [facility]2017-10-24 13:59:00 Test Item Value Reference Range Interpretation Comments Creatinine Lvl (test code = Creatinine 3.69 0.50-1.40 Lvl) [facility]2017-10-24 13:59:00 Test Item Value Reference Range Interpretation Comments Sodium Lvl (test code = Sodium Lvl) 131 135-145 [facility]2017-10-24 13:59:00 Test Item Value Reference Range Interpretation Comments Glucose Lvl (test code = Glucose Lvl) 108 70-99 [facility]2017-10-24 13:59:00 Test Item Value Reference Range Interpretation Comments BUN (test code = BUN) 62 7-22 [facility]2017-10-24 13:59:00 Test Item Value Reference Range Interpretation Comments CO2 (test code = CO2) 24 24-32 [facility]2017-10-24 13:59:00 Test Item Value Reference Range Interpretation Comments Calcium Lvl (test code = Calcium Lvl) 7.6 8.5-10.5 [facility]2017-10-24 13:59:00 Test Item Value Reference Range Interpretation Comments Chloride Lvl (test code = Chloride Lvl) 98 95-109 [facility]2017-10-24 13:59:00 Test Item Value Reference Range Interpretation Comments AGAP (test code = AGAP) 12.4 10.0-20.0 [facility] TexasMdkvoznCZIEKDWOPS3884-37-61 13:59:00 Test Item Value Reference Range Interpretation Comments Hgb (test code = Hgb) 7.5 14.0-18.0 [facility] TexasAjvegysVAILIPSTRC4172-97-64 13:59:00 Test Item Value Reference Range Interpretation Comments Hct (test code = Hct) 21.6 42.0-54.0 [facility] TexasZohyhbjLAOTOGKGIS8869-63-41 13:59:00 Test Item Value Reference Range Interpretation Comments RBC (test code = RBC) 2.49 4.70-6.10 [facility] TexasRiwmjsjODUJYHAJBJ9848-90-63 13:59:00 Test Item Value Reference Range Interpretation Comments RDW (test code = RDW) 14.9 11.5-14.5 [facility] TexasDfkvvigTBAWWFFDBO9198-92-77 13:59:00 Test Item Value Reference Range Interpretation Comments MCHC (test code = MCHC) 34.7 32.0-36.0 [facility] TexasQoibrycFLHZUUTWEV3757-53-34 13:59:00 Test Item Value Reference Range Interpretation Comments MPV (test code = MPV) 9.0 7.4-10.4 [facility] TexasHzbfxapZMRJGCPBML9411-70-46 13:59:00 Test Item Value Reference Range Interpretation Comments MCV (test code = MCV) 86.5 80.0-94.0 [facility] TexasEsmrevwDLKIVUEZML0158-55-11 13:59:00 Test Item Value Reference Range Interpretation Comments MCH (test code = MCH) 30.0 pg 27.0-31.0 [facility] TexasUjgiulpSDIBNUNSGA8677-19-73 13:59:00 Test Item Value Reference Range Interpretation Comments Platelet (test code = Platelet) 146 133-450 [facility] TexasPrwwzriUYYBTQWMSQ6940-12-43 13:59:00 Test Item Value Reference Range Interpretation Comments WBC (test code = WBC) 10.6 3.7-10.4 [facility] TexasCqoalxkWMMZNFKOUZ7909-56-09 13:59:00 Test Item Value Reference Range Interpretation Comments Monocytes # (test code 1.3 See_Comment [Aut omated message] The = Monocytes #) system which generated this result tra nsmitted reference range : <=0.8. The reference r nhung was not used to int erpret this result as normal/abnormal . [facility] TexasAcynqkkZHRIEPZKYS6147-87-98 13:59:00 Test Item Value Reference Range Interpretation Comments Segs (test code = Segs) 75.7 45.0-75.0 [facility] TexasDuihkrkNZRKKNUHIV0565-22-16 13:59:00 Test Item Value Reference Range Interpretation Comments Basophils # (test code 0.1 See_Comment [Aut omated message] The = Basophils #) system which generated this result tra nsmitted reference range : <=0.2. The reference r nhung was not used to int erpret this result as normal/abnormal . [facility] TexasQfykwfmLMAEOTHIMW1303-62-78 13:59:00 Test Item Value Reference Range Interpretation Comments Segs-Bands # (test code = Segs-Bands #) 8.0 1.5-8.1 [facility] TexasTqbyznhYKIQJASNWL0966-12-89 13:59:00 Test Item Value Reference Range Interpretation Comments Lymphocytes (test code = Lymphocytes) 6.9 20.0-40.0 [facility] TexasVexytfkACGWKDPCLU7201-82-94 13:59:00 Test Item Value Reference Range Interpretation Comments Eosinophils (test code = 4.2 See_Comment [A utomated message] The Eosinophils) system which ge nerated this result tra nsmitted reference range : <=4.0. The reference r nhung was not used to int erpret this result as normal/abnormal . [facility] TexasCwennpkZIYGXHYJTG6014-52-05 13:59:00 Test Item Value Reference Range Interpretation Comments Basophils (test code = 0.8 See_Comment [Aut omated message] The Basophils) system which ge nerated this result tra nsmitted reference range : <=1.0. The reference r nhung was not used to int erpret this result as normal/abnormal . [facility] TexasGbpaqnxWQVQQJPHAQ8889-74-55 13:59:00 Test Item Value Reference Range Interpretation Comments Monocytes (test code = Monocytes) 12.4 2.0-12.0 [facility] TexasSehtoluFJUKRULWTL4133-81-69 13:59:00 Test Item Value Reference Range Interpretation Comments Eosinophils # (test code 0.4 See_Comment [A utomated message] The = Eosinophils #) system whic h generated this result tra nsmitted reference range : <=0.5. The reference r nhung was not used to int erpret this result as normal/abnormal . [facility] TexasEsqhnqtAEIFDNERMT4075-84-91 13:59:00 Test Item Value Reference Range Interpretation Comments Lymphocytes # (test code = Lymphocytes 0.7 1.0-5.5 #) [facility]2017-10-24 13:59:00 Test Item Value Reference Range Interpretation Comments Phosphorus (test code = Phosphorus) 4.0 2.5-4.5 [facility]2017-10-24 13:59:00 Test Item Value Reference Range Interpretation Comments Magnesium Lvl (test code = Magnesium 1.6 1.8-2.4 Lvl) [facility]2017-10-24 13:59:00 Test Item Value Reference Range Interpretation Comments eGFR (test code = eGFR) 16 [facility]2017-10-24 13:59:00 Test Item Value Reference Range Interpretation Comments Potassium Lvl (test code = Potassium 3.4 3.5-5.1 Lvl) [facility]2017-10-24 13:59:00 Test Item Value Reference Range Interpretation Comments Creatinine Lvl (test code = Creatinine 3.69 0.50-1.40 Lvl) [facility]2017-10-24 13:59:00 Test Item Value Reference Range Interpretation Comments Sodium Lvl (test code = Sodium Lvl) 131 135-145 [facility]2017-10-24 13:59:00 Test Item Value Reference Range Interpretation Comments Glucose Lvl (test code = Glucose Lvl) 108 70-99 [facility]2017-10-24 13:59:00 Test Item Value Reference Range Interpretation Comments BUN (test code = BUN) 62 7-22 [facility]2017-10-24 13:59:00 Test Item Value Reference Range Interpretation Comments CO2 (test code = CO2) 24 24-32 [facility]2017-10-24 13:59:00 Test Item Value Reference Range Interpretation Comments Calcium Lvl (test code = Calcium Lvl) 7.6 8.5-10.5 [facility]2017-10-24 13:59:00 Test Item Value Reference Range Interpretation Comments Chloride Lvl (test code = Chloride Lvl) 98 95-109 [facility]2017-10-24 13:59:00 Test Item Value Reference Range Interpretation Comments AGAP (test code = AGAP) 12.4 10.0-20.0 [facility] TexasJnfwipsIUPRJNVSXR2205-74-52 13:59:00 Test Item Value Reference Range Interpretation Comments Hgb (test code = Hgb) 7.5 14.0-18.0 [facility] TexasWbykkkoWPNHBHEHBY7582-57-32 13:59:00 Test Item Value Reference Range Interpretation Comments Hct (test code = Hct) 21.6 42.0-54.0 [facility] TexasBxlgnfdQFRVOUEBKC8709-04-94 13:59:00 Test Item Value Reference Range Interpretation Comments RBC (test code = RBC) 2.49 4.70-6.10 [facility] TexasVnhsqhhIZNFIVJMBB6510-82-26 13:59:00 Test Item Value Reference Range Interpretation Comments RDW (test code = RDW) 14.9 11.5-14.5 [facility] TexasHkcgkzxMABVTUZJPX3102-78-16 13:59:00 Test Item Value Reference Range Interpretation Comments MCHC (test code = MCHC) 34.7 32.0-36.0 [facility] TexasWufmtsoJEBDGVVSYQ2688-35-59 13:59:00 Test Item Value Reference Range Interpretation Comments MPV (test code = MPV) 9.0 7.4-10.4 [facility] TexasBsumlseOVEYHFWSAC2428-34-93 13:59:00 Test Item Value Reference Range Interpretation Comments MCV (test code = MCV) 86.5 80.0-94.0 [facility] TexasAhpownaNUPRSQENVD7754-36-51 13:59:00 Test Item Value Reference Range Interpretation Comments MCH (test code = MCH) 30.0 pg 27.0-31.0 [facility] TexasAzwxvnqCQIKNKHSWO7640-23-48 13:59:00 Test Item Value Reference Range Interpretation Comments Platelet (test code = Platelet) 146 133-450 [facility] TexasIneimwtUNAXJVCSFV1010-49-56 13:59:00 Test Item Value Reference Range Interpretation Comments WBC (test code = WBC) 10.6 3.7-10.4 [facility] TexasRiqytyxLAPQQGIDRT1826-88-01 13:59:00 Test Item Value Reference Range Interpretation Comments Monocytes # (test code 1.3 See_Comment [Aut omated message] The = Monocytes #) system which generated this result tra nsmitted reference range : <=0.8. The reference r nhung was not used to int erpret this result as normal/abnormal . [facility] TexasRghbfqcQHNYQLRPNY8549-55-37 13:59:00 Test Item Value Reference Range Interpretation Comments Segs (test code = Segs) 75.7 45.0-75.0 [facility] TexasCpcljseGFRDFKEGUB0094-31-97 13:59:00 Test Item Value Reference Range Interpretation Comments Basophils # (test code 0.1 See_Comment [Aut omated message] The = Basophils #) system which generated this result tra nsmitted reference range : <=0.2. The reference r nhung was not used to int erpret this result as normal/abnormal . [facility] TexasVcxiboaJJXURWDAZJ3454-61-08 13:59:00 Test Item Value Reference Range Interpretation Comments Segs-Bands # (test code = Segs-Bands #) 8.0 1.5-8.1 [facility] TexasGildktfAJILLJSQJK1008-11-84 13:59:00 Test Item Value Reference Range Interpretation Comments Lymphocytes (test code = Lymphocytes) 6.9 20.0-40.0 [facility] TexasTsshzjuTYCKIQWWEO3198-11-15 13:59:00 Test Item Value Reference Range Interpretation Comments Eosinophils (test code = 4.2 See_Comment [A utomated message] The Eosinophils) system which ge nerated this result tra nsmitted reference range : <=4.0. The reference r nhung was not used to int erpret this result as normal/abnormal . [facility] TexasAeqytmnCXMIFNVGRW7548-53-11 13:59:00 Test Item Value Reference Range Interpretation Comments Basophils (test code = 0.8 See_Comment [Aut omated message] The Basophils) system which ge nerated this result tra nsmitted reference range : <=1.0. The reference r nhung was not used to int erpret this result as normal/abnormal . [facility] TexasXumhoraYUHUPDZLYQ2111-78-35 13:59:00 Test Item Value Reference Range Interpretation Comments Monocytes (test code = Monocytes) 12.4 2.0-12.0 [facility] TexasBscafjqPYYKTDBSEP1212-49-06 13:59:00 Test Item Value Reference Range Interpretation Comments Eosinophils # (test code 0.4 See_Comment [A utomated message] The = Eosinophils #) system whic h generated this result tra nsmitted reference range : <=0.5. The reference r nhung was not used to int erpret this result as normal/abnormal . [facility] TexasRncwvdaFIVYLSYNUF5113-75-13 13:59:00 Test Item Value Reference Range Interpretation Comments Lymphocytes # (test code = Lymphocytes 0.7 1.0-5.5 #) [facility]2017-10-23 17:40:00 Test Item Value Reference Range Interpretation Comments Phosphorus (test code = Phosphorus) 3.8 2.5-4.5 [facility]2017-10-23 17:40:00 Test Item Value Reference Range Interpretation Comments Magnesium Lvl (test code = Magnesium 1.8 1.8-2.4 Lvl) [facility]HfqqhuxYPRQCRQAWVOU8668-84-15 17:40:00 Test Item Value Reference Range Interpretation Comments AGAP (test code = AGAP) 13.3 10.0-20.0 [facility] CenterGebzunrSEXVEZGFCALY7299-06-65 17:40:00 Test Item Value Reference Range Interpretation Comments eGFR (test code = eGFR) 17 [facility] CenterFxrqznzXJLDNKRVHTHP2070-51-86 17:40:00 Test Item Value Reference Range Interpretation Comments BUN (test code = BUN) 52 7-22 [facility] CenterYqlefqiWEFJJBRYWBEW8220-55-48 17:40:00 Test Item Value Reference Range Interpretation Comments Chloride Lvl (test code = Chloride Lvl) 98 95-109 [facility] CenterZntebfhDGLUGPXOPJUD8639-98-24 17:40:00 Test Item Value Reference Range Interpretation Comments CO2 (test code = CO2) 23 24-32 [facility] CenterPxuzpgwHRQRJGLZKTWX2439-72-56 17:40:00 Test Item Value Reference Range Interpretation Comments Creatinine Lvl (test code = Creatinine 3.49 0.50-1.40 Lvl) [facility] CenterBdtbsbeIOKVGJPLEGNU1228-84-73 17:40:00 Test Item Value Reference Range Interpretation Comments Sodium Lvl (test code = Sodium Lvl) 130 135-145 [facility] CenterQaqkwdwSGHOGHJGLBFR5500-76-05 17:40:00 Test Item Value Reference Range Interpretation Comments Potassium Lvl (test code = Potassium 4.3 3.5-5.1 Lvl) [facility] CenterVmltlnqYGROASSCJWHN3300-57-02 17:40:00 Test Item Value Reference Range Interpretation Comments Calcium Lvl (test code = Calcium Lvl) 8.1 8.5-10.5 [facility] CenterMptperyOJAKHFMVEJOA9833-25-74 17:40:00 Test Item Value Reference Range Interpretation Comments Glucose Lvl (test code = Glucose Lvl) 126 70-99 [facility] TexasAdtrkmbIAHDQURNTG5717-78-16 17:40:00 Test Item Value Reference Range Interpretation Comments Basophils # (test code 0.1 See_Comment [Aut omated message] The = Basophils #) system which generated this result tra nsmitted reference range : <=0.2. The reference r nhung was not used to int erpret this result as normal/abnormal . [facility] TexasSxvemdeKEAWCCXYKD0172-08-33 17:40:00 Test Item Value Reference Range Interpretation Comments Eosinophils # (test code 0.3 See_Comment [A utomated message] The = Eosinophils #) system whic h generated this result tra nsmitted reference range : <=0.5. The reference r nhung was not used to int erpret this result as normal/abnormal . [facility] TexasXwxkiphMXDTHSBMUU5249-79-18 17:40:00 Test Item Value Reference Range Interpretation Comments Basophils (test code = 0.7 See_Comment [Aut omated message] The Basophils) system which ge nerated this result tra nsmitted reference range : <=1.0. The reference r nhung was not used to int erpret this result as normal/abnormal . [facility] TexasJnsvpakDEZINFNOCQ5406-66-61 17:40:00 Test Item Value Reference Range Interpretation Comments Segs-Bands # (test code = Segs-Bands #) 12.7 1.5-8.1 [facility] TexasEdcgrnuWATLCNZQHN3273-99-70 17:40:00 Test Item Value Reference Range Interpretation Comments Lymphocytes # (test code = Lymphocytes 0.6 1.0-5.5 #) [facility] TexasXgkkpizKPNXPSFJEW9395-79-60 17:40:00 Test Item Value Reference Range Interpretation Comments Monocytes # (test code 0.7 See_Comment [Aut omated message] The = Monocytes #) system which generated this result tra nsmitted reference range : <=0.8. The reference r nhung was not used to int erpret this result as normal/abnormal . [facility] TexasTkwhstsEIEPMUIFZS6378-54-89 17:40:00 Test Item Value Reference Range Interpretation Comments Plt Morph (test code = Normal (03/31/17 12:40 Plt Morph) PM) [facility] TexasCypxvobWSAKMXUKNQ0431-74-58 17:40:00 Test Item Value Reference Range Interpretation Comments Segs (test code = Segs) 88.3 45.0-75.0 [facility] TexasPjbgjwvLWBROWSTCQ5481-58-54 17:40:00 Test Item Value Reference Range Interpretation Comments Lymphocytes (test code = Lymphocytes) 4.0 20.0-40.0 [facility] TexasDeehuruACREETOPYJ0909-37-47 17:40:00 Test Item Value Reference Range Interpretation Comments Monocytes (test code = Monocytes) 5.0 2.0-12.0 [facility] TexasTstxuwiDRQXPRQJUW7588-54-15 17:40:00 Test Item Value Reference Range Interpretation Comments Eosinophils (test code = 2.0 See_Comment [A utomated message] The Eosinophils) system which ge nerated this result tra nsmitted reference range : <=4.0. The reference r nhung was not used to int erpret this result as normal/abnormal . [facility] TexasKluifvtPLUGAYQQKA0551-32-81 17:40:00 Test Item Value Reference Range Interpretation Comments RBC Morph (test code = Normal (03/31/17 12:40 RBC Morph) PM) [facility] TexasTzdbxiiGQPMTFAJSW8960-47-45 17:40:00 Test Item Value Reference Range Interpretation Comments MPV (test code = MPV) 8.6 7.4-10.4 [facility] TexasAhsnztrVLNSRHAUJV2352-27-99 17:40:00 Test Item Value Reference Range Interpretation Comments MCH (test code = MCH) 29.4 pg 27.0-31.0 [facility] TexasRvkpvfaIAWSSDJRVQ8259-86-51 17:40:00 Test Item Value Reference Range Interpretation Comments RDW (test code = RDW) 15.0 11.5-14.5 [facility] TexasHnajtttCFTKJLYUOK6797-70-68 17:40:00 Test Item Value Reference Range Interpretation Comments MCHC (test code = MCHC) 34.0 32.0-36.0 [facility] TexasRgcqpudKOYYMJMGYW3137-84-03 17:40:00 Test Item Value Reference Range Interpretation Comments Platelet (test code = Platelet) 187 133-450 [facility] TexasNgwpfrhXOGBZESMQN3215-53-42 17:40:00 Test Item Value Reference Range Interpretation Comments WBC (test code = WBC) 14.3 3.7-10.4 [facility] TexasHmxkeacNSXGXJISQZ4901-46-79 17:40:00 Test Item Value Reference Range Interpretation Comments RBC (test code = RBC) 3.04 4.70-6.10 [facility] TexasPpvvzwmRGCDJBPBFW1027-77-72 17:40:00 Test Item Value Reference Range Interpretation Comments MCV (test code = MCV) 86.5 80.0-94.0 [facility] TexasDbechkmSSGQBZQGHC7819-31-23 17:40:00 Test Item Value Reference Range Interpretation Comments Hct (test code = Hct) 26.3 42.0-54.0 [facility] TexasGwamsnaNRZBYBWLSX7226-08-89 17:40:00 Test Item Value Reference Range Interpretation Comments Hgb (test code = Hgb) 8.9 14.0-18.[address] [facility], TxCHEM UFGVP1195-57-16 17:40:00 Test Item Value Reference Range Interpretation Comments Phosphorus (test code = Phosphorus) 3.8 2.5-4.5 [facility] AKQGV0787-05-95 17:40:00 Test Item Value Reference Range Interpretation Comments Magnesium Lvl (test code = Magnesium 1.8 1.8-2.4 Lvl) [facility] CenterHmbikroOJETWQYHWSWQ6102-05-53 17:40:00 Test Item Value Reference Range Interpretation Comments AGAP (test code = AGAP) 13.3 10.0-20.0 [facility] CenterZjaqqddAILGFJEZMAZX7616-26-59 17:40:00 Test Item Value Reference Range Interpretation Comments eGFR (test code = eGFR) 17 [facility] CenterYnzvvulQMMFPVHBKLKE6442-89-78 17:40:00 Test Item Value Reference Range Interpretation Comments BUN (test code = BUN) 52 7-22 [facility] CenterSffxywdEZKHYRHHFRQM5008-97-21 17:40:00 Test Item Value Reference Range Interpretation Comments Chloride Lvl (test code = Chloride Lvl) 98 95-109 [facility] CenterRrgrugrUXGZQAEDUSBY5637-68-81 17:40:00 Test Item Value Reference Range Interpretation Comments CO2 (test code = CO2) 23 24-32 [facility] CenterJhrtoyaTWBFHMUIRBUK1971-88-83 17:40:00 Test Item Value Reference Range Interpretation Comments Creatinine Lvl (test code = Creatinine 3.49 0.50-1.40 Lvl) [facility] CenterBllfvjlZRGRXJJOZMVU2963-45-08 17:40:00 Test Item Value Reference Range Interpretation Comments Sodium Lvl (test code = Sodium Lvl) 130 135-145 [facility] CenterDdrvnhlUPRJFNMFDELW1553-12-05 17:40:00 Test Item Value Reference Range Interpretation Comments Potassium Lvl (test code = Potassium 4.3 3.5-5.1 Lvl) [facility] CenterVgbnbjzALLJXXHQQUJJ8390-55-59 17:40:00 Test Item Value Reference Range Interpretation Comments Calcium Lvl (test code = Calcium Lvl) 8.1 8.5-10.5 [facility] CenterOrlqzcmPGQLPDDZYGSU6622-76-29 17:40:00 Test Item Value Reference Range Interpretation Comments Glucose Lvl (test code = Glucose Lvl) 126 70-99 [facility]GvdqwvsJUREVIJSCW7104-17-90 17:40:00 Test Item Value Reference Range Interpretation Comments Basophils # (test code 0.1 See_Comment [Aut omated message] The = Basophils #) system which generated this result tra nsmitted reference range : <=0.2. The reference r nhung was not used to int erpret this result as normal/abnormal . [facility] TexasTpzfvwlYERDBLFVMR9848-42-90 17:40:00 Test Item Value Reference Range Interpretation Comments Eosinophils # (test code 0.3 See_Comment [A utomated message] The = Eosinophils #) system whic h generated this result tra nsmitted reference range : <=0.5. The reference r nhung was not used to int erpret this result as normal/abnormal . [facility] TexasGoidefmLITFGLALYQ9607-68-37 17:40:00 Test Item Value Reference Range Interpretation Comments Basophils (test code = 0.7 See_Comment [Aut omated message] The Basophils) system which ge nerated this result tra nsmitted reference range : <=1.0. The reference r nhung was not used to int erpret this result as normal/abnormal . [facility] TexasMpesrnrHTTXHKLXTE0012-12-02 17:40:00 Test Item Value Reference Range Interpretation Comments Segs-Bands # (test code = Segs-Bands #) 12.7 1.5-8.1 [facility] TexasVtfwcnrWVBIDHXFYB8521-72-65 17:40:00 Test Item Value Reference Range Interpretation Comments Lymphocytes # (test code = Lymphocytes 0.6 1.0-5.5 #) [facility] TexasEwmrjmrDXMPCRZXJO0884-55-38 17:40:00 Test Item Value Reference Range Interpretation Comments Monocytes # (test code 0.7 See_Comment [Aut omated message] The = Monocytes #) system which generated this result tra nsmitted reference range : <=0.8. The reference r nhung was not used to int erpret this result as normal/abnormal . [facility] TexasOinaqisVFWBORXBBS6683-50-59 17:40:00 Test Item Value Reference Range Interpretation Comments Plt Morph (test code = Normal (03/31/17 12:40 Plt Morph) PM) [facility] TexasKwtuootTWTWHETXEY0438-08-90 17:40:00 Test Item Value Reference Range Interpretation Comments Segs (test code = Segs) 88.3 45.0-75.0 [facility] TexasXsaqcjaIWIDTWJJOY3127-22-38 17:40:00 Test Item Value Reference Range Interpretation Comments Lymphocytes (test code = Lymphocytes) 4.0 20.0-40.0 [facility] TexasOpayyjvBAUCVGGJVD7434-11-37 17:40:00 Test Item Value Reference Range Interpretation Comments Monocytes (test code = Monocytes) 5.0 2.0-12.0 [facility] TexasNfzqoarGTYPRFXCEX0098-35-76 17:40:00 Test Item Value Reference Range Interpretation Comments Eosinophils (test code = 2.0 See_Comment [A utomated message] The Eosinophils) system which ge nerated this result tra nsmitted reference range : <=4.0. The reference r nhung was not used to int erpret this result as normal/abnormal . [facility] TexasEldsfymFFCYGJFXZM1774-19-63 17:40:00 Test Item Value Reference Range Interpretation Comments RBC Morph (test code = Normal (03/31/17 12:40 RBC Morph) PM) [facility] TexasFqmrylwCDCFNGMHCN8142-06-80 17:40:00 Test Item Value Reference Range Interpretation Comments MPV (test code = MPV) 8.6 7.4-10.4 [facility] TexasYohgbziHWKXVKIPFL4546-21-20 17:40:00 Test Item Value Reference Range Interpretation Comments MCH (test code = MCH) 29.4 pg 27.0-31.0 [facility] TexasIeipndfITGZGEVXZZ6844-54-94 17:40:00 Test Item Value Reference Range Interpretation Comments RDW (test code = RDW) 15.0 11.5-14.5 [facility] TexasYuxysqjCOLOEHMBDM1225-08-14 17:40:00 Test Item Value Reference Range Interpretation Comments MCHC (test code = MCHC) 34.0 32.0-36.0 [facility] TexasMynvapnZVGVCXLEQF1218-30-14 17:40:00 Test Item Value Reference Range Interpretation Comments Platelet (test code = Platelet) 187 133-450 [facility] TexasErxzuxkMXEMQPGZIB3552-77-93 17:40:00 Test Item Value Reference Range Interpretation Comments WBC (test code = WBC) 14.3 3.7-10.4 [facility] TexasSxtmigdLCISTRBZUQ0152-07-30 17:40:00 Test Item Value Reference Range Interpretation Comments RBC (test code = RBC) 3.04 4.70-6.10 [facility] TexasXnfuejyQZCWIPLJDJ6639-33-09 17:40:00 Test Item Value Reference Range Interpretation Comments MCV (test code = MCV) 86.5 80.0-94.0 [facility] TexasCerrkbhXIVVSCIPTX1086-97-19 17:40:00 Test Item Value Reference Range Interpretation Comments Hct (test code = Hct) 26.3 42.0-54.0 [facility] TexasKmogogeYWGXQEICDB3989-36-09 17:40:00 Test Item Value Reference Range Interpretation Comments Hgb (test code = Hgb) 8.9 14.0-18.0 [facility] TexasHoiqujeGDTBGICCXB6029-37-17 08:29:00 Test Item Value Reference Range Interpretation Comments Basophils # (test code 0.1 See_Comment [Aut omated message] The = Basophils #) system which generated this result tra nsmitted reference range : <=0.2. The reference r nhung was not used to int erpret this result as normal/abnormal . [facility]2017-10-22 08:29:00 Test Item Value Reference Range Interpretation Comments Ca Norm WB (test code = Ca Norm WB) 1.11 1.05-1.25 [facility]2017-10-22 08:29:00 Test Item Value Reference Range Interpretation Comments Ca Ion WB (test code = Ca Ion WB) 1.13 1.05-1.25 [facility] TexasBslaeqiDPBPYWLOZT0822-15-17 08:29:00 Test Item Value Reference Range Interpretation Comments Basophils # (test code 0.1 See_Comment [Aut omated message] The = Basophils #) system which generated this result tra nsmitted reference range : <=0.2. The reference r nhung was not used to int erpret this result as normal/abnormal . [facility]2017-10-22 08:29:00 Test Item Value Reference Range Interpretation Comments Ca Norm WB (test code = Ca Norm WB) 1.11 1.05-1.25 [facility]2017-10-22 08:29:00 Test Item Value Reference Range Interpretation Comments Ca Ion WB (test code = Ca Ion WB) 1.13 1.05-1.25 [facility] TexasEopfwqzOBAMQWDQBZ4384-91-54 09:27:00 Test Item Value Reference Range Interpretation Comments Anisocyte (test code = 1+ *ABN*(03/29/17 Anisocyte) 4:27 AM) [facility] TexasDbpgysjQXFLVZFJCQ9757-10-64 09:27:00 Test Item Value Reference Range Interpretation Comments Plt Morph (test code = Normal (03/29/17 4:27 Plt Morph) AM) [facility] TexasXwuxdlgQIIDXNIPMO4397-82-60 09:27:00 Test Item Value Reference Range Interpretation Comments Atypical Lymphs (test code = Atypical 0.0 Lymphs) [facility] TexasRzaobnyXNVITMVLYJ4538-90-33 09:27:00 Test Item Value Reference Range Interpretation Comments Metamyelocytes (test code 4.0 See_Comment [ Automated message] = Metamyelocytes) The system which generated this result transmitted ref erence range: <=1.0. T he reference range was not used to int erpret this result as normal/abnormal . [facility] TexasFhefvnaSHFHPTHVHI4487-43-27 09:27:00 Test Item Value Reference Range Interpretation Comments Bands (test code = 0.0 See_Comment [Automat ed message] The Bands) system which ge nerated this result transmit jeremías reference range : <=11.0. The reference r nhung was not used to interpr et this result as rosa l/abnormal. [facility] TexasRgvhcfwGWASDKZTGS7697-98-04 09:27:00 Test Item Value Reference Range Interpretation Comments Anisocyte (test code = 1+ *ABN*(03/29/17 Anisocyte) 4:27 AM) [facility] TexasKilszwyOFMPXOHEII8859-97-51 09:27:00 Test Item Value Reference Range Interpretation Comments Plt Morph (test code = Normal (03/29/17 4:27 Plt Morph) AM) [facility] TexasOexrqajKKNYCTUOCG5693-72-42 09:27:00 Test Item Value Reference Range Interpretation Comments Atypical Lymphs (test code = Atypical 0.0 Lymphs) [facility] TexasQubiegmUAJQXCUZMR6703-84-51 09:27:00 Test Item Value Reference Range Interpretation Comments Metamyelocytes (test code 4.0 See_Comment [ Automated message] = Metamyelocytes) The system which generated this result transmitted ref erence range: <=1.0. T he reference range was not used to int erpret this result as normal/abnormal . [facility] TexasNihznueJAIZLHHVDN2127-98-27 09:27:00 Test Item Value Reference Range Interpretation Comments Bands (test code = 0.0 See_Comment [Automat ed message] The Bands) system which ge nerated this result transmit jeremías reference range : <=11.0. The reference r nhung was not used to interpr et this result as rosa l/abnormal. [facility]2017-10-20 08:28:00 Test Item Value Reference Range Interpretation Comments Globulin (test code = Globulin) 3.7 2.7-4.2 [facility]2017-10-20 08:28:00 Test Item Value Reference Range Interpretation Comments A/G Ratio (test code = A/G Ratio) 0.7 0.7-1.6 [facility]2017-10-20 08:28:00 Test Item Value Reference Range Interpretation Comments B/C Ratio (test code = B/C Ratio) 16 6-25 [facility] TexasKsfvwggQXHBWAWBXS5589-47-08 08:28:00 Test Item Value Reference Range Interpretation Comments Bands (test code = 0.0 See_Comment [Automat ed message] The Bands) system which ge nerated this result transmit jeremías reference range : <=11.0. The reference r nhung was not used to interpr et this result as rosa l/abnormal. [facility] TexasYjulecdFEZUALKDQP0538-37-67 08:28:00 Test Item Value Reference Range Interpretation Comments Atypical Lymphs (test code = Atypical 0.0 Lymphs) [facility] TexasCdlkgqxYCDILKBYMR1429-58-97 08:28:00 Test Item Value Reference Range Interpretation Comments Metamyelocytes (test code 4.0 See_Comment [ Automated message] = Metamyelocytes) The system which generated this result transmitted ref erence range: <=1.0. T he reference range was not used to int erpret this result as normal/abnormal . [facility] TexasYwtuesaGZMPSBSEBW8990-43-27 08:28:00 Test Item Value Reference Range Interpretation Comments Anisocyte (test code = 1+ *ABN*(03/28/17 Anisocyte) 3:28 AM) [facility] TexasIjnbbxbWVIMEZODPQ4523-59-92 08:28:00 Test Item Value Reference Range Interpretation Comments Plt Morph (test code = Normal (03/28/17 3:28 Plt Morph) AM) [facility]2017-10-20 08:28:00 Test Item Value Reference Range Interpretation Comments Alk Phos (test code = Alk Phos) 180 39-136 [facility]2017-10-20 08:28:00 Test Item Value Reference Range Interpretation Comments Bili Total (test code = Bili Total) 0.7 0.2-1.3 [facility]2017-10-20 08:28:00 Test Item Value Reference Range Interpretation Comments AST (test code = AST) 94 See_Comment [Auto mated message] The system which ge nerated this result transmit jeremías reference range : <=37. The reference range was not used to interpr et this result as rosa l/abnormal. [place] 659167-10-20 08:28:00 Test Item Value Reference Range Interpretation Comments ALT (test code = ALT) 85 See_Comment [Auto mated message] The system which ge nerated this result transmit jeremías reference range : <=65. The reference range was not used to interpr et this result as rosa l/abnormal. [facility]2017-10-20 08:28:00 Test Item Value Reference Range Interpretation Comments Albumin Lvl (test code = Albumin Lvl) 2.7 3.5-5.0 [place] 659167-10-20 08:28:00 Test Item Value Reference Range Interpretation Comments Total Protein (test code = Total 6.4 6.4-8.4 Protein) [facility]2017-10-20 08:28:00 Test Item Value Reference Range Interpretation Comments Globulin (test code = Globulin) 3.7 2.7-4.2 [facility]2017-10-20 08:28:00 Test Item Value Reference Range Interpretation Comments A/G Ratio (test code = A/G Ratio) 0.7 0.7-1.6 [place] 659167-10-20 08:28:00 Test Item Value Reference Range Interpretation Comments B/C Ratio (test code = B/C Ratio) 16 6-25 [place] [address]-10-20 08:28:00 Test Item Value Reference Range Interpretation Comments Bands (test code = 0.0 See_Comment [Automat ed message] The Bands) system which ge nerated this result transmit jeremías reference range : <=11.0. The reference r nhung was not used to interpr et this result as rosa l/abnormal. [facility] TexasMuuiswkULOJPBBQCF8350-14-89 08:28:00 Test Item Value Reference Range Interpretation Comments Atypical Lymphs (test code = Atypical 0.0 Lymphs) [address]10-20 08:28:00 Test Item Value Reference Range Interpretation Comments Metamyelocytes (test code 4.0 See_Comment [ Automated message] = Metamyelocytes) The system which generated this result transmitted ref erence range: <=1.0. T he reference range was not used to int erpret this result as normal/abnormal . [facility] TexasJwvgowoEPEHEIEAQF7687-44-90 08:28:00 Test Item Value Reference Range Interpretation Comments Anisocyte (test code = 1+ *ABN*(03/28/17 Anisocyte) 3:28 AM) [facility] TexasIvrzgfyMHSVZCIVBB2248-96-95 08:28:00 Test Item Value Reference Range Interpretation Comments Plt Morph (test code = Normal (03/28/17 3:28 Plt Morph) AM) [facility]2017-10-20 08:28:00 Test Item Value Reference Range Interpretation Comments Alk Phos (test code = Alk Phos) 180 39-136 [facility]2017-10-20 08:28:00 Test Item Value Reference Range Interpretation Comments Bili Total (test code = Bili Total) 0.7 0.2-1.3 [facility]2017-10-20 08:28:00 Test Item Value Reference Range Interpretation Comments AST (test code = AST) 94 See_Comment [Auto mated message] The system which ge nerated this result transmit jeremías reference range : <=37. The reference range was not used to interpr et this result as rosa l/abnormal. [facility]2017-10-20 08:28:00 Test Item Value Reference Range Interpretation Comments ALT (test code = ALT) 85 See_Comment [Auto mated message] The system which ge nerated this result transmit jeremías reference range : <=65. The reference range was not used to interpr et this result as rosa l/abnormal. [facility]2017-10-20 08:28:00 Test Item Value Reference Range Interpretation Comments Albumin Lvl (test code = Albumin Lvl) 2.7 3.5-5.0 [facility]2017-10-20 08:28:00 Test Item Value Reference Range Interpretation Comments Total Protein (test code = Total 6.4 6.4-8.4 Protein) [facility]2017-10-19 07:36:00 Test Item Value Reference Range Interpretation Comments Total Protein (test code = Total 6.1 6.4-8.4 Protein) [place] 659167-10-19 07:36:00 Test Item Value Reference Range Interpretation Comments Globulin (test code = Globulin) 3.6 2.7-4.2 [facility]2017-10-19 07:36:00 Test Item Value Reference Range Interpretation Comments Albumin Lvl (test code = Albumin Lvl) 2.5 3.5-5.0 [facility]2017-10-19 07:36:00 Test Item Value Reference Range Interpretation Comments ALT (test code = ALT) 58 See_Comment [Auto mated message] The system which ge nerated this result transmit jeremías reference range : <=65. The reference range was not used to interpr et this result as rosa l/abnormal. [facility]2017-10-19 07:36:00 Test Item Value Reference Range Interpretation Comments A/G Ratio (test code = A/G Ratio) 0.7 0.7-1.6 [facility]2017-10-19 07:36:00 Test Item Value Reference Range Interpretation Comments AST (test code = AST) 51 See_Comment [Auto mated message] The system which ge nerated this result transmit jeremías reference range : <=37. The reference range was not used to interpr et this result as rosa l/abnormal. [facility]2017-10-19 07:36:00 Test Item Value Reference Range Interpretation Comments Alk Phos (test code = Alk Phos) 156 39-136 [facility]2017-10-19 07:36:00 Test Item Value Reference Range Interpretation Comments Bili Total (test code = Bili Total) 0.5 0.2-1.3 [facility]2017-10-19 07:36:00 Test Item Value Reference Range Interpretation Comments B/C Ratio (test code = B/C Ratio) 18 6-25 [facility]2017-10-19 07:36:00 Test Item Value Reference Range Interpretation Comments Total Protein (test code = Total 6.1 6.4-8.4 Protein) [facility]2017-10-19 07:36:00 Test Item Value Reference Range Interpretation Comments Globulin (test code = Globulin) 3.6 2.7-4.2 [facility]2017-10-19 07:36:00 Test Item Value Reference Range Interpretation Comments Albumin Lvl (test code = Albumin Lvl) 2.5 3.5-5.0 [facility]2017-10-19 07:36:00 Test Item Value Reference Range Interpretation Comments ALT (test code = ALT) 58 See_Comment [Auto mated message] The system which ge nerated this result transmit jeremías reference range : <=65. The reference range was not used to interpr et this result as rosa l/abnormal. [facility]2017-10-19 07:36:00 Test Item Value Reference Range Interpretation Comments A/G Ratio (test code = A/G Ratio) 0.7 0.7-1.6 [facility]2017-10-19 07:36:00 Test Item Value Reference Range Interpretation Comments AST (test code = AST) 51 See_Comment [Auto mated message] The system which ge nerated this result transmit jeremías reference range : <=37. The reference range was not used to interpr et this result as rosa l/abnormal. [facility]2017-10-19 07:36:00 Test Item Value Reference Range Interpretation Comments Alk Phos (test code = Alk Phos) 156 39-136 [facility]2017-10-19 07:36:00 Test Item Value Reference Range Interpretation Comments Bili Total (test code = Bili Total) 0.5 0.2-1.3 [facility]2017-10-19 07:36:00 Test Item Value Reference Range Interpretation Comments B/C Ratio (test code = B/C Ratio) 18 6-25 [facility]Innov[facility] Composites InternationalFIRSTHEALTH MONTGOMERY MEMORIAL [id number] 09:36:00 Test Item Value Reference Range Interpretation Comments Globulin (test code = Globulin) 3.9 2.7-4.2 [facility]2017-10-16 09:36:00 Test Item Value Reference Range Interpretation Comments A/G Ratio (test code = A/G Ratio) 0.7 0.7-1.6 [facility]2017-10-16 09:36:00 Test Item Value Reference Range Interpretation Comments B/C Ratio (test code = B/C Ratio) 26 6-25 [facility]2017-10-16 09:36:00 Test Item Value Reference Range Interpretation Comments Alk Phos (test code = Alk Phos) 180 39-136 [facility]Innov[facility] Composites InternationalFIRSTHEALTH MONTGOMERY MEMORIAL [id number] 09:36:00 Test Item Value Reference Range Interpretation Comments Total Protein (test code = Total 6.7 6.4-8.4 Protein) [facility]2017-10-16 09:36:00 Test Item Value Reference Range Interpretation Comments ALT (test code = ALT) 71 See_Comment [Auto mated message] The system which ge nerated this result transmit jeremías reference range : <=65. The reference range was not used to interpr et this result as rosa l/abnormal. [facility]2017-10-16 09:36:00 Test Item Value Reference Range Interpretation Comments AST (test code = AST) 50 See_Comment [Auto mated message] The system which ge nerated this result transmit jeremías reference range : <=37. The reference range was not used to interpr et this result as rosa l/abnormal. [facility]2017-10-16 09:36:00 Test Item Value Reference Range Interpretation Comments Bili Total (test code = Bili Total) 0.6 0.2-1.3 [facility]2017-10-16 09:36:00 Test Item Value Reference Range Interpretation Comments Albumin Lvl (test code = Albumin Lvl) 2.8 3.5-5.0 [facility]2017-10-16 09:36:00 Test Item Value Reference Range Interpretation Comments Globulin (test code = Globulin) 3.9 2.7-4.2 [facility]2017-10-16 09:36:00 Test Item Value Reference Range Interpretation Comments A/G Ratio (test code = A/G Ratio) 0.7 0.7-1.6 [facility]2017-10-16 09:36:00 Test Item Value Reference Range Interpretation Comments B/C Ratio (test code = B/C Ratio) 26 6-25 [facility]2017-10-16 09:36:00 Test Item Value Reference Range Interpretation Comments Alk Phos (test code = Alk Phos) 180 39-136 [facility]2017-10-16 09:36:00 Test Item Value Reference Range Interpretation Comments Total Protein (test code = Total 6.7 6.4-8.4 Protein) [facility]2017-10-16 09:36:00 Test Item Value Reference Range Interpretation Comments ALT (test code = ALT) 71 See_Comment [Auto mated message] The system which ge nerated this result transmit jeremías reference range : <=65. The reference range was not used to interpr et this result as rosa l/abnormal. [facility] [employer] [id number] 09:36:00 Test Item Value Reference Range Interpretation Comments AST (test code = AST) 50 See_Comment [Auto mated message] The system which ge nerated this result transmit jeremías reference range : <=37. The reference range was not used to interpr et this result as rosa l/abnormal. [facility] [employer] [id number] 09:36:00 Test Item Value Reference Range Interpretation Comments Bili Total (test code = Bili Total) 0.6 0.2-1.3 [facility] [employer] [id number] 09:36:00 Test Item Value Reference Range Interpretation Comments Albumin Lvl (test code = Albumin Lvl) 2.8 3.5-5.0 [facility]cosWorkerBee Virtual Assistants [id number] 05:06:00 Test Item Value Reference Range Interpretation Comments RBC product (test code Product available = RBC product) (03/23/17 12:06 AM) [facility] [employer] BANK [id number] 05:06:00 Test Item Value Reference Range Interpretation Comments RBC product (test code Product available = RBC product) (03/23/17 12:06 AM) [facility] [employer] [id number] 11:55:00 Test Item Value Reference Range Interpretation Comments ABO/Rh (test code = ABO/Rh) O POS [facility] [employer] BANK [id number] 11:55:00 Test Item Value Reference Range Interpretation Comments Antibody Scrn (test Negative (03/22/17 code = Antibody Scrn) 6:55 AM) [facility] [employer] B[facility] [id number] 11:55:00 Test Item Value Reference Range Interpretation Comments ABO/Rh (test code = ABO/Rh) O POS [facility] [employer] BANK [id number] 11:55:00 Test Item Value Reference Range Interpretation Comments Antibody Scrn (test Negative (03/22/17 code = Antibody Scrn) 6:55 AM) [facility] [employer] B[facility] [id number] 11:36:00 Test Item Value Reference Range Interpretation Comments RBC product (test code Product available = RBC product) (03/22/17 6:36 AM) [facility] [id number] 11:36:00 Test Item Value Reference Range Interpretation Comments RBC product (test code Product available = RBC product) (03/22/17 6:36 AM) [facility]annURINE AND LGOOW0436-11-25 10:37:00 Test Item Value Reference Range Interpretation Comments Occult Bld, Fecal Negative (03/22/17 Immunoassay (test code = 5:37 AM) Occult Bld, Fecal Immunoassay) [facility] [place], TxURINE AND [id number] 10:37:00 Test Item Value Reference Range Interpretation Comments Occult Bld, Fecal Negative (03/22/17 Immunoassay (test code = 5:37 AM) Occult Bld, Fecal Immunoassay) [facility]GyzjgiyYLKQRSXOAP2727-78-26 20:27:00 Test Item Value Reference Range Interpretation Comments GBM Ab IgG (test code = GBM Ab IgG) no gt [facility], TxNbehjckSFIBRFRCMW4206-16-75 20:27:00 Test Item Value Reference Range Interpretation Comments GBM Ab IgG (test code = GBM Ab IgG) no gt [facility], TxBcuzvhhRRHLRPEDPA1485-89-64 11:04:00 Test Item Value Reference Range Interpretation Comments Cyc Cit Pep Ab (test code = Cyc Cit Pep no gt Ab) [facility]YywgrneIPDAXVTKDR1456-29-72 11:04:00 Test Item Value Reference Range Interpretation Comments Proteinase-3 Antibody (test code = no gt Proteinase-3 Antibody) [facility], TxTxjdiyeJSKMVJTKQH8369-62-55 11:04:00 Test Item Value Reference Range Interpretation Comments Proteinase-3 Antibody (test code = no gt Proteinase-3 Antibody) [facility], TxTmqlhinSOOOHLIVXM7626-20-31 11:04:00 Test Item Value Reference Range Interpretation Comments Myeloperoxidase Ab (test code = no gt Myeloperoxidase Ab) [facility], TxGvnxfowOTYEORFYML1779-05-39 11:04:00 Test Item Value Reference Range Interpretation Comments C-ANCA (test code = Negative (03/20/17 6:04 C-ANCA) AM) [facility], TxMnhavjtJORCGXDMSO1351-53-80 11:04:00 Test Item Value Reference Range Interpretation Comments P-ANCA (test code = Negative (03/20/17 6:04 P-ANCA) AM) [facility], TxSzbsoonRAJIIDYGWG0739-79-22 11:04:00 Test Item Value Reference Range Interpretation Comments SS-B (La) Ab (test code = SS-B (La) Ab) no gt [facility] MarcosUjklqcbRQDLTLCBIC7540-34-74 11:04:00 Test Item Value Reference Range Interpretation Comments SS-A (Ro) Ab (test code = SS-A (Ro) Ab) no gt [facility] FiljmgyWFCGHRBCFJ6298-26-57 11:04:00 Test Item Value Reference Range Interpretation Comments Cyc Cit Pep Ab (test code = Cyc Cit Pep no gt Ab) [facility]cosWzuzleuXRPHNAVHGW1229-44-07 11:04:00 Test Item Value Reference Range Interpretation Comments Proteinase-3 Antibody (test code = no gt Proteinase-3 Antibody) [facility]cosWnsvfvzURKWKCEXEO6815-38-49 11:04:00 Test Item Value Reference Range Interpretation Comments Proteinase-3 Antibody (test code = no gt Proteinase-3 Antibody) [facility]cosEgxmeljDCTGRUOCWX6889-59-80 11:04:00 Test Item Value Reference Range Interpretation Comments Myeloperoxidase Ab (test code = no gt Myeloperoxidase Ab) [facility]cosQtmulitOISRTTRZOJ7004-53-52 11:04:00 Test Item Value Reference Range Interpretation Comments C-ANCA (test code = Negative (03/20/17 6:04 C-ANCA) AM) [facility]cosUvitdmrZGKTLQXYSQ7118-06-27 11:04:00 Test Item Value Reference Range Interpretation Comments P-ANCA (test code = Negative (03/20/17 6:04 P-ANCA) AM) [facility]cosZjxwrkuNBMCCHCCBC9201-55-43 11:04:00 Test Item Value Reference Range Interpretation Comments SS-B (La) Ab (test code = SS-B (La) Ab) no gt [facility]cosUmxwwilYJQAFIKOZD8548-92-17 11:04:00 Test Item Value Reference Range Interpretation Comments SS-A (Ro) Ab (test code = SS-A (Ro) Ab) no gt [facility]cosannCHEM [id number] 01:29:00 Test Item Value Reference Range Interpretation Comments LDH (test code = LDH) 292 98-[address] [facility], TxUgieiffATTHVVNMVX9236-12-49 01:29:00 Test Item Value Reference Range Interpretation Comments Sed Rate (test code = 90 See_Comment [Auto mated message] The Sed Rate) system which ge nerated this result transmit jeremías reference range : <=15. The reference range was not used to interpr et this result as rosa l/abnormal. [facility] TexasOihepynTLTLGXHTSD9329-69-40 01:29:00 Test Item Value Reference Range Interpretation Comments PT (test code = PT) 15.7 s 12.0-14.7 [facility] TexasTmndfhzCCWEOYIYGU4568-55-46 01:29:00 Test Item Value Reference Range Interpretation Comments INR (test code = INR) 1.22 0.85-1.17 [facility]JcjtgzoBKCBYWPXMD3151-36-81 01:29:00 Test Item Value Reference Range Interpretation Comments C-REACTIVE PROTEIN (test code = 112.0 C-REACTIVE PROTEIN) [facility]2017-10-12 01:29:00 Test Item Value Reference Range Interpretation Comments LDH (test code = LDH) 292 98-192 [facility] TexasMzrsaqoAUHPPURCWA7066-86-33 01:29:00 Test Item Value Reference Range Interpretation Comments Sed Rate (test code = 90 See_Comment [Auto mated message] The Sed Rate) system which ge nerated this result transmit jeremías reference range : <=15. The reference range was not used to interpr et this result as rosa l/abnormal. [facility] TexasPzeeexiZBEZGJFSDK7229-17-25 01:29:00 Test Item Value Reference Range Interpretation Comments PT (test code = PT) 15.7 s 12.0-14.7 [facility] TexasAfdegwaBRSHBMRMMY1309-42-02 01:29:00 Test Item Value Reference Range Interpretation Comments INR (test code = INR) 1.22 0.85-1.17 [facility]AifnwkfTXSHVXMPNQ2881-23-39 01:29:00 Test Item Value Reference Range Interpretation Comments C-REACTIVE PROTEIN (test code = 112.0 C-REACTIVE PROTEIN) [facility]VfpmvwyWMUKTLMLMG1183-46-45 21:58:00 Test Item Value Reference Range Interpretation Comments Myeloperoxidase Ab (test code = no gt Myeloperoxidase Ab) [facility]VnlmrrqZMXPSBQUXW2117-95-57 21:58:00 Test Item Value Reference Range Interpretation Comments C3 Complement (test code = C3 66 88-201 Complement) [facility] HendersonTkmudzfYQVQDLTOME2356-26-64 21:58:00 Test Item Value Reference Range Interpretation Comments C4 Complement (test code = C4 14 16-47 Complement) [facility] HendersonDmfzrnwUUGDBIHZCM1109-51-11 21:58:00 Test Item Value Reference Range Interpretation Comments SS-B (La) Ab (test code = SS-B (La) Ab) no gt [facility], TxJjtxboyFKHMZIOEYT1053-05-53 21:58:00 Test Item Value Reference Range Interpretation Comments SS-A (Ro) Ab (test code = SS-A (Ro) Ab) no gt [facility], TxAlkixlcHYJPWMGXZA3820-52-05 21:58:00 Test Item Value Reference Range Interpretation Comments RF Qnt (test code = 32 See_Comment [Automa jeremías message] The RF Qnt) system which ge nerated this result transmit jeremías reference range : <=20. The reference range was not used to interpr et this result as rosa l/abnormal. [facility], TxKxegibrLNNHNCQUZT5943-69-59 21:58:00 Test Item Value Reference Range Interpretation Comments Cyc Cit Pep Ab (test code = Cyc Cit Pep no gt Ab) [facility], TxQjatfoyCFGOFTNYZM6798-39-27 21:58:00 Test Item Value Reference Range Interpretation Comments Myeloperoxidase Ab (test code = no gt Myeloperoxidase Ab) [facility]GmbhtyyNRPGZVFDYY3310-08-22 21:58:00 Test Item Value Reference Range Interpretation Comments C3 Complement (test code = C3 66 88-201 Complement) [facility], TxYfojtvuFAKZBYZOXS8674-67-86 21:58:00 Test Item Value Reference Range Interpretation Comments C4 Complement (test code = C4 14 16-47 Complement) [facility], TxGnomqkxUYYTITPEFZ3931-05-78 21:58:00 Test Item Value Reference Range Interpretation Comments SS-B (La) Ab (test code = SS-B (La) Ab) no gt [facility], TxYrvktdsJLAEQMFXWN5593-98-14 21:58:00 Test Item Value Reference Range Interpretation Comments SS-A (Ro) Ab (test code = SS-A (Ro) Ab) no gt [facility], TxPbknbgjOVZJNOSICL5685-69-19 21:58:00 Test Item Value Reference Range Interpretation Comments RF Qnt (test code = 32 See_Comment [Automa jeremías message] The RF Qnt) system which ge nerated this result transmit jeremías reference range : <=20. The reference range was not used to interpr et this result as rosa l/abnormal. [facility], TxKyrdftxTCKFRHUNCV8689-09-59 21:58:00 Test Item Value Reference Range Interpretation Comments Cyc Cit Pep Ab (test code = Cyc Cit Pep no gt Ab) [facility], TxHimseldRGXIIKVNKE9660-99-72 15:08:00 Test Item Value Reference Range Interpretation Comments Anisocyte (test code = 1+ *ABN*(03/19/17 Anisocyte) 10:08 AM) [facility], TxEcgkwktKECSPVKBGT4462-19-88 15:08:00 Test Item Value Reference Range Interpretation Comments Anisocyte (test code = 1+ *ABN*(03/19/17 Anisocyte) 10:08 AM) [facility] BANK WVWBBIR2787-17-18 08:47:00 Test Item Value Reference Range Interpretation Comments Eluate Int (test code = Eluate Int) See Note [facility] BANK [id number] 08:47:00 Test Item Value Reference Range Interpretation Comments Path STACEY (test Transfusion Medicine code = Path STACEY) Physician Services Patient is a 72yo M with history of CKD stage III, VINNIE on CPAP at night, HTN, DM, HLD, remote CVA admitted for acute hypoxemic respiratory failure. This patient has a positive Direct Antiglobulin Test (STACEY) with IgG detected on circulating RBC s; no complement fixation is noted. The eluate prepared from the RBC s is non-reactive. Positive STACEY may be seen in up to 16% of hospitalized patients and be idiopathic in nature. It is also associated with various autoimmune disorders, hypergammaglobulinemia, certain malignancies, and following administration of specific medications. Clinical correlation is required. RBC's with a positive STACEY can be expected to have decreased in vivo survival. The patient s electronic medical record has been reviewed for relevant information. I have reviewed the test results and concur with the resident, Dr. Desiree Peña's interpretation. CPT: 66759-RD [facility] [id number] 08:47:00 Test Item Value Reference Range Interpretation Comments STACEY Gel Int (test Positive (03/19/17 3:47 code = STACEY Gel Int) AM) [facility] [id number] 08:47:00 Test Item Value Reference Range Interpretation Comments C3 Int (test code = Negative (03/19/17 3:47 C3 Int) AM) [facility] [id number] 08:47:00 Test Item Value Reference Range Interpretation Comments Procalcitonin Lvl (test 2.49 See_Comment [Au tomated message] code = Procalcitonin Lvl) Th e system which generated this result transmitted ref erence range: <=0.10. The reference range was not used to interpr et this result as normal/abnormal . [facility], TxCHEM RZDFG2413-31-37 08:47:00 Test Item Value Reference Range Interpretation Comments LDH (test code = LDH) 286 98-[address] [facility], TxPfqczebOGXSSSZVAA2986-01-39 08:47:00 Test Item Value Reference Range Interpretation Comments Sed Rate (test code = 75 See_Comment [Auto mated message] The Sed Rate) system which ge nerated this result transmit jeremías reference range : <=15. The reference range was not used to interpr et this result as rosa l/abnormal. [facility], TxShaccmuHAPHJXDGEC1727-79-05 08:47:00 Test Item Value Reference Range Interpretation Comments C-REACTIVE PROTEIN (test code = 121.0 C-REACTIVE PROTEIN) [facility], TxTqjxesqCZOLFOXRTT7959-29-26 08:47:00 Test Item Value Reference Range Interpretation Comments SS-B (La) Ab (test code = SS-B (La) Ab) no gt [facility] MarcosQqoumliINOVYHJPPQ5731-41-38 08:47:00 Test Item Value Reference Range Interpretation Comments SS-A (Ro) Ab (test code = SS-A (Ro) Ab) no gt [facility] MarcosDriwbdkSRDJPHLMZJ5791-41-26 08:47:00 Test Item Value Reference Range Interpretation Comments C4 Complement (test code = C4 14 16-47 Complement) [facility], TxWnkmbhxCDMWQGUSGJ9856-67-74 08:47:00 Test Item Value Reference Range Interpretation Comments C3 Complement (test code = C3 67 88-201 Complement) [facility], TxOtautifVJZFGHIKYB8456-78-31 08:47:00 Test Item Value Reference Range Interpretation Comments Cryoglob (test code = Negative (03/19/17 Cryoglob) 3:47 AM) [facility], TxCxzmhghKTLJGDIMVX7266-94-28 08:47:00 Test Item Value Reference Range Interpretation Comments Haptoglobin (test code = Haptoglobin) 109 16-200 [facility] MarcosCzxiyumYMKHTBVLGX1753-02-78 08:47:00 Test Item Value Reference Range Interpretation Comments Proteinase-3 Antibody (test code = no gt Proteinase-3 Antibody) [facility], TxPpxekpvQDYTSKWOMP4301-96-13 08:47:00 Test Item Value Reference Range Interpretation Comments Myeloperoxidase Ab (test code = no gt Myeloperoxidase Ab) [facility], TxTouvmtaULVHVAWPIR0966-54-34 08:47:00 Test Item Value Reference Range Interpretation Comments P-ANCA (test code = Negative (03/19/17 3:47 P-ANCA) AM) [facility], TxRbbbefpOVTBFUXSXH1075-47-78 08:47:00 Test Item Value Reference Range Interpretation Comments C-ANCA (test code = Negative (03/19/17 3:47 C-ANCA) AM) [facility], TxOinqogmRTIYVCRQRA1271-08-61 08:47:00 Test Item Value Reference Range Interpretation Comments Cyc Cit Pep Ab (test code = Cyc Cit Pep no gt Ab) [facility], TxBvpuomuKLZDLWEVZI6638-91-09 08:47:00 Test Item Value Reference Range Interpretation Comments RF Qnt (test code = 33 See_Comment [Automa jeremías message] The RF Qnt) system which ge nerated this result transmit jeremías reference range : <=20. The reference range was not used to interpr et this result as rosa l/abnormal. [facility] SXBEXWW3919-56-83 08:47:00 Test Item Value Reference Range Interpretation Comments STACEY Gel Int (test Positive (03/19/17 3:47 code = STACEY Gel Int) AM) [facility], TxNatero [facility] [id number] 08:47:00 Test Item Value Reference Range Interpretation Comments C3 Int (test code = Negative (03/19/17 3:47 C3 Int) AM) [facility], [employer] AHTZL6504-01-84 08:47:00 Test Item Value Reference Range Interpretation Comments Procalcitonin Lvl (test 2.49 See_Comment [Au tomated message] code = Procalcitonin Lvl) Th e system which generated this result transmitted ref erence range: <=0.10. The reference range was not used to interpr et this result as normal/abnormal . [facility], [employer] SQZZZ4398-86-86 08:47:00 Test Item Value Reference Range Interpretation Comments LDH (test code = LDH) 286 98-[address] [facility], TxVqhjhsvYZNWQDLTII6085-21-32 08:47:00 Test Item Value Reference Range Interpretation Comments Sed Rate (test code = 75 See_Comment [Auto mated message] The Sed Rate) system which ge nerated this result transmit jeremías reference range : <=15. The reference range was not used to interpr et this result as rosa l/abnormal. [facility]XdyrbueATAYCXHVTX3797-75-94 08:47:00 Test Item Value Reference Range Interpretation Comments C-REACTIVE PROTEIN (test code = 121.0 C-REACTIVE PROTEIN) [facility]MyjktcpAEJSRLTHNV0514-65-11 08:47:00 Test Item Value Reference Range Interpretation Comments SS-B (La) Ab (test code = SS-B (La) Ab) no gt [facility] HendersonTbitiwoVWGGGEHYJB1849-98-45 08:47:00 Test Item Value Reference Range Interpretation Comments SS-A (Ro) Ab (test code = SS-A (Ro) Ab) no gt [facility] HendersonRpygbouGMTWGKRUBC6966-87-51 08:47:00 Test Item Value Reference Range Interpretation Comments C4 Complement (test code = C4 14 16-47 Complement) [facility] HendersonDunjfxdZDRDXKOLHP3409-04-84 08:47:00 Test Item Value Reference Range Interpretation Comments C3 Complement (test code = C3 67 88-201 Complement) [facility] HendersonVgtzpewDPXNNYNSAR2340-82-56 08:47:00 Test Item Value Reference Range Interpretation Comments Cryoglob (test code = Negative (03/19/17 Cryoglob) 3:47 AM) [facility] HendersonNemgmvmLPMRBGCECS3714-38-27 08:47:00 Test Item Value Reference Range Interpretation Comments Haptoglobin (test code = Haptoglobin) 109 16-200 [facility]QiulsbvIYETXSAGOZ5689-26-81 08:47:00 Test Item Value Reference Range Interpretation Comments Proteinase-3 Antibody (test code = no gt Proteinase-3 Antibody) [facility] HendersonSzinkboACHTIYWEKW9371-91-84 08:47:00 Test Item Value Reference Range Interpretation Comments Myeloperoxidase Ab (test code = no gt Myeloperoxidase Ab) [facility] HendersonMaqeujyTABXGLKBBN7768-96-01 08:47:00 Test Item Value Reference Range Interpretation Comments P-ANCA (test code = Negative (03/19/17 3:47 P-ANCA) AM) [facility] HendersonRmhautoNJFUZSZSOS5462-76-80 08:47:00 Test Item Value Reference Range Interpretation Comments C-ANCA (test code = Negative (03/19/17 3:47 C-ANCA) AM) [facility] [id number] 08:47:00 Test Item Value Reference Range Interpretation Comments Cyc Cit Pep Ab (test code = Cyc Cit Pep no gt Ab) [id number] 08:47:00 Test Item Value Reference Range Interpretation Comments RF Qnt (test code = 33 See_Comment [Automa jeremías message] The RF Qnt) system which ge nerated this result transmit jeremías reference range : <=20. The reference range was not used to interpr et this result as rosa l/abnormal. [facility] [employer]SeeWhy [id number] 08:47:00 Test Item Value Reference Range Interpretation Comments Eluate Int (test code = Eluate Int) See Note [facility] [employer]Why [id number] 08:47:00 Test Item Value Reference Range Interpretation Comments Path STACEY (test Transfusion Medicine code = Path STACEY) Physician Services Patient is a 72yo M with history of CKD stage III, VINNIE on CPAP at night, HTN, DM, HLD, remote CVA admitted for acute hypoxemic respiratory failure. This patient has a positive Direct Antiglobulin Test (STACEY) with IgG detected on circulating RBC s; no complement fixation is noted. The eluate prepared from the RBC s is non-reactive. Positive STACEY may be seen in up to 16% of hospitalized patients and be idiopathic in nature. It is also associated with various autoimmune disorders, hypergammaglobulinemia, certain malignancies, and following administration of specific medications. Clinical correlation is required. RBC's with a positive STACEY can be expected to have decreased in vivo survival. The patient s electronic medical record has been reviewed for relevant information. I have reviewed the test results and concur with the resident, Dr. Desiree Peña's interpretation. CPT: 57784-AE [facility] [place], [employer] [id number] 01:30:00 Test Item Value Reference Range Interpretation Comments Crystal BF Type (test Synovial (03/18/17 8:30 code = Crystal BF PM) Type) [facility], [employer] [id number] 01:30:00 Test Item Value Reference Range Interpretation Comments Crystal BF (test code = Cobb Na Urate Crystal BF) *ABN*(03/18/17 8:30 PM) [facility], [employer] [id number] 01:30:00 Test Item Value Reference Range Interpretation Comments RBC BF (test code = RBC BF) [id number] [facility] [place], [employer] [id number] 01:30:00 Test Item Value Reference Range Interpretation Comments Supernat BF (test code = Red *ABN*(03/18/17 Supernat BF) 8:30 PM) [facility] [place], [employer] [id number] 01:30:00 Test Item Value Reference Range Interpretation Comments WBC BF (test code = WBC BF) [address] [facility] [id number] 01:30:00 Test Item Value Reference Range Interpretation Comments Clarity BF (test code = Marked *ABN*(03/18/17 Clarity BF) 8:30 PM) [facility] [id number] 01:30:00 Test Item Value Reference Range Interpretation Comments Color BF (test code = Red *ABN*(03/18/17 Color BF) 8:30 PM) [facility] [id number] 01:30:00 Test Item Value Reference Range Interpretation Comments Macrophage BF (test code = Macrophage 2 BF) [facility] [id number] 01:30:00 Test Item Value Reference Range Interpretation Comments CellCnt BF Type (test Synovial (03/18/17 8:30 code = CellCnt BF PM) Type) [facility] [id number] 01:30:00 Test Item Value Reference Range Interpretation Comments Segs BF (test code = Segs BF) 97 [facility] [id number] 01:30:00 Test Item Value Reference Range Interpretation Comments Lymph BF (test code = Lymph BF) 1 [facility] [id number] 01:30:00 Test Item Value Reference Range Interpretation Comments UA Sq Epi (test code = UA Sq Epi) RARE [facility] [id number] 01:30:00 Test Item Value Reference Range Interpretation Comments UA Urobilinogen (test code = UA <=1.0 mg/dL 0.1-1.0 Urobilinogen) [facility] [id number] 01:30:00 Test Item Value Reference Range Interpretation Comments Micro? (test code = Performed (03/18/17 8:30 Micro?) PM) [facility] [id number] 01:30:00 Test Item Value Reference Range Interpretation Comments UA Spec Grav (test code = UA Spec Grav) 1.008 [facility] [id number] 01:30:00 Test Item Value Reference Range Interpretation Comments UA Turbidity (test code = Clear (03/18/17 8:30 UA Turbidity) PM) [facility] [id number] 01:30:00 Test Item Value Reference Range Interpretation Comments UA Color (test code = Yellow *NA*(03/18/17 UA Color) 8:30 PM) [facility] AND [id number] 01:30:00 Test Item Value Reference Range Interpretation Comments UA Amorph Christel (test code = UA Few /HPF Amorph Christel) [facility] AND [id number] 01:30:00 Test Item Value Reference Range Interpretation Comments UA Mucus (test code = UA Mucus) Few /LPF [facility] AND [id number] 01:30:00 Test Item Value Reference Range Interpretation Comments UA WBC (test code = 1 See_Comment [Automa jeremías message] The UA WBC) system which ge nerated this result transmit jeremías reference range : <=5. The reference range was not used to interpr et this result as rosa l/abnormal. [facility] AND [id number] 01:30:00 Test Item Value Reference Range Interpretation Comments UA Leuk Est (test Negative (03/18/17 8:30 code = UA Leuk Est) PM) [facility] AND [id number] 01:30:00 Test Item Value Reference Range Interpretation Comments UA Nitrite (test code Negative (03/18/17 8:30 = UA Nitrite) PM) [facility] AND [id number] 01:30:00 Test Item Value Reference Range Interpretation Comments UA Bili (test code = Negative *NA*(03/18/17 UA Bili) 8:30 PM) [facility] AND [id number] 01:30:00 Test Item Value Reference Range Interpretation Comments UA Protein (test code = UA Protein) 100 mg/dL [facility] AND [id number] 01:30:00 Test Item Value Reference Range Interpretation Comments UA pH (test code = UA pH) 6.0 5.0-8.0 [facility] AND [id number] 01:30:00 Test Item Value Reference Range Interpretation Comments UA Ketones (test code = UA Negative mg/dL Ketones) [facility] AND [id number] 01:30:00 Test Item Value Reference Range Interpretation Comments UA Glucose (test code = UA Negative mg/dL Glucose) [facility] AND [id number] 01:30:00 Test Item Value Reference Range Interpretation Comments UA RBC (test code = 3 See_Comment [Automa jeremías message] The UA RBC) system which ge nerated this result transmit jeremías reference range : <=2. The reference range was not used to interpr et this result as rosa l/abnormal. [facility] AND [id number] 01:30:00 Test Item Value Reference Range Interpretation Comments UA Blood (test code = Small *ABN*(03/18/17 UA Blood) 8:30 PM) [facility]2017-10-11 01:30:00 Test Item Value Reference Range Interpretation Comments U Creatinine (test code = U Creatinine) 43.90 [facility]2017-10-11 01:30:00 Test Item Value Reference Range Interpretation Comments U Protein (test code = U Protein) 147.9 [facility]2017-10-11 01:30:00 Test Item Value Reference Range Interpretation Comments U Prot/Creat (test code = U Prot/Creat) 3.4 [facility]2017-10-11 01:30:00 Test Item Value Reference Range Interpretation Comments U Protein (test code = U Protein) 147.9 [facility]2017-10-11 01:30:00 Test Item Value Reference Range Interpretation Comments U Creatinine (test code = U Creatinine) 43.90 [facility]2017-10-11 01:30:00 Test Item Value Reference Range Interpretation Comments U Prot/Creat (test code = U Prot/Creat) 3.4 [facility]2017-10-11 01:30:00 Test Item Value Reference Range Interpretation Comments Crystal BF Type (test Synovial (03/18/17 8:30 code = Crystal BF PM) Type) [facility]2017-10-11 01:30:00 Test Item Value Reference Range Interpretation Comments Crystal BF (test code = Cobb Na Urate Crystal BF) *ABN*(03/18/17 8:30 PM) [facility]2017-10-11 01:30:00 Test Item Value Reference Range Interpretation Comments RBC BF (test code = RBC BF) [id number] [facility]2017-10-11 01:30:00 Test Item Value Reference Range Interpretation Comments Supernat BF (test code = Red *ABN*(03/18/17 Supernat BF) 8:30 PM) [facility] [id number] 01:30:00 Test Item Value Reference Range Interpretation Comments WBC BF (test code = WBC BF) [address] [facility] [id number] 01:30:00 Test Item Value Reference Range Interpretation Comments Clarity BF (test code = Marked *ABN*(03/18/17 Clarity BF) 8:30 PM) [facility] [id number] 01:30:00 Test Item Value Reference Range Interpretation Comments Color BF (test code = Red *ABN*(03/18/17 Color BF) 8:30 PM) [facility] [id number] 01:30:00 Test Item Value Reference Range Interpretation Comments Macrophage BF (test code = Macrophage 2 BF) [facility] [id number] 01:30:00 Test Item Value Reference Range Interpretation Comments CellCnt BF Type (test Synovial (03/18/17 8:30 code = CellCnt BF PM) Type) [facility] [id number] 01:30:00 Test Item Value Reference Range Interpretation Comments Segs BF (test code = Segs BF) 97 [facility] [id number] 01:30:00 Test Item Value Reference Range Interpretation Comments Lymph BF (test code = Lymph BF) 1 [facility] [id number] 01:30:00 Test Item Value Reference Range Interpretation Comments UA Sq Epi (test code = UA Sq Epi) RARE [facility] [id number] 01:30:00 Test Item Value Reference Range Interpretation Comments UA Urobilinogen (test code = UA <=1.0 mg/dL 0.1-1.0 Urobilinogen) [facility] [id number] 01:30:00 Test Item Value Reference Range Interpretation Comments Micro? (test code = Performed (03/18/17 8:30 Micro?) PM) [facility] [id number] 01:30:00 Test Item Value Reference Range Interpretation Comments UA Spec Grav (test code = UA Spec Grav) 1.008 [facility] [id number] 01:30:00 Test Item Value Reference Range Interpretation Comments UA Turbidity (test code = Clear (03/18/17 8:30 UA Turbidity) PM) [facility] AND [id number] 01:30:00 Test Item Value Reference Range Interpretation Comments UA Color (test code = Yellow *NA*(03/18/17 UA Color) 8:30 PM) [facility] AND [id number] 01:30:00 Test Item Value Reference Range Interpretation Comments UA Amorph Christel (test code = UA Few /HPF Amorph Christel) [facility] AND [id number] 01:30:00 Test Item Value Reference Range Interpretation Comments UA Mucus (test code = UA Mucus) Few /LPF [facility] AND [id number] 01:30:00 Test Item Value Reference Range Interpretation Comments UA WBC (test code = 1 See_Comment [Automa jeremías message] The UA WBC) system which ge nerated this result transmit jeremías reference range : <=5. The reference range was not used to interpr et this result as rosa l/abnormal. [facility] AND [id number] 01:30:00 Test Item Value Reference Range Interpretation Comments UA Leuk Est (test Negative (03/18/17 8:30 code = UA Leuk Est) PM) [facility] AND [id number] 01:30:00 Test Item Value Reference Range Interpretation Comments UA Nitrite (test code Negative (03/18/17 8:30 = UA Nitrite) PM) [facility] AND [id number] 01:30:00 Test Item Value Reference Range Interpretation Comments UA Bili (test code = Negative *NA*(03/18/17 UA Bili) 8:30 PM) [facility] AND [id number] 01:30:00 Test Item Value Reference Range Interpretation Comments UA Protein (test code = UA Protein) 100 mg/dL [facility] AND [id number] 01:30:00 Test Item Value Reference Range Interpretation Comments UA pH (test code = UA pH) 6.0 5.0-8.0 [facility] AND [id number] 01:30:00 Test Item Value Reference Range Interpretation Comments UA Ketones (test code = UA Negative mg/dL Ketones) [facility] AND [id number] 01:30:00 Test Item Value Reference Range Interpretation Comments UA Glucose (test code = UA Negative mg/dL Glucose) [facility] AND [id number] 01:30:00 Test Item Value Reference Range Interpretation Comments UA RBC (test code = 3 See_Comment [Automa jeremías message] The UA RBC) system which ge nerated this result transmit jeremías reference range : <=2. The reference range was not used to interpr et this result as rosa l/abnormal. [facility] AND [id number] 01:30:00 Test Item Value Reference Range Interpretation Comments UA Blood (test code = Small *ABN*(03/18/17 UA Blood) 8:30 PM) [facility] [id number] 01:30:00 Test Item Value Reference Range Interpretation Comments U Creatinine (test code = U Creatinine) 43.90 [facility]2017-10-11 01:30:00 Test Item Value Reference Range Interpretation Comments U Protein (test code = U Protein) 147.9 [facility]2017-10-11 01:30:00 Test Item Value Reference Range Interpretation Comments U Prot/Creat (test code = U Prot/Creat) 3.4 [facility]2017-10-11 01:30:00 Test Item Value Reference Range Interpretation Comments U Protein (test code = U Protein) 147.9 [facility]2017-10-11 01:30:00 Test Item Value Reference Range Interpretation Comments U Creatinine (test code = U Creatinine) 43.90 [facility]2017-10-11 01:30:00 Test Item Value Reference Range Interpretation Comments U Prot/Creat (test code = U Prot/Creat) 3.[address] [facility], TxCHEM [id number] 09:06:00 Test Item Value Reference Range Interpretation Comments Procalcitonin Lvl (test 2.12 See_Comment [Au tomated message] code = Procalcitonin Lvl) Th e system which generated this result transmitted ref erence range: <=0.10. The reference range was not used to interpr et this result as normal/abnormal . [facility], [id number] 09:06:00 Test Item Value Reference Range Interpretation Comments Retic Auto (test code = Retic Auto) 1.4 0.5-1.5 [id number] 09:06:00 Test Item Value Reference Range Interpretation Comments PB Smear Path (test Peripheral blood smear code = PB Smear examination; - Normocytic Path) anemia with anisocytosis, polychromasia. - Lymphopenia - Platelets are decreased with few giant form. No platelet clump seen. Clinical correlation is suggested. CPT [address] [facility], [id number] 09:06:00 Test Item Value Reference Range Interpretation Comments HIV Ag/Ab 4th Gen Negative *NA*(03/18/17 (test code = HIV 4:06 AM) Ag/Ab 4th Gen) [facility], [id number] 09:06:00 Test Item Value Reference Range Interpretation Comments Hep B Core Ab (test Negative *NA*(03/18/17 code = Hep B Core Ab) 4:06 AM) [facility], [id number] 09:06:00 Test Item Value Reference Range Interpretation Comments Albumin (SPE) (test code = Albumin 2.81 3.57-5.55 (SPE)) [facility], [id number] 09:06:00 Test Item Value Reference Range Interpretation Comments Gamma % (test code = Gamma %) 19.0 11.1-18.[address] [facility], [id number] 09:06:00 Test Item Value Reference Range Interpretation Comments Alpha 2 Glob (test code = Alpha 2 Glob) 0.61 0.45-1.[address] [facility], [id number] 09:06:00 Test Item Value Reference Range Interpretation Comments Alpha 2 % (test code = Alpha 2 %) 10.2 7.0-11.[address] [facility], TxKjobeiqBNODIVBSES2472-01-03 09:06:00 Test Item Value Reference Range Interpretation Comments Alpha 1 % (test code = Alpha 1 %) 10.6 2.8-4.[address] [facility], [id number] 09:06:00 Test Item Value Reference Range Interpretation Comments Beta % (test code = Beta %) 13.4 7.8-13.[address] [facility], TxTqnnrgxCFUEDPTQPE1987-05-44 09:06:00 Test Item Value Reference Range Interpretation Comments Albumin % (test code = Albumin %) 46.8 55.8-66.[address] [facility], [id number] 09:06:00 Test Item Value Reference Range Interpretation Comments Beta Glob (test code = Beta Glob) 0.80 0.50-1.15 [facility]fohdntRDPXKWFDSZ4256-03-54 09:06:00 Test Item Value Reference Range Interpretation Comments Gamma Glob (test code = Gamma Glob) 1.14 0.71-1.57 [facility]cosExqzxuhXQAVEVEDYO8486-84-21 09:06:00 Test Item Value Reference Range Interpretation Comments Alpha 1 Glob (test code = Alpha 1 Glob) 0.64 0.18-0.41 [facility]cosMgmjjtbLXUCQITROL7576-35-02 09:06:00 Test Item Value Reference Range Interpretation Comments Tot Prot (SPE) (test code = Tot Prot 6.0 6.4-8.4 (SPE)) [facility], TxEzrskoeLBUFQXHKWZ8731-02-65 09:06:00 Test Item Value Reference Range Interpretation Comments SPE Interp (test Capillary electrophoresis code = SPE Interp) demonstrates a distortion of the gamma distribution curve. This requires further evaluation by serum and 24 hr urine immunofixation.As there is no definitive peak, quantification is not possible. Total protein level is reduced. Serum protein electrophoresis shows reduced albumin level with increase in the alpha-1 globulin fraction. These findings are otherwise consistent with protein loss and acute inflammation. Relevant medical information in the EMR was reviewed. I have personally reviewed the test results and concur with the resident's interpretation. CPT 47829-UB [facility], [id number] 09:06:00 Test Item Value Reference Range Interpretation Comments VENKAT (test code = VENKAT) Negative (03/18/17 4:06 AM) [facility], [id number] 09:06:00 Test Item Value Reference Range Interpretation Comments Hep B Core IgM (test Negative *NA*(03/18/17 code = Hep B Core 4:06 AM) IgM) [facility], [id number] 09:06:00 Test Item Value Reference Range Interpretation Comments Hep C Ab (test code = Negative *NA*(03/18/17 Hep C Ab) 4:06 AM) [facility], TxLpcuzxrGUMGJLQHYQ2725-17-53 09:06:00 Test Item Value Reference Range Interpretation Comments Hep Bs Ag (test code Negative *NA*(03/18/17 = Hep Bs Ag) 4:06 AM) [facility]cosCidppxiYBVFLEFNLG4626-10-94 09:06:00 Test Item Value Reference Range Interpretation Comments Hep A IgM (test code Negative *NA*(03/18/17 = Hep A IgM) 4:06 AM) [facility], TxPARATHYROID [id number] 09:06:00 Test Item Value Reference Range Interpretation Comments Ca Ion WB (test code = Ca Ion WB) 1.02 1.05-1.25 [facility]annPARATHYROID [id number] 09:06:00 Test Item Value Reference Range Interpretation Comments Ca Norm WB (test code = Ca Norm WB) 1.07 1.05-1.[address] [facility] [place], TxCHEM [id number] 09:06:00 Test Item Value Reference Range Interpretation Comments Procalcitonin Lvl (test 2.12 See_Comment [Au tomated message] code = Procalcitonin Lvl) Th e system which generated this result transmitted ref erence range: <=0.10. The reference range was not used to interpr et this result as normal/abnormal . [facility], [id number] 09:06:00 Test Item Value Reference Range Interpretation Comments Retic Auto (test code = Retic Auto) 1.4 0.5-1.[address] [facility], [id number] 09:06:00 Test Item Value Reference Range Interpretation Comments PB Smear Path (test Peripheral blood smear code = PB Smear examination; - Normocytic Path) anemia with anisocytosis, polychromasia. - Lymphopenia - Platelets are decreased with few giant form. No platelet clump seen. Clinical correlation is suggested. CPT [address] [facility], [id number] 09:06:00 Test Item Value Reference Range Interpretation Comments HIV Ag/Ab 4th Gen Negative *NA*(03/18/17 (test code = HIV 4:06 AM) Ag/Ab 4th Gen) [facility], TxIblakajVULDCCPELY3909-58-70 09:06:00 Test Item Value Reference Range Interpretation Comments Hep B Core Ab (test Negative *NA*(03/18/17 code = Hep B Core Ab) 4:06 AM) [facility], TxSazvcraXDTCHDMZNN7487-91-29 09:06:00 Test Item Value Reference Range Interpretation Comments Albumin (SPE) (test code = Albumin 2.81 3.57-5.55 (SPE)) [facility], TxPyqgqivIIUSVGPYRF5939-92-01 09:06:00 Test Item Value Reference Range Interpretation Comments Gamma % (test code = Gamma %) 19.0 11.1-18.[address] [facility], TxSesmjfnKKTSZOBLBB2082-54-79 09:06:00 Test Item Value Reference Range Interpretation Comments Alpha 2 Glob (test code = Alpha 2 Glob) 0.61 0.45-1.[address] [facility], TxSbczlkkPPAPUGBJCP5756-15-99 09:06:00 Test Item Value Reference Range Interpretation Comments Alpha 2 % (test code = Alpha 2 %) 10.2 7.0-11.[address] [facility], TxFggmiblRFQCPLGRQZ1606-12-30 09:06:00 Test Item Value Reference Range Interpretation Comments Alpha 1 % (test code = Alpha 1 %) 10.6 2.8-4.[address] [facility], TxBxkktfjZEQFSZCZQO0423-46-46 09:06:00 Test Item Value Reference Range Interpretation Comments Beta % (test code = Beta %) 13.4 7.8-13.[address] [facility], TxBqhxxfvGDWWWWLDVC7609-86-89 09:06:00 Test Item Value Reference Range Interpretation Comments Albumin % (test code = Albumin %) 46.8 55.8-66.[address] [facility], TxPahutjmRIFEIDKXJQ4666-64-65 09:06:00 Test Item Value Reference Range Interpretation Comments Beta Glob (test code = Beta Glob) 0.80 0.50-1.[address] [facility], TxUdtyhnmCIWEERZOJT2683-20-60 09:06:00 Test Item Value Reference Range Interpretation Comments Gamma Glob (test code = Gamma Glob) 1.14 0.71-1.[address] [facility], TxAatxjthUANTGKIQLO2945-60-95 09:06:00 Test Item Value Reference Range Interpretation Comments Alpha 1 Glob (test code = Alpha 1 Glob) 0.64 0.18-0.[address] [facility], TxBymisuqMOJJJJKYPS6365-58-06 09:06:00 Test Item Value Reference Range Interpretation Comments Tot Prot (SPE) (test code = Tot Prot 6.0 6.4-8.4 (SPE)) [facility], TxLxnbjbxFBCWGTCDAK1641-79-72 09:06:00 Test Item Value Reference Range Interpretation Comments SPE Interp (test Capillary electrophoresis code = SPE Interp) demonstrates a distortion of the gamma distribution curve. This requires further evaluation by serum and 24 hr urine immunofixation.As there is no definitive peak, quantification is not possible. Total protein level is reduced. Serum protein electrophoresis shows reduced albumin level with increase in the alpha-1 globulin fraction. These findings are otherwise consistent with protein loss and acute inflammation. Relevant medical information in the EMR was reviewed. I have personally reviewed the test results and concur with the resident's interpretation. CPT 46459-LO [id number] 09:06:00 Test Item Value Reference Range Interpretation Comments VENKAT (test code = VENKAT) Negative (03/18/17 4:06 AM) [facility]cosTzrdfnwJHSFMLNLMD1376-01-24 09:06:00 Test Item Value Reference Range Interpretation Comments Hep B Core IgM (test Negative *NA*(03/18/17 code = Hep B Core 4:06 AM) IgM) [facility] [place], [id number] 09:06:00 Test Item Value Reference Range Interpretation Comments Hep C Ab (test code = Negative *NA*(03/18/17 Hep C Ab) 4:06 AM) [facility]cosLzfhlcoKVRNKNKYRL4749-75-03 09:06:00 Test Item Value Reference Range Interpretation Comments Hep Bs Ag (test code Negative *NA*(03/18/17 = Hep Bs Ag) 4:06 AM) [facility]cosNmajzhyFGWIQTIPRI9285-37-05 09:06:00 Test Item Value Reference Range Interpretation Comments Hep A IgM (test code Negative *NA*(03/18/17 = Hep A IgM) 4:06 AM) [facility] [place], TxPARATHYROID [id number] 09:06:00 Test Item Value Reference Range Interpretation Comments Ca Ion WB (test code = Ca Ion WB) 1.02 1.05-1.25 [facility]cosannPARATHYROID [id number] 09:06:00 Test Item Value Reference Range Interpretation Comments Ca Norm WB (test code = Ca Norm WB) 1.07 1.05-1.[address] [facility] [place], TxCHEM [id number] 22:27:00 Test Item Value Reference Range Interpretation Comments Uric Acid (test code = Uric Acid) 9.6 3.8-8.0 [facility]cosZ[id number] 22:27:00 Test Item Value Reference Range Interpretation Comments Tot Prot (UPE) (test code = Tot Prot 106 (UPE)) [facility]cosZyoeldrMVFURJHEYS8683-96-77 22:27:00 Test Item Value Reference Range Interpretation Comments Interp (UPE) (test Urine protein code = Interp electrophoresis revealed (UPE)) presence of all protein fractions with a 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 There is no evidence of a paraprotein. Relevant medical information in the EMR was reviewed. I have personally reviewed the test results and concur with the resident's interpretation. CPT: 16969-KM [facility] [id number] 22:27:00 Test Item Value Reference Range Interpretation Comments Spec Type (UPE) (test code = Spec random, 50x Type (UPE)) [facility] [id number] 22:27:00 Test Item Value Reference Range Interpretation Comments Uric Acid (test code = Uric Acid) 9.6 3.8-8.[address] 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 There is no evidence of a paraprotein. Relevant medical information in the EMR was reviewed. I have personally reviewed the test results and concur with the resident's interpretation. CPT: 66730-GF [facility] [place], [id number] 22:27:00 Test Item Value Reference Range Interpretation Comments Spec Type (UPE) (test code = Spec random, 50x Type (UPE)) [facility] [employer] [id number] 11:22:00 Test Item Value Reference Range Interpretation Comments ABO/Rh (test code = ABO/Rh) O POS [facility] [employer] [id number] 11:22:00 Test Item Value Reference Range Interpretation Comments Antibody Scrn (test Negative (03/17/17 6:22 code = Antibody Scrn) AM) [facility] [employer] [id number] 11:22:00 Test Item Value Reference Range Interpretation Comments ABO/Rh (test code = ABO/Rh) O POS [facility] [employer] [id number] 11:22:00 Test Item Value Reference Range Interpretation Comments Antibody Scrn (test Negative (03/17/17 6:22 code = Antibody Scrn) AM) [facility] [place] BANK [id number] 10:56:00 Test Item Value Reference Range Interpretation Comments RBC product (test code Product available = RBC product) (03/17/17 5:56 AM) [facility] [id number] 10:56:00 Test Item Value Reference Range Interpretation Comments RBC product (test code Product available = RBC product) (03/17/17 5:56 AM) [facility]annCHEM [id number] 02:13:00 Test Item Value Reference Range Interpretation Comments Lactic Acid Lvl (test code = Lactic 0.7 0.5-2.2 Acid Lvl) [facility] [id number] 02:13:00 Test Item Value Reference Range Interpretation Comments Jerrell Vancomycin Not Detected (03/16/17 Resistance (test code = 9:13 PM) Jerrell Vancomycin Resistance) [facility]2017-10-09 02:13:00 Test Item Value Reference Range Interpretation Comments vanB Vancomycin Not Detected (03/16/17 Resistance (test code = 9:13 PM) vanB Vancomycin Resistance) [facility] [id number] 02:13:00 Test Item Value Reference Range Interpretation Comments Streptococcus spp. (test Not Detected code = Streptococcus (03/16/17 9:13 PM) spp.) [facility] [id number] 02:13:00 Test Item Value Reference Range Interpretation Comments Listeria spp. (test Not Detected (03/16/17 code = Listeria spp.) 9:13 PM) [facility] [id number] 02:13:00 Test Item Value Reference Range Interpretation Comments mecA Methicillin Detected Resistance (test code = *ABN*(03/16/17 9:13 mecA Methicillin PM) Resistance) [facility] [id number] 02:13:00 Test Item Value Reference Range Interpretation Comments S. pneumoniae (test code Not Detected (03/16/17 = S. pneumoniae) 9:13 PM) [facility] [id number] 02:13:00 Test Item Value Reference Range Interpretation Comments S. anginosus grp (test Not Detected (03/16/17 code = S. anginosus 9:13 PM) grp) [facility]2017-10-09 02:13:00 Test Item Value Reference Range Interpretation Comments S. agalactiae (test code Not Detected (03/16/17 = S. agalactiae) 9:13 PM) [facility]2017-10-09 02:13:00 Test Item Value Reference Range Interpretation Comments S. epidermidis (test Detected code = S. epidermidis) *ABN*(03/16/17 9:13 PM) [facility]2017-10-09 02:13:00 Test Item Value Reference Range Interpretation Comments S. lugdunensis (test Not Detected (03/16/17 code = S. lugdunensis) 9:13 PM) [facility]2017-10-09 02:13:00 Test Item Value Reference Range Interpretation Comments S. aureus (test code = Not Detected (03/16/17 S. aureus) 9:13 PM) [facility]2017-10-09 02:13:00 Test Item Value Reference Range Interpretation Comments S. pyogenes (test code Not Detected (03/16/17 = S. pyogenes) 9:13 PM) [facility]2017-10-09 02:13:00 Test Item Value Reference Range Interpretation Comments E. faecalis (test code Not Detected (03/16/17 = E. faecalis) 9:13 PM) [facility]2017-10-09 02:13:00 Test Item Value Reference Range Interpretation Comments Staphylococcus spp. (test Detected code = Staphylococcus *ABN*(03/16/17 9:13 spp.) PM) [facility] [id number] 02:13:00 Test Item Value Reference Range Interpretation Comments E. faecium (test code Not Detected (03/16/17 = E. faecium) 9:13 PM) [facility] AND [id number] 02:13:00 Test Item Value Reference Range Interpretation Comments UA Urobilinogen (test code = UA <=1.0 mg/dL 0.1-1.0 Urobilinogen) [facility] AND [id number] 02:13:00 Test Item Value Reference Range Interpretation Comments UA Sq Epi (test code = UA Sq Epi) None Seen [facility] AND [id number] 02:13:00 Test Item Value Reference Range Interpretation Comments UA WBC (test code = 3 See_Comment [Automa jeremías message] The UA WBC) system which ge nerated this result transmit jeremías reference range : <=5. The reference range was not used to interpr et this result as rosa l/abnormal. [facility] AND [id number] 02:13:00 Test Item Value Reference Range Interpretation Comments UA Bacteria (test code = UA Occasional /HPF Bacteria) [facility] AND [id number] 02:13:00 Test Item Value Reference Range Interpretation Comments UA RBC (test code = 22 See_Comment [Automa jeremías message] The UA RBC) system which ge nerated this result transmit jeremías reference range : <=2. The reference range was not used to interpr et this result as rosa l/abnormal. [facility] AND [id number] 02:13:00 Test Item Value Reference Range Interpretation Comments UA Mucus (test code = UA Mucus) Few /LPF [facility] AND [id number] 02:13:00 Test Item Value Reference Range Interpretation Comments UA Color (test code = Yellow *NA*(03/16/17 UA Color) 9:13 PM) [facility] AND [id number] 02:13:00 Test Item Value Reference Range Interpretation Comments UA Ketones (test code = UA Negative mg/dL Ketones) [facility] AND [id number] 02:13:00 Test Item Value Reference Range Interpretation Comments UA Turbidity (test code Slight *ABN*(03/16/17 = UA Turbidity) 9:13 PM) [facility] AND [id number] 02:13:00 Test Item Value Reference Range Interpretation Comments UA pH (test code = UA pH) 5.5 5.0-8.0 [facility] AND [id number] 02:13:00 Test Item Value Reference Range Interpretation Comments UA Spec Grav (test code = UA Spec Grav) 1.010 [facility] AND [id number] 02:13:00 Test Item Value Reference Range Interpretation Comments UA Protein (test code = UA Protein) 100 mg/dL [facility] AND [id number] 02:13:00 Test Item Value Reference Range Interpretation Comments UA Glucose (test code = UA Negative mg/dL Glucose) [facility] AND [id number] 02:13:00 Test Item Value Reference Range Interpretation Comments UA Blood (test code = Moderate *ABN*(03/16/17 UA Blood) 9:13 PM) [facility] AND [id number] 02:13:00 Test Item Value Reference Range Interpretation Comments UA Bili (test code = Negative *NA*(03/16/17 UA Bili) 9:13 PM) [facility] AND [id number] 02:13:00 Test Item Value Reference Range Interpretation Comments UA Leuk Est (test Negative (03/16/17 9:13 code = UA Leuk Est) PM) [facility] AND [id number] 02:13:00 Test Item Value Reference Range Interpretation Comments UA Nitrite (test code Negative (03/16/17 9:13 = UA Nitrite) PM) [facility] [id number] 02:13:00 Test Item Value Reference Range Interpretation Comments Lactic Acid Lvl (test code = Lactic 0.7 0.5-2.2 Acid Lvl) [facility]2017-10-09 02:13:00 Test Item Value Reference Range Interpretation Comments Jerrell Vancomycin Not Detected (03/16/17 Resistance (test code = 9:13 PM) Jerrell Vancomycin Resistance) [facility]2017-10-09 02:13:00 Test Item Value Reference Range Interpretation Comments vanB Vancomycin Not Detected (03/16/17 Resistance (test code = 9:13 PM) vanB Vancomycin Resistance) [facility]2017-10-09 02:13:00 Test Item Value Reference Range Interpretation Comments Streptococcus spp. (test Not Detected code = Streptococcus (03/16/17 9:13 PM) spp.) [facility]2017-10-09 02:13:00 Test Item Value Reference Range Interpretation Comments Listeria spp. (test Not Detected (03/16/17 code = Listeria spp.) 9:13 PM) [facility]2017-10-09 02:13:00 Test Item Value Reference Range Interpretation Comments mecA Methicillin Detected Resistance (test code = *ABN*(03/16/17 9:13 mecA Methicillin PM) Resistance) [facility]2017-10-09 02:13:00 Test Item Value Reference Range Interpretation Comments S. pneumoniae (test code Not Detected (03/16/17 = S. pneumoniae) 9:13 PM) [facility]2017-10-09 02:13:00 Test Item Value Reference Range Interpretation Comments S. anginosus grp (test Not Detected (03/16/17 code = S. anginosus 9:13 PM) grp) [facility]2017-10-09 02:13:00 Test Item Value Reference Range Interpretation Comments S. agalactiae (test code Not Detected (03/16/17 = S. agalactiae) 9:13 PM) [facility]2017-10-09 02:13:00 Test Item Value Reference Range Interpretation Comments S. epidermidis (test Detected code = S. epidermidis) *ABN*(03/16/17 9:13 PM) [facility]2017-10-09 02:13:00 Test Item Value Reference Range Interpretation Comments S. lugdunensis (test Not Detected (03/16/17 code = S. lugdunensis) 9:13 PM) [facility]2017-10-09 02:13:00 Test Item Value Reference Range Interpretation Comments S. aureus (test code = Not Detected (03/16/17 S. aureus) 9:13 PM) [facility]2017-10-09 02:13:00 Test Item Value Reference Range Interpretation Comments S. pyogenes (test code Not Detected (03/16/17 = S. pyogenes) 9:13 PM) [facility]2017-10-09 02:13:00 Test Item Value Reference Range Interpretation Comments E. faecalis (test code Not Detected (03/16/17 = E. faecalis) 9:13 PM) [facility]2017-10-09 02:13:00 Test Item Value Reference Range Interpretation Comments Staphylococcus spp. (test Detected code = Staphylococcus *ABN*(03/16/17 9:13 spp.) PM) [id number] 02:13:00 Test Item Value Reference Range Interpretation Comments E. faecium (test code Not Detected (03/16/17 = E. faecium) 9:13 PM) [facility] [id number] 02:13:00 Test Item Value Reference Range Interpretation Comments UA Urobilinogen (test code = UA <=1.0 mg/dL 0.1-1.0 Urobilinogen) [facility] [id number] 02:13:00 Test Item Value Reference Range Interpretation Comments UA Sq Epi (test code = UA Sq Epi) None [facility]en [facility] [id number] 02:13:00 Test Item Value Reference Range Interpretation Comments UA WBC (test code = 3 See_Comment [Automa jeremías message] The UA WBC) system which ge nerated this result transmit jeremías reference range : <=5. The reference range was not used to interpr et this result as rosa l/abnormal. [facility] [id number] 02:13:00 Test Item Value Reference Range Interpretation Comments UA Bacteria (test code = UA Occasional /HPF Bacteria) [facility] [id number] 02:13:00 Test Item Value Reference Range Interpretation Comments UA RBC (test code = 22 See_Comment [Automa jeremías message] The UA RBC) system which ge nerated this result transmit jeremías reference range : <=2. The reference range was not used to interpr et this result as rosa l/abnormal. [facility] [id number] 02:13:00 Test Item Value Reference Range Interpretation Comments UA Mucus (test code = UA Mucus) Few /LPF [facility] [id number] 02:13:00 Test Item Value Reference Range Interpretation Comments UA Color (test code = Yellow *NA*(03/16/17 UA Color) 9:13 PM) [facility] [id number] 02:13:00 Test Item Value Reference Range Interpretation Comments UA Ketones (test code = UA Negative mg/dL Ketones) [facility] [id number] 02:13:00 Test Item Value Reference Range Interpretation Comments UA Turbidity (test code Slight *ABN*(03/16/17 = UA Turbidity) 9:13 PM) [facility] AND [id number] 02:13:00 Test Item Value Reference Range Interpretation Comments UA pH (test code = UA pH) 5.5 5.0-8.0 [facility] AND [id number] 02:13:00 Test Item Value Reference Range Interpretation Comments UA Spec Grav (test code = UA Spec Grav) 1.010 [facility] AND [id number] 02:13:00 Test Item Value Reference Range Interpretation Comments UA Protein (test code = UA Protein) 100 mg/dL [facility] AND [id number] 02:13:00 Test Item Value Reference Range Interpretation Comments UA Glucose (test code = UA Negative mg/dL Glucose) [facility] AND [id number] 02:13:00 Test Item Value Reference Range Interpretation Comments UA Blood (test code = Moderate *ABN*(03/16/17 UA Blood) 9:13 PM) [facility] AND [id number] 02:13:00 Test Item Value Reference Range Interpretation Comments UA Bili (test code = Negative *NA*(03/16/17 UA Bili) 9:13 PM) [facility] AND [id number] 02:13:00 Test Item Value Reference Range Interpretation Comments UA Leuk Est (test Negative (03/16/17 9:13 code = UA Leuk Est) PM) [facility] AND [id number] 02:13:00 Test Item Value Reference Range Interpretation Comments UA Nitrite (test code Negative (03/16/17 9:13 = UA Nitrite) PM) [facility] [place], TxCARDIAC [id number] 13:30:00 Test Item Value Reference Range Interpretation Comments proBNP (test code = 86761 See_Comment [Automa jeremías message] The proBNP) system which ge nerated this result tra nsmitted reference range : <=125. The reference r nhung was not used to int erpret this result as rosa l/abnormal. [facility] [id number] 13:30:00 Test Item Value Reference Range Interpretation Comments proBNP (test code = 78561 See_Comment [Automa jeremías message] The proBNP) system which ge nerated this result tra nsmitted reference range : <=125. The reference r nhung was not used to int erpret this result as rosa l/abnormal. [facility] [employer] [id number] 06:31:00 Test Item Value Reference Range Interpretation Comments Procalcitonin Lvl (test 1.17 See_Comment [Au tomated message] code = Procalcitonin Lvl) Th e system which generated this result transmitted ref erence range: <=0.10. The reference range was not used to interpr et this result as normal/abnormal . [facility] [employer] [id number] 06:31:00 Test Item Value Reference Range Interpretation Comments Procalcitonin Lvl (test 1.17 See_Comment [Au tomated message] code = Procalcitonin Lvl) Th e system which generated this result transmitted ref erence range: <=0.10. The reference range was not used to interpr et this result as normal/abnormal . [facility]2017-10-07 08:58:00 Test Item Value Reference Range Interpretation Comments proBNP (test code = 57977 See_Comment [Automa jeremías message] The proBNP) system which ge nerated this result tra nsmitted reference range : <=125. The reference r nhung was not used to int erpret this result as rosa l/abnormal. [facility] [employer]2017-10-07 08:58:00 Test Item Value Reference Range Interpretation Comments proBNP (test code = 03433 See_Comment [Automa jeremías message] The proBNP) system which ge nerated this result tra nsmitted reference range : <=125. The reference r nhung was not used to int erpret this result as rosa l/abnormal. [facility] [place], TxPARATHYROID [id number] 07:36:00 Test Item Value Reference Range Interpretation Comments Ca Ion WB (test code = Ca Ion WB) 0.98 1.05-1.25 [facility]annPARATHYROID [id number] 07:36:00 Test Item Value Reference Range Interpretation Comments Ca Norm WB (test code = Ca Norm WB) 1.04 1.05-1.25 [facility] [id number] 07:36:00 Test Item Value Reference Range Interpretation Comments Vanco Lvl (test code = Vanco Lvl) 18.7 [facility] [id number] 07:36:00 Test Item Value Reference Range Interpretation Comments Ca Ion WB (test code = Ca Ion WB) 0.98 1.05-1.25 [facility] [id number] 07:36:00 Test Item Value Reference Range Interpretation Comments Ca Norm WB (test code = Ca Norm WB) 1.04 1.05-1.25 [place] [id number] 07:36:00 Test Item Value Reference Range Interpretation Comments Vanco Lvl (test code = Vanco Lvl) 18.7 [facility] [id number] 16:38:00 Test Item Value Reference Range Interpretation Comments ABO/Rh (test code = ABO/Rh) O POS [facility] [id number] 16:38:00 Test Item Value Reference Range Interpretation Comments Antibody Scrn (test Negative (03/13/17 code = Antibody Scrn) 11:38 AM) [facility] [id number] 16:38:00 Test Item Value Reference Range Interpretation Comments ABO/Rh (test code = ABO/Rh) O POS [facility] [employer] [facility] [id number] 16:38:00 Test Item Value Reference Range Interpretation Comments Antibody Scrn (test Negative (03/13/17 code = Antibody Scrn) 11:38 AM) [place] [id number] 08:33:00 Test Item Value Reference Range Interpretation Comments Vanco Lvl (test code = Vanco Lvl) 24.3 [place] [id number] 08:33:00 Test Item Value Reference Range Interpretation Comments Vanco Lvl (test code = Vanco Lvl) 24.3 [place] [id number] 15:46:00 Test Item Value Reference Range Interpretation Comments Vanco Lvl (test code = Vanco Lvl) 28.0 [place] [id number] 15:46:00 Test Item Value Reference Range Interpretation Comments Vanco Lvl (test code = Vanco Lvl) 28.[address] [facility] [place], TxCARDIAC [id number] 06:58:00 Test Item Value Reference Range Interpretation Comments proBNP (test code = 04325 See_Comment [Automa jeremías message] The proBNP) system which ge nerated this result tra nsmitted reference range : <=125. The reference r nhung was not used to int erpret this result as rosa l/abnormal. [facility]2017-10-03 06:58:00 Test Item Value Reference Range Interpretation Comments Bili Indirect (test 0.7 See_Comment [Automa jeremías message] The code = Bili Indirect) system which generated this result tra nsmitted reference range : <=1.0. The reference r nhung was not used to int erpret this result as normal/abnormal . [facility]2017-10-03 06:58:00 Test Item Value Reference Range Interpretation Comments Bili Direct (test code 0.4 See_Comment [Aut omated message] The = Bili Direct) system which generated this result tra nsmitted reference range : <=0.3. The reference r nhung was not used to int erpret this result as rosa l/abnormal. [facility], [id number] 06:58:00 Test Item Value Reference Range Interpretation Comments PTT (test code = PTT) 32.6 s 22.9-35.8 [facility] [id number] 06:58:00 Test Item Value Reference Range Interpretation Comments INR (test code = INR) 1.22 0.85-1.17 [facility] [id number] 06:58:00 Test Item Value Reference Range Interpretation Comments PT (test code = PT) 15.7 s 12.0-14.[address] [facility], [id number] 06:58:00 Test Item Value Reference Range Interpretation Comments VENKAT (test code = VENKAT) Negative (03/11/17 1:58 AM) [facility], TxCARDIAC [id number] 06:58:00 Test Item Value Reference Range Interpretation Comments proBNP (test code = 14084 See_Comment [Automa jeremías message] The proBNP) system which ge nerated this result tra nsmitted reference range : <=125. The reference r nhung was not used to int erpret this result as rosa l/abnormal. [facility]2017-10-03 06:58:00 Test Item Value Reference Range Interpretation Comments Bili Indirect (test 0.7 See_Comment [Automa jeremías message] The code = Bili Indirect) system which generated this result tra nsmitted reference range : <=1.0. The reference r nhung was not used to int erpret this result as normal/abnormal . [facility] [place], TxCHEM [id number] 06:58:00 Test Item Value Reference Range Interpretation Comments Bili Direct (test code 0.4 See_Comment [Aut omated message] The = Bili Direct) system which generated this result tra nsmitted reference range : <=0.3. The reference r nhung was not used to int erpret this result as rosa l/abnormal. [facility] [place], [id number] 06:58:00 Test Item Value Reference Range Interpretation Comments PTT (test code = PTT) 32.6 s 22.9-35.[address] [facility] [place], TxCaceyptXRMOBUUOQZ5268-55-83 06:58:00 Test Item Value Reference Range Interpretation Comments INR (test code = INR) 1.22 0.85-1.[address] [facility] [place], [id number] 06:58:00 Test Item Value Reference Range Interpretation Comments PT (test code = PT) 15.7 s 12.0-14.[address] [facility] [place], TxBqdflxnCYPMVVIAUG6595-31-51 06:58:00 Test Item Value Reference Range Interpretation Comments VENKAT (test code = VENKAT) Negative (03/11/17 1:58 AM) [facility] AND [id number] 05:22:00 Test Item Value Reference Range Interpretation Comments UA Urobilinogen (test code = UA <=1.0 mg/dL 0.1-1.0 Urobilinogen) [facility] AND [id number] 05:22:00 Test Item Value Reference Range Interpretation Comments UA Ketones (test code = UA Ketones) TR [facility] AND [id number] 05:22:00 Test Item Value Reference Range Interpretation Comments UA Sq Epi (test code = UA Sq Epi) None Seen [facility] AND [id number] 05:22:00 Test Item Value Reference Range Interpretation Comments UA [place] Yeast (test code = UA Occasional /HPF [place] Yeast) [facility] AND [id number] 05:22:00 Test Item Value Reference Range Interpretation Comments UA Mucus (test code = UA Mucus) Few /LPF [facility] AND [id number] 05:22:00 Test Item Value Reference Range Interpretation Comments UA RBC (test code = no gt See_Comment [Automa jeremías message] The UA RBC) system which ge nerated this result transmit jeremías reference range : <=2. The reference range was not used to interpr et this result as rosa l/abnormal. [facility] AND [id number] 05:22:00 Test Item Value Reference Range Interpretation Comments UA Blood (test code = Negative (03/10/17 12:22 UA Blood) AM) [facility] AND [id number] 05:22:00 Test Item Value Reference Range Interpretation Comments UA Nitrite (test code Negative (03/10/17 12:22 = UA Nitrite) AM) [facility] AND [id number] 05:22:00 Test Item Value Reference Range Interpretation Comments UA Leuk Est (test Negative (03/10/17 12:22 code = UA Leuk Est) AM) [facility] AND [id number] 05:22:00 Test Item Value Reference Range Interpretation Comments UA WBC (test code = no gt See_Comment [Automa jeremías message] The UA WBC) system which ge nerated this result transmit jeremías reference range : <=5. The reference range was not used to interpr et this result as rosa l/abnormal. [facility] AND [id number] 05:22:00 Test Item Value Reference Range Interpretation Comments UA Glucose (test code = UA Negative mg/dL Glucose) [facility] AND [id number] 05:22:00 Test Item Value Reference Range Interpretation Comments UA Bili (test code = Negative *NA*(03/10/17 UA Bili) 12:22 AM) [facility] AND [id number] 05:22:00 Test Item Value Reference Range Interpretation Comments UA Spec Grav (test code = UA Spec Grav) 1.006 [facility] AND [id number] 05:22:00 Test Item Value Reference Range Interpretation Comments UA Color (test code = Light Yellow UA Color) *NA*(03/10/17 12:22 AM) [facility] AND [id number] 05:22:00 Test Item Value Reference Range Interpretation Comments UA Turbidity (test code = Clear (03/10/17 12:22 UA Turbidity) AM) [facility] AND [id number] 05:22:00 Test Item Value Reference Range Interpretation Comments UA Protein (test code = UA Protein) 10 mg/dL [facility] AND [id number] 05:22:00 Test Item Value Reference Range Interpretation Comments UA pH (test code = UA pH) 5.0 5.0-8.0 [facility] AND [id number] 05:22:00 Test Item Value Reference Range Interpretation Comments UA Urobilinogen (test code = UA <=1.0 mg/dL 0.1-1.0 Urobilinogen) [facility] AND [id number] 05:22:00 Test Item Value Reference Range Interpretation Comments UA Ketones (test code = UA Ketones) TR [facility] AND [id number] 05:22:00 Test Item Value Reference Range Interpretation Comments UA Sq Epi (test code = UA Sq Epi) None Seen [facility] AND [id number] 05:22:00 Test Item Value Reference Range Interpretation Comments UA [place] Yeast (test code = UA Occasional /HPF [place] Yeast) [facility] AND [id number] 05:22:00 Test Item Value Reference Range Interpretation Comments UA Mucus (test code = UA Mucus) Few /LPF [facility] AND [id number] 05:22:00 Test Item Value Reference Range Interpretation Comments UA RBC (test code = no gt See_Comment [Automa jeremías message] The UA RBC) system which ge nerated this result transmit jeremías reference range : <=2. The reference range was not used to interpr et this result as rosa l/abnormal. [facility] AND [id number] 05:22:00 Test Item Value Reference Range Interpretation Comments UA Blood (test code = Negative (03/10/17 12:22 UA Blood) AM) [facility] AND [id number] 05:22:00 Test Item Value Reference Range Interpretation Comments UA Nitrite (test code Negative (03/10/17 12:22 = UA Nitrite) AM) [facility] AND [id number] 05:22:00 Test Item Value Reference Range Interpretation Comments UA Leuk Est (test Negative (03/10/17 12:22 code = UA Leuk Est) AM) [facility] AND [id number] 05:22:00 Test Item Value Reference Range Interpretation Comments UA WBC (test code = no gt See_Comment [Automa jeremías message] The UA WBC) system which ge nerated this result transmit jeremías reference range : <=5. The reference range was not used to interpr et this result as rosa l/abnormal. [facility] AND [id number] 05:22:00 Test Item Value Reference Range Interpretation Comments UA Glucose (test code = UA Negative mg/dL Glucose) [facility] AND [id number] 05:22:00 Test Item Value Reference Range Interpretation Comments UA Bili (test code = Negative *NA*(03/10/17 UA Bili) 12:22 AM) [facility] AND [id number] 05:22:00 Test Item Value Reference Range Interpretation Comments UA Spec Grav (test code = UA Spec Grav) 1.006 [facility] AND [id number] 05:22:00 Test Item Value Reference Range Interpretation Comments UA Color (test code = Light Yellow UA Color) *NA*(03/10/17 12:22 AM) [facility] AND [id number] 05:22:00 Test Item Value Reference Range Interpretation Comments UA Turbidity (test code = Clear (03/10/17 12:22 UA Turbidity) AM) [facility] AND [id number] 05:22:00 Test Item Value Reference Range Interpretation Comments UA Protein (test code = UA Protein) 10 mg/dL [facility] AND [id number] 05:22:00 Test Item Value Reference Range Interpretation Comments UA pH (test code = UA pH) 5.0 5.0-8.0 [facility] [id number] 01:38:00 Test Item Value Reference Range Interpretation Comments CK MB Index (test 1.9 See_Comment [Automate d message] The code = CK MB Index) system w [facility] generated this result transmit jeremías reference range : <=2.5. The reference range was not used to interpr et this result as rosa l/abnormal. [facility] [id number] 01:38:00 Test Item Value Reference Range Interpretation Comments CK MB (test code = CK MB) 3.6 0.5-3.6 [facility] [id number] 01:38:00 Test Item Value Reference Range Interpretation Comments Total CK (test code = Total CK) 190 12-191 [facility] [id number] 01:38:00 Test Item Value Reference Range Interpretation Comments Troponin-I (test code 0.19 See_Comment [Auto mated message] The = Troponin-I) system which g enerated this result transmit jeremías reference range : <=0.40. The reference r nhung was not used to interpr et this result as rosa l/abnormal. [facility] [id number] 01:38:00 Test Item Value Reference Range Interpretation Comments PT (test code = PT) 14.9 s 12.0-14.7 [facility] [id number] 01:38:00 Test Item Value Reference Range Interpretation Comments INR (test code = INR) 1.15 0.85-1.17 [facility] [id number] 01:38:00 Test Item Value Reference Range Interpretation Comments CK MB Index (test 1.9 See_Comment [Automate d message] The code = CK MB Index) system w [facility] generated this result transmit jeremías reference range : <=2.5. The reference range was not used to interpr et this result as rosa l/abnormal. [facility] [id number] 01:38:00 Test Item Value Reference Range Interpretation Comments CK MB (test code = CK MB) 3.6 0.5-3.6 [facility] [id number] 01:38:00 Test Item Value Reference Range Interpretation Comments Total CK (test code = Total CK) 190 12-191 [facility] [id number] 01:38:00 Test Item Value Reference Range Interpretation Comments Troponin-I (test code 0.19 See_Comment [Auto mated message] The = Troponin-I) system which g enerated this result transmit jeremías reference range : <=0.40. The reference r nhung was not used to interpr et this result as rosa l/abnormal. [facility] [id number] 01:38:00 Test Item Value Reference Range Interpretation Comments PT (test code = PT) 14.9 s 12.0-14.7 [id number] 01:38:00 Test Item Value Reference Range Interpretation Comments INR (test code = INR) 1.15 0.85-1.17 [facility] [id number] 21:39:00 Test Item Value Reference Range Interpretation Comments CK MB Index (test 1.8 See_Comment [Automate d message] The code = CK MB Index) system w [facility] generated this result transmit jeremías reference range : <=2.5. The reference range was not used to interpr et this result as rosa l/abnormal. [facility] [id number] 21:39:00 Test Item Value Reference Range Interpretation Comments CK MB (test code = CK MB) 3.5 0.5-3.6 [facility] [id number] 21:39:00 Test Item Value Reference Range Interpretation Comments BNP (test code = BNP) 1766 [facility] [id number] 21:39:00 Test Item Value Reference Range Interpretation Comments Troponin-I (test code 0.22 See_Comment [Auto mated message] The = Troponin-I) system which g enerated this result transmit jeremías reference range : <=0.40. The reference r nhung was not used to interpr et this result as rosa l/abnormal. [facility] [id number] 21:39:00 Test Item Value Reference Range Interpretation Comments Troponin-T (test code 0.107 See_Comment [Auto mated message] The = Troponin-T) system which g enerated this result transmit jeremías reference range : <=0.100. The reference r nhung was not used to interpr et this result as rosa l/abnormal. [facility], [id number] 21:39:00 Test Item Value Reference Range Interpretation Comments Total CK (test code = Total CK) 196 12-191 [facility] [id number] 21:39:00 Test Item Value Reference Range Interpretation Comments U Sodium (test code = U Sodium) 74 [facility] [id number] 21:39:00 Test Item Value Reference Range Interpretation Comments U Potassium (test code = U Potassium) 10.5 [facility] [employer]2017-10-01 21:39:00 Test Item Value Reference Range Interpretation Comments U Osmolality (test code = U Osmolality) 323 300-800 [facility] [employer] [id number] 21:39:00 Test Item Value Reference Range Interpretation Comments CK MB Index (test 1.8 See_Comment [Automate d message] The code = CK MB Index) system w [facility] generated this result transmit jeremías reference range : <=2.5. The reference range was not used to interpr et this result as rosa l/abnormal. [facility] [employer]2017-10-01 21:39:00 Test Item Value Reference Range Interpretation Comments CK MB (test code = CK MB) 3.5 0.5-3.6 [facility]DriveFactorK[facility] [id number] 21:39:00 Test Item Value Reference Range Interpretation Comments BNP (test code = BNP) 1766 [facility] [employer]2017-10-01 21:39:00 Test Item Value Reference Range Interpretation Comments Troponin-I (test code 0.22 See_Comment [Auto mated message] The = Troponin-I) system which g enerated this result transmit jeremías reference range : <=0.40. The reference r nhung was not used to interpr et this result as rosa l/abnormal. [facility] [employer]2017-10-01 21:39:00 Test Item Value Reference Range Interpretation Comments Troponin-T (test code 0.107 See_Comment [Auto mated message] The = Troponin-T) system which g enerated this result transmit jeremías reference range : <=0.100. The reference r nhung was not used to interpr et this result as rosa l/abnormal. [facility] [employer]2017-10-01 21:39:00 Test Item Value Reference Range Interpretation Comments Total CK (test code = Total CK) 196 12-191 [facility] [id number] 21:39:00 Test Item Value Reference Range Interpretation Comments U Sodium (test code = U Sodium) 74 [facility]cosEup[facility] [id number] 21:39:00 Test Item Value Reference Range Interpretation Comments U Potassium (test code = U Potassium) 10.5 [facility]2017-10-01 21:39:00 Test Item Value Reference Range Interpretation Comments U Osmolality (test code = U Osmolality) 323 300-800 [facility] HospitalCouedfqNCTEXRNIHO0284-61-36 20:35:00 Test Item Value Reference Range Interpretation Comments Bands (test code = 0.0 See_Comment [Automat ed message] The Bands) system which ge nerated this result transmit jeremías reference range : <=11.0. The reference r nhung was not used to interpr et this result as rosa l/abnormal. [facility] [id number] 20:35:00 Test Item Value Reference Range Interpretation Comments Atypical Lymphs (test code = Atypical 0.0 Lymphs) [facility] [id number] 20:35:00 Test Item Value Reference Range Interpretation Comments RBC Morph (test code = Normal (03/09/17 3:35 RBC Morph) PM) [facility] [id number] 20:35:00 Test Item Value Reference Range Interpretation Comments Bands (test code = 0.0 See_Comment [Automat ed message] The Bands) system which ge nerated this result transmit jeremías reference range : <=11.0. The reference r nhung was not used to interpr et this result as rosa l/abnormal. [facility] [id number] 20:35:00 Test Item Value Reference Range Interpretation Comments Atypical Lymphs (test code = Atypical 0.0 Lymphs) [facility] [id number] 20:35:00 Test Item Value Reference Range Interpretation Comments RBC Morph (test code = Normal (03/09/17 3:35 RBC Morph) PM) [facility] [id number] 04:34:00 Test Item Value Reference Range Interpretation Comments RBC Morph (test code = Normal (03/08/17 11:34 RBC Morph) PM) [facility] TexasDdnyhiwSJOOSEMLKC8005-01-40 04:34:00 Test Item Value Reference Range Interpretation Comments RBC Morph (test code = Normal (03/08/17 11:34 RBC Morph) PM) [facility], TxCARDIAC [id number] 01:25:00 Test Item Value Reference Range Interpretation Comments Troponin-T (test code 0.076 See_Comment [Auto mated message] The = Troponin-T) system which g enerated this result transmit jeremías reference range : <=0.100. The reference r nhung was not used to interpr et this result as rosa l/abnormal. [facility] [id number] 01:25:00 Test Item Value Reference Range Interpretation Comments Troponin-I (test code 0.08 See_Comment [Auto mated message] The = Troponin-I) system which g enerated this result transmit jeremías reference range : <=0.40. The reference r nhung was not used to interpr et this result as rosa l/abnormal. [facility] [id number] 01:25:00 Test Item Value Reference Range Interpretation Comments Troponin-T (test code 0.076 See_Comment [Auto mated message] The = Troponin-T) system which g enerated this result transmit jeremías reference range : <=0.100. The reference r nhung was not used to interpr et this result as rosa l/abnormal. [facility] [id number] 01:25:00 Test Item Value Reference Range Interpretation Comments Troponin-I (test code 0.08 See_Comment [Auto mated message] The = Troponin-I) system which g enerated this result transmit jeremías reference range : <=0.40. The reference r nhung was not used to interpr et this result as rosa l/abnormal. [facility] AND [id number] 19:47:00 Test Item Value Reference Range Interpretation Comments Occult Bld Stl (test Positive *ABN*(03/07/17 code = Occult Bld Stl) 2:47 PM) [facility] AND [id number] 19:47:00 Test Item Value Reference Range Interpretation Comments Occult Bld Stl (test Positive *ABN*(03/07/17 code = Occult Bld Stl) 2:47 PM) [facility] [employer] [id number] 08:50:00 Test Item Value Reference Range Interpretation Comments Osmolality (test code = Osmolality) 319 280-[address] [facility], TxCHEM [id number] 08:50:00 Test Item Value Reference Range Interpretation Comments Osmolality (test code = Osmolality) 319 280-300 [facility] [id number] 04:19:00 Test Item Value Reference Range Interpretation Comments U Osmolality (test code = U Osmolality) 331 300-800 [facility]2017-09-29 04:19:00 Test Item Value Reference Range Interpretation Comments U Potassium (test code = U Potassium) 11.3 [facility]2017-09-29 04:19:00 Test Item Value Reference Range Interpretation Comments U Sodium (test code = U Sodium) 16 [facility]2017-09-29 04:19:00 Test Item Value Reference Range Interpretation Comments U Osmolality (test code = U Osmolality) 331 300-800 [facility]2017-09-29 04:19:00 Test Item Value Reference Range Interpretation Comments U Potassium (test code = U Potassium) 11.3 [facility]2017-09-29 04:19:00 Test Item Value Reference Range Interpretation Comments U Sodium (test code = U Sodium) 16 [facility]2017-09-28 16:30:00 Test Item Value Reference Range Interpretation Comments U Osmolality (test code = U Osmolality) 320 300-800 [facility]2017-09-28 16:30:00 Test Item Value Reference Range Interpretation Comments U Sodium (test code = U Sodium) 16 [facility]2017-09-28 16:30:00 Test Item Value Reference Range Interpretation Comments U Potassium (test code = U Potassium) 12.6 [facility]2017-09-28 16:30:00 Test Item Value Reference Range Interpretation Comments U Osmolality (test code = U Osmolality) 320 300-800 [facility]2017-09-28 16:30:00 Test Item Value Reference Range Interpretation Comments U Sodium (test code = U Sodium) 16 [facility]2017-09-28 16:30:00 Test Item Value Reference Range Interpretation Comments U Potassium (test code = U Potassium) 12.6 [facility]2017-09-28 11:09:00 Test Item Value Reference Range Interpretation Comments Folate Lvl (test code = Folate Lvl) 4.2 [facility]2017-09-28 11:09:00 Test Item Value Reference Range Interpretation Comments Folate Lvl (test code = Folate Lvl) 4.2 [facility]2017-09-27 20:14:00 Test Item Value Reference Range Interpretation Comments UIBC (test code = UIBC) 129 110-370 [facility]2017-09-27 20:14:00 Test Item Value Reference Range Interpretation Comments % Satur Fe (test code = % Satur Fe) 53 12-57 [facility]2017-09-27 20:14:00 Test Item Value Reference Range Interpretation Comments Iron (test code = Iron) 146 45-160 [facility]2017-09-27 20:14:00 Test Item Value Reference Range Interpretation Comments TIBC (test code = TIBC) 275 228-428 [facility]2017-09-27 20:14:00 Test Item Value Reference Range Interpretation Comments Ferritin Lvl (test code = Ferritin Lvl) 250 22-275 [facility]2017-09-27 20:14:00 Test Item Value Reference Range Interpretation Comments Vitamin B12 Lvl (test code = Vitamin [phone] B12 Lvl) [facility] TexasOiddqfhJFDSPJIKFO1031-92-65 20:14:00 Test Item Value Reference Range Interpretation Comments Retic Auto (test code = Retic Auto) 1.5 0.5-1.5 [facility]2017-09-27 20:14:00 Test Item Value Reference Range Interpretation Comments UIBC (test code = UIBC) 129 110-370 [facility]2017-09-27 20:14:00 Test Item Value Reference Range Interpretation Comments % Satur Fe (test code = % Satur Fe) 53 12-57 [facility]2017-09-27 20:14:00 Test Item Value Reference Range Interpretation Comments Iron (test code = Iron) 146 45-160 [facility]2017-09-27 20:14:00 Test Item Value Reference Range Interpretation Comments TIBC (test code = TIBC) 275 228-428 [facility]2017-09-27 20:14:00 Test Item Value Reference Range Interpretation Comments Ferritin Lvl (test code = Ferritin Lvl) 250 22-275 [facility]2017-09-27 20:14:00 Test Item Value Reference Range Interpretation Comments Vitamin B12 Lvl (test code = Vitamin [phone] B12 Lvl) [facility] TexasPlkunkaOCZAMTVZRS6150-69-78 20:14:00 Test Item Value Reference Range Interpretation Comments Retic Auto (test code = Retic Auto) 1.5 0.5-1.5 [facility] AND [id number] 07:38:00 Test Item Value Reference Range Interpretation Comments UA Renal Epi (test code = UA Renal Epi) RARE [facility] AND [id number] 07:38:00 Test Item Value Reference Range Interpretation Comments UA Bacteria (test code = UA Occasional /HPF Bacteria) [facility] AND [id number] 07:38:00 Test Item Value Reference Range Interpretation Comments UA Renal Epi (test code = UA Renal Epi) RARE [facility] AND [id number] 07:38:00 Test Item Value Reference Range Interpretation Comments UA Bacteria (test code = UA Occasional /HPF Bacteria) [facility] TexasUfsnjifPWJFUKZBMS6109-39-30 07:28:00 Test Item Value Reference Range Interpretation Comments PB Smear Path Peripheral blood smear (test code = PB shows: - Hypochromic anemia Smear Path) with anisopoikilocytsosis, a few elliptocytes, rneuka cells, and slight polychromasia. - Adequate WBC count with lymphocytopenia and occasional reactive lymphocytes. - Mild thrombocytopenia; no increase in schistocytes and no platelet clumps seen. Impression: (1) no evidence of microangiopathic hemolysis, (2) RBC morphology is suggestive of renal disease and iron deficiency anemia vs. anemia of chronic disease. CPT: [address] [facility] [place], [id number] 07:28:00 Test Item Value Reference Range Interpretation Comments HIV. (test code = Negative *NA*(03/05/17 HIV.) 2:28 AM) [id number] 07:28:00 Test Item Value Reference Range Interpretation Comments Hep C Ab (test code = Negative *NA*(03/05/17 Hep C Ab) 2:28 AM) [id number] 07:28:00 Test Item Value Reference Range Interpretation Comments PB Smear Path Peripheral blood smear (test code = PB shows: - Hypochromic anemia Smear Path) with anisopoikilocytsosis, a few elliptocytes, renuka cells, and slight polychromasia. - Adequate WBC count with lymphocytopenia and occasional reactive lymphocytes. - Mild thrombocytopenia; no increase in schistocytes and no platelet clumps seen. Impression: (1) no evidence of microangiopathic hemolysis, (2) RBC morphology is suggestive of renal disease and iron deficiency anemia vs. anemia of chronic disease. CPT: [address] [facility] [place], [id number] 07:28:00 Test Item Value Reference Range Interpretation Comments HIV. (test code = Negative *NA*(03/05/17 HIV.) 2:28 AM) [facility] [place], [id number] 07:28:00 Test Item Value Reference Range Interpretation Comments Hep C Ab (test code = Negative *NA*(03/05/17 Hep C Ab) 2:28 AM) [facility] [id number] 08:17:00 Test Item Value Reference Range Interpretation Comments Osmolality (test code = Osmolality) 291 280-300 [facility] [id number] 08:17:00 Test Item Value Reference Range Interpretation Comments Osmolality (test code = Osmolality) 291 280-300 [facility] [id number] 02:41:00 Test Item Value Reference Range Interpretation Comments Osmolality (test code = Osmolality) 295 280-300 [facility] [id number] 02:41:00 Test Item Value Reference Range Interpretation Comments Osmolality (test code = Osmolality) 295 280-300 [facility] [id number] 10:16:00 Test Item Value Reference Range Interpretation Comments Source Respiratory Panel [employer] Swab PCR (test code = Source (03/02/17 5:16 AM) Respiratory Panel PCR) [facility]2017-09-24 10:16:00 Test Item Value Reference Range Interpretation Comments Influenza A PCR (test Negative (03/02/17 5:16 code = Influenza A PCR) AM) [facility]2017-09-24 10:16:00 Test Item Value Reference Range Interpretation Comments Influenza B PCR (test Negative (03/02/17 5:16 code = Influenza B PCR) AM) [facility]2017-09-24 10:16:00 Test Item Value Reference Range Interpretation Comments RSV PCR (test code = Negative (03/02/17 5:16 RSV PCR) AM) [facility] [id number] 10:16:00 Test Item Value Reference Range Interpretation Comments Source Adenovirus PCR [employer] Swab (test code = Source (03/02/17 5:16 AM) Adenovirus PCR) [facility]2017-09-24 10:16:00 Test Item Value Reference Range Interpretation Comments Adenovirus PCR (test Negative (03/02/17 code = Adenovirus PCR) 5:16 AM) [facility]2017-09-24 10:16:00 Test Item Value Reference Range Interpretation Comments Parainfluenza 3 PCR (test Negative (03/02/17 code = Parainfluenza 3 5:16 AM) PCR) [facility]2017-09-24 10:16:00 Test Item Value Reference Range Interpretation Comments Parainfluenza 1 PCR (test Negative (03/02/17 code = Parainfluenza 1 5:16 AM) PCR) [facility]2017-09-24 10:16:00 Test Item Value Reference Range Interpretation Comments Parainfluenza 2 PCR (test Negative (03/02/17 code = Parainfluenza 2 5:16 AM) PCR) [facility]2017-09-24 10:16:00 Test Item Value Reference Range Interpretation Comments Source Parainfluenza Virus [employer] Swab PCR (test code = Source (03/02/17 5:16 AM) Parainfluenza Virus PCR) [facility]2017-09-24 10:16:00 Test Item Value Reference Range Interpretation Comments Source Respiratory Panel [employer] Swab PCR (test code = Source (03/02/17 5:16 AM) Respiratory Panel PCR) [facility]2017-09-24 10:16:00 Test Item Value Reference Range Interpretation Comments Influenza A PCR (test Negative (03/02/17 5:16 code = Influenza A PCR) AM) [facility]2017-09-24 10:16:00 Test Item Value Reference Range Interpretation Comments Influenza B PCR (test Negative (03/02/17 5:16 code = Influenza B PCR) AM) [facility]2017-09-24 10:16:00 Test Item Value Reference Range Interpretation Comments RSV PCR (test code = Negative (03/02/17 5:16 RSV PCR) AM) [facility]2017-09-24 10:16:00 Test Item Value Reference Range Interpretation Comments Source Adenovirus PCR [employer] Swab (test code = Source (03/02/17 5:16 AM) Adenovirus PCR) [facility]2017-09-24 10:16:00 Test Item Value Reference Range Interpretation Comments Adenovirus PCR (test Negative (03/02/17 code = Adenovirus PCR) 5:16 AM) [facility]2017-09-24 10:16:00 Test Item Value Reference Range Interpretation Comments Parainfluenza 3 PCR (test Negative (03/02/17 code = Parainfluenza 3 5:16 AM) PCR) [facility]2017-09-24 10:16:00 Test Item Value Reference Range Interpretation Comments Parainfluenza 1 PCR (test Negative (03/02/17 code = Parainfluenza 1 5:16 AM) PCR) [facility]2017-09-24 10:16:00 Test Item Value Reference Range Interpretation Comments Parainfluenza 2 PCR (test Negative (03/02/17 code = Parainfluenza 2 5:16 AM) PCR) [facility]2017-09-24 10:16:00 Test Item Value Reference Range Interpretation Comments Source Parainfluenza Virus [employer] Swab PCR (test code = Source (03/02/17 5:16 AM) Parainfluenza Virus PCR) [facility] [id number] 10:04:00 Test Item Value Reference Range Interpretation Comments PB Smear Path Peripheral blood smear (test code = PB shows hypochromic anemia Smear Path) with anisopoikilocytsosis, a few elliptocytes, no increase in schistocytes, slight polychromasia, mild thrombocytopenia. Impression: (1) no evidence of microangiopathic hemolysis, (2) RBC morphology is sugestive of iron deficiency anemia vs. anemia of chronic disease. CPT: 00389 [facility] [id number] 10:04:00 Test Item Value Reference Range Interpretation Comments PB Smear Path Peripheral blood smear (test code = PB shows hypochromic anemia Smear Path) with anisopoikilocytsosis, a few elliptocytes, no increase in schistocytes, slight polychromasia, mild thrombocytopenia. Impression: (1) no evidence of microangiopathic hemolysis, (2) RBC morphology is sugestive of iron deficiency anemia vs. anemia of chronic disease. CPT: 88109 [facility]2017-09-24 01:11:00 Test Item Value Reference Range Interpretation Comments C1 Esterase Inh (test code = C1 18 21-39 Esterase Inh) [facility] [id number] 01:11:00 Test Item Value Reference Range Interpretation Comments C1 Esterase Inh (test code = C1 18 21-39 Esterase Inh) [facility] [id number] 21:03:00 Test Item Value Reference Range Interpretation Comments Troponin-T (test code 0.083 See_Comment [Auto mated message] The = Troponin-T) system which g enerated this result transmit jeremías reference range : <=0.100. The reference r nhung was not used to interpr et this result as rosa l/abnormal. [facility] [place], [employer] [id number] 21:03:00 Test Item Value Reference Range Interpretation Comments Ammonia (test code = Ammonia) 36.[address] [facility] [place], TxTutor [id number] 21:03:00 Test Item Value Reference Range Interpretation Comments Lactic Acid Lvl (test code = Lactic 0.8 0.5-2.2 Acid Lvl) [facility] [id number] 21:03:00 Test Item Value Reference Range Interpretation Comments Hgb A1C (test code = Hgb A1C) 5.2 [facility] [id number] 21:03:00 Test Item Value Reference Range Interpretation Comments Troponin-T (test code 0.083 See_Comment [Auto mated message] The = Troponin-T) system which g enerated this result transmit jeremías reference range : <=0.100. The reference r nhung was not used to interpr et this result as rosa l/abnormal. [facility] [employer] [id number] 21:03:00 Test Item Value Reference Range Interpretation Comments Ammonia (test code = Ammonia) 36.0 [id number] 21:03:00 Test Item Value Reference Range Interpretation Comments Lactic Acid Lvl (test code = Lactic 0.8 0.5-2.2 Acid Lvl) [facility]2017-09-23 21:03:00 Test Item Value Reference Range Interpretation Comments Hgb A1C (test code = Hgb A1C) 5.2 [facility]cosannBACTERIAL - [id number] 21:02:00 Test Item Value Reference Range Interpretation Comments MRSA by PCR (test Negative (03/01/17 4:02 code = MRSA by PCR) PM) [facility] [place], TxCARDIAC [id number] 21:02:00 Test Item Value Reference Range Interpretation Comments BNP (test code = BNP) 778 [facility] [id number] 21:02:00 Test Item Value Reference Range Interpretation Comments PTT (test code = PTT) 37.9 s 22.9-35.8 [facility] CenterannUR[facility] AND [id number] 21:02:00 Test Item Value Reference Range Interpretation Comments UA Bacteria (test code = UA Occasional /HPF Bacteria) [facility]annBACT[facility] - [id number] 21:02:00 Test Item Value Reference Range Interpretation Comments MRSA by PCR (test Negative (03/01/17 4:02 code = MRSA by PCR) PM) [facility] [place], TxCARDIAC [id number] 21:02:00 Test Item Value Reference Range Interpretation Comments BNP (test code = BNP) 778 [facility] [id number] 21:02:00 Test Item Value Reference Range Interpretation Comments PTT (test code = PTT) 37.9 s 22.9-35.8 [facility] [id number] 21:02:00 Test Item Value Reference Range Interpretation Comments UA Bacteria (test code = UA Occasional /HPF Bacteria) [facility] [place], [employer] [id number] 21:00:00 Test Item Value Reference Range Interpretation Comments Lipase Lvl (test code = Lipase Lvl) 5472 28-081 [facility] [id number] 21:00:00 Test Item Value Reference Range Interpretation Comments U Chloride (test code = U Chloride) [address] [facility], [employer]xThe [employer] [id number] 21:00:00 Test Item Value Reference Range Interpretation Comments Lipase Lvl (test code = Lipase Lvl) 5472 16-690 [facility] [id number] 21:00:00 Test Item Value Reference Range Interpretation Comments U Chloride (test code = U Chloride) [address] [facility] [place]
[2022-02-18] MEDS ORDERED: DERMABOND SKIN ADHESIVE TOP ONE (01:18)
--- NOTE | 2022-02-18 01:22 | EDPHYS ---
Physician Documentation [facility] Name: Ray Solomon Age: 77 yrs Sex: Male : 1945 Arrival Date: 02/17/2022 Time: 23:42 Bed 14 Private MD: ED Physician Iglesia Bridges HPI: 02/17 23:52 This 77 yrs old Male presents to ER via Unassigned with complaints of Fall snw Injury. 23:52 Details of fall: The patient fell from an upright position, while walking. Onset: The snw symptoms/episode began/occurred suddenly, just prior to arrival. Associated injuries: The patient sustained injury to the head, laceration, 2 cm(s), of the bridge of nose. Severity of symptoms: At their worst the symptoms were mild. The patient has not experienced similar symptoms in the past. It is unknown whether or not the patient has recently seen a physician. pt states he tripped over his slipper and fell striking his nose on the [place] surround. Historical: - Allergies: 02/18 00:07 cefepime; ha1 - PMHx: 00:18 CVA; Diabetes - NIDDM; Hyperlipidemia; Hypertension; parathyroid hormone excess; Renal ke1 Disease; St 3; - Immunization history:: Adult Immunizations up to date. - Social history:: Smoking status: Patient denies any tobacco usage or history of. ROS: 02/17 23:51 Constitutional: Negative for fever, chills, and weight loss, Eyes: Negative for injury, snw pain, redness, and discharge, Neck: Negative for injury, pain, and swelling, Cardiovascular: Negative for chest pain, palpitations, and edema, Respiratory: Negative for shortness of breath, cough, wheezing, and pleuritic chest pain, Abdomen/GI: Negative for abdominal pain, nausea, vomiting, diarrhea, and constipation, Back: Negative for injury and pain, : Negative for injury, bleeding, discharge, and swelling, MS/Extremity: Negative for injury and deformity, Skin: Negative for injury, rash, and discoloration, Neuro: Negative for headache, weakness, numbness, tingling, and seizure, Psych: Negative for depression, anxiety, suicide ideation, homicidal ideation, and hallucinations. ENT: Positive for nasal bridge laceration. Exam: 02/18 00:05 Constitutional: This is a well developed, well nourished patient who is awake, alert, snw and in no acute distress. Eyes: Pupils equal round and reactive to light, extra-ocular motions intact. Lids and lashes normal. Conjunctiva and sclera are non-icteric and not injected. Cornea within normal limits. Periorbital areas with no swelling, redness, or edema. ENT: Nares patent. No nasal discharge, no septal abnormalities noted. Tympanic membranes are normal and external auditory canals are clear. Oropharynx with no redness, swelling, or masses, exudates, or evidence of obstruction, uvula midline. Mucous membranes moist. Neck: Trachea midline, no thyromegaly or masses palpated, and no cervical lymphadenopathy. Supple, full range of motion without nuchal rigidity, or vertebral point tenderness. No Meningismus. Chest/axilla: Normal chest wall appearance and motion. Nontender with no deformity. No lesions are appreciated. Cardiovascular: Regular rate and rhythm with a normal S1 and S2. No gallops, murmurs, or rubs. Normal PMI, no JVD. No pulse deficits. Respiratory: Lungs have equal breath sounds bilaterally, clear to auscultation and percussion. No rales, rhonchi or wheezes noted. No increased work of breathing, no retractions or nasal flaring. Abdomen/GI: Soft, non-tender, with normal bowel sounds. No distension or tympany. No guarding or rebound. No evidence of tenderness throughout. Back: No spinal tenderness. No costovertebral tenderness. Full range of motion. Skin: Warm, dry with normal turgor. Normal color with no rashes, no lesions, and no evidence of cellulitis. MS/ Extremity: Pulses equal, no cyanosis. Neurovascular intact. Full, normal range of motion. Neuro: Awake and alert, GCS 15, oriented to person, place, time, and situation. Cranial nerves II-XII grossly intact. Motor strength 5/5 in all extremities. Sensory grossly intact. Cerebellar exam normal. Normal gait. Psych: Awake, alert, with orientation to person, place and time. Behavior, mood, and affect are within normal limits. Head/face: Noted is a laceration(s), that is superficial, 2 cm(s), of the bridge of nose. Vital Signs: 00:03 BP 143 / 77; Pulse 78; Resp 17; Temp 98.4; Pulse Ox 98% on R/A; Weight 107.95 kg; ha1 Height 5 ft. 8 in. (172.72 cm); 00:09 BP 143 / 77; Pulse 78; Resp 17 S; Temp 98.4; Pulse Ox 98% on R/A; Weight 107.9 kg; ha1 Height 5 ft. 8 in. (172.72 cm); 01:26 BP 133 / 76; Pulse 76; Resp 17; Pulse Ox 100% on R/A; Pain 0/10; ke1 00:09 Body Mass Index 36.17 (107.90 kg, 172.72 cm) ha1 Britany Coma Score: 00:20 Eye Response: spontaneous(4). Verbal Response: oriented(5). Motor Response: obeys ke1 commands(6). Total: 15. Trauma Score (Adult): 00:20 Eye Response: spontaneous(1); Verbal Response: oriented(1); Motor Response: obeys ke1 commands(2); Systolic BP: > 89 mm Hg(4); Respiratory Rate: 10 to 29 per min(4); Remsen Score: 15; Trauma Score: 12 Laceration: 01:20 Wound Repair of 2cm ( 0.8in ) subcutaneous laceration to bridge of nose. Skin/tissue snw flap noted.. Distal neuro/vascular/tendon intact. Anesthesia: Local anesthetic administered with 0 mls of 1% lidocaine. Wound prep: Moderate cleansing with hibiclenz by nurse by ca. Skin closed with 1-0 Adhesive skin closure using Dermabond. Patient tolerated well. MDM: 02/17 23:54 Patient medically screened. snw 02/18 01:22 Data reviewed: vital signs, nurses notes. Data interpreted: Pulse oximetry: on room air snw is 98 %. Interpretation: normal. Counseling: I had a detailed discussion with the patient and/or guardian regarding: the historical points, exam findings, and any diagnostic results supporting the discharge/admit diagnosis, the presence of at least one elevated blood pressure reading (>120/80) during this emergency department visit, radiology results, the need for outpatient follow up, to return to the emergency department if symptoms worsen or persist or if there are any questions or concerns that arise at home. Response to treatment: the patient's symptoms have markedly improved after treatment. Special discussion: Based on the patient's history, exam and DX evaluation, there is no indication for emergent intervention or inpatient TX. It is understood by the patient/guardian that if the SXs persist or worsen they need to return immediately for re-evaluation. Based on the history and exam findings, there is no indication for further emergent testing or inpatient evaluation. I discussed with the patient/guardian the need to see the primary care provider for further evaluation of the symptoms. 02/17 23:54 Order name: CT Head C Spine snw 02/18 01:00 Order name: Dermabond; Complete Time: 01:32 snw Administered Medications: No medications were administered Disposition: 04:13 Co-signature as Attending Physician, Iglesia Bridges DO I was immediately available on-site ms3 in the Emergency Department for consultation in the care of the patient. Disposition Summary: 02/18/22 01:21 Discharge Ordered Location: Home snw Condition: Stable snw Diagnosis - Fall on same level from slipping, tripping and stumbling with subsequent striking snw against object - Nasal bridge laceration snw Followup: snw - With: Emergency Department - When: As needed - Reason: Worsening of condition Followup: snw - With: Private Physician - When: 2 - 3 days - Reason: Recheck today's complaints, Continuance of care, Re-evaluation by your physician Discharge Instructions: - Discharge Summary Sheet snw - Tissue Adhesive Wound Care snw - Fall Prevention in the Home, Adult snw - Facial Laceration snw Forms: - Medication Reconciliation Form snw - Thank You Letter snw - Antibiotic Education snw - Prescription Opioid Use snw Signatures: Dispatcher [employer] EDRoxanne Arshad FNP-C PAYROLL ASSISTANT-Csnw Iglesia Bridges DO DO ms3 Juarez Owusu RN RN ke1 Lori Quarles RN RN ha1
--- NOTE | 2022-02-18 01:22 | ER ---
Nurse's Notes [facility] Name: Ray Solomon Age: 77 yrs Sex: Male : 1945 Arrival Date: 02/17/2022 Time: 23:42 Bed 14 Private MD: Diagnosis: Fall on same level from slipping, tripping and stumbling with subsequent striking against object;Nasal bridge laceration Presentation: 02/18 00:03 Chief complaint: Patient states: I fell and cut my nose. I was bleeding a lot so I ha1 decided to get help. Coronavirus screen: Vaccine status: Patient reports receiving the 2nd dose of the covid vaccine. [email or web address]. Ebola Screen: No symptoms or risks identified at this time. Initial Sepsis Screen: Does the patient meet any 2 criteria? No. Patient's initial sepsis screen is negative. Does the patient have a suspected source of infection? No. Patient's initial sepsis screen is negative. Risk Assessment: Do you want to hurt yourself or someone else? Patient reports no desire to harm self or others. Onset of symptoms was February 18, 2022. 00:03 Method Of Arrival: Ambulatory ha1 00:03 Acuity: IQRA 3 ha1 Triage Assessment: 00:07 General: Appears in no apparent distress. Behavior is calm, cooperative. 1 Historical: - Allergies: 00:07 cefepime; ha1 - PMHx: 00:18 CVA; Diabetes - NIDDM; Hyperlipidemia; Hypertension; parathyroid hormone excess; Renal ke1 Disease; St 3; - Immunization history:: Adult Immunizations up to date. - Social history:: Smoking status: Patient denies any tobacco usage or history of. Screenin:27 Abuse screen: Denies threats or abuse. Nutritional screening: No deficits noted. ke1 Tuberculosis screening: No symptoms or risk factors identified. 00:28 Fall Risk Fall in past 12 months (25 points). No secondary diagnosis (0 pts). No IV (0 ke1 pts). Ambulatory Aid- None/Bed Rest/Nurse Assist (0 pts). Gait- Normal/Bed Rest/Wheelchair (0 pts) Mental Status- Oriented to own ability (0 pts). Total Kemp Fall Scale indicates Low Risk Score (25-44 pts). Fall prevention measures have been instituted. Side Rails Up X 2 Placed close to Nursing Station Frequent Obs/Assesments occuring Family Present and informed to notify staff if they need to leave bedside. Assessment: 00:25 General: Appears in no apparent distress. Behavior is appropriate for age. Neuro: ke1 Harry Agitation-Sedation Scale (RASS): 0 - Alert and Calm Level of Consciousness is awake, alert, Oriented to person, place, time, situation. Cardiovascular: Capillary refill < 3 seconds. Respiratory: Airway is patent Trachea midline Respiratory effort is even, unlabored, Respiratory pattern is regular, symmetrical. Injury Description: small opening nose bridge. 00:26 Pain: Denies pain. ke1 01:25 Reassessment: Patient is alert, oriented x 3, equal unlabored respirations, skin ke1 warm/dry/pink. Reassessment: Dermabond applied by provider, well tolerated by patient, talking and laughing during procedure. Vital Signs: 00:03 BP 143 / 77; Pulse 78; Resp 17; Temp 98.4; Pulse Ox 98% on R/A; Weight 107.95 kg; ha1 Height 5 ft. 8 in. (172.72 cm); 00:09 BP 143 / 77; Pulse 78; Resp 17 S; Temp 98.4; Pulse Ox 98% on R/A; Weight 107.9 kg; ha1 Height 5 ft. 8 in. (172.72 cm); 01:26 BP 133 / 76; Pulse 76; Resp 17; Pulse Ox 100% on R/A; Pain 0/10; ke1 00:09 Body Mass Index 36.17 (107.90 kg, 172.72 cm) ha1 Britany Coma Score: 00:20 Eye Response: spontaneous(4). Verbal Response: oriented(5). Motor Response: obeys ke1 commands(6). Total: 15. Trauma Score (Adult): 00:20 Eye Response: spontaneous(1); Verbal Response: oriented(1); Motor Response: obeys ke1 commands(2); Systolic BP: > 89 mm Hg(4); Respiratory Rate: 10 to 29 per min(4); Britany Score: 15; Trauma Score: 12 ED Course: 02/17 23:42 Patient arrived in ED. ja2 23:43 [facility]ox[facility] Mccray F[facility]-C [facility] snw 23:43 Iglesia Bridges DO is Attending Physician. snw 02/18 00:06 Triage completed. ha1 00:07 Arm band placed on right wrist. ha1 00:17 Juarez Owusu, RN is Primary Nurse. ke1 00:28 Bed in low position. Call light in reach. ke1 01:03 CT Head C Spine In Process Unspecified. EDMS 01:24 No provider procedures requiring assistance completed. Patient did not have IV access ke1 during this emergency room visit. Administered Medications: No medications were administered Medication: 01:24 VIS not applicable for this client. ke1 Outcome: 01:21 Discharge ordered by MD. snw 01:24 Discharged to home ke1 01:24 Discharged to home ambulatory. 01:24 Condition: good 01:24 Discharge instructions given to patient. 01:32 Patient left the ED. ke1 Signatures: Dispatcher [employer] Roxanne Monae, PATHOLOGY MANAGER-C PATHOLOGY MANAGER-Csnw Giana Palmer2 Juarez Owusu, RN RN ke1 Lori Quarles RN RN 1
[2022-02-18 04:25] VITALS: TEMP 98.4
[2022-02-18 04:29] VITALS: BP 133/76; O2SAT 100
--- NOTE | 2022-02-18 13:01 | RAD REPORT ---
EXAM DESCRIPTION: CT Head and Cervical Spine Without Intravenous Contrast CLINICAL HISTORY: The patient is 77 years old and is Male; fall TECHNIQUE: Axial computed tomography images of the head/brain and cervical spine without intravenous contrast. Sagittal and coronal reformatted images were created and reviewed. This CT exam was pe rformed using one or more of the following dose reduction techniques: automated exposure control, a djustment of the mA and/or kV according to patient size, and/or use of iterative reconstruction techn ique. COMPARISON: No relevant prior studies available. FINDINGS: Brain: Moderate nonspecific white matter changes likely related to chronic microvascular ischemic disease. No hemorrhage. Ventricles: Unremarkable. No ventriculomegaly. Skull: No acute fracture. Sinuses: Unremarkable as visualized. No acute sinusitis. Mastoid air cells: Unremarkable as visualized. No mastoid effusion. Vertebrae: No acute fracture or subluxation. Discs/spinal canal/neural foramina: Disc space narrowing with degenerative endplate changes most prominent at C6-7. Moderate bilateral neural foraminal narrowing at C3-4. Moderate bilateral neural foraminal narrowing at C6-7. Soft tissues: Unremarkable. IMPRESSION: No acute intracranial abnormality. No acute findings in the cervical spine. Electronically signed by: Camilo Alfonso MD 02/18/2022 1:09 AM CDT Due to temporary technical issues with the PACS/Fluency reporting system, reports are being signed by the in house radiologists without review as a courtesy to insure prompt reporting. The interpreting radiologist is fully responsible for the content of the report.
== END 2022-02-18 01:32 | disposition home or self-care (01) ==
LOC: ER 23:36
PROC: 0JQ10ZZ Repair Face Subcutaneous Tissue and Fascia, Open Approach (ICD-10-PCS; principal; 2022-02-18)
DX: S01.21XA Laceration without foreign body of nose, initial encounter (principal); W01.10XA Fall on same level from slipping, tripping and stumbling with subsequent striking against unspecified object, initial encounter; E11.22 Type 2 diabetes mellitus with diabetic chronic kidney disease; I12.9 Hypertensive chronic kidney disease with stage 1 through stage 4 chronic kidney disease, or unspecified chronic kidney disease; N18.30 Chronic kidney disease, stage 3 unspecified; Z86.73 Personal history of transient ischemic attack (TIA), and cerebral infarction without residual deficits; Z88.8 Allergy status to other drugs, medicaments and biological substances
CPT/HCPCS: 70450; 72125; 99283